=== PATIENT | female | born 1960 | race African-American/Black ===

== ENCOUNTER → 2017-01-18 | Outpatient (CLI) | payer BC ==
--- NOTE | 2017-01-18 17:09 | XR ---
Left foot HISTORY: Osteomyelitis great toe 3 views of the left foot No comparisons There is loss of bone mineralization, some suspected ostial lysis of the distal aspect of the first d igit of the left foot. No dislocation. There is associated soft tissue swelling. Plantar calcaneal sp ur is present. Degenerative changes are present at the intertarsal joints. IMPRESSION: Osteomyelitis first digit.
== END ==
LOC: RADXRMAIN 12:14
PROVIDERS: ATTEND Podiatrist Foot Surgery
DX: M86.8X7 Other osteomyelitis, ankle and foot (principal)

== ENCOUNTER → 2017-02-13 | Outpatient (CLI) | payer BC ==
--- NOTE | 2017-02-13 11:23 | US ---
LOWER EXTREMITY VENOUS INSUFFICIENCY SIDE PERFORMED: Bilateral 1) Color flow is present and patency is documented in the following vessels. No DVT or SVT is noted . ? EIV ? Common Femoral Vein ? Deep Femoral Vein ? Femoral Vein ? Popliteal Vein ? Proximal Calf Veins ? Greater Saph Vein ? Upper Small Saph Vein 2) There is venous reflux noted at the following venous levels: None No ultrasound evidence for acute DVT in either lower extremity. No suspicious venous reflux seen bila terally during real-time scanning per technologist. IMPRESSION: As above, unremarkable study.
--- NOTE | 2017-02-15 10:18 | P.ARTDOP ---
Arterial Doppler LOWER EXTREMITY ARTERIAL DOPPLER: DATE OF SERVICE: 02/13/2017 Reason for study: Left leg pain. Doppler waveforms: Multiphasic bilaterally throughout. Pulse volume recording: Normal configuration. Pressure gradients: None. Ankle-brachial indices: Greater than 1 on the left and 0.99 on the right Toe pressures: 98 on the right, 98 on the left Impression: Normal study.
== END | disposition home or self-care (01) ==
LOC: RADUSWWP 09:44
PROVIDERS: ATTEND Surgery
DX: M79.605 Pain in left leg (principal)
CPT/HCPCS: 93923; 93970

== ENCOUNTER → 2017-02-17 | Outpatient (CLI) | payer BC ==
--- NOTE | 2017-02-17 09:47 | MM ---
Reason for exam: additional evaluation requested from prior study. Last mammogram was performed 1 year and 3 months ago. History: Family history of breast cancer in 3 aunts and breast cancer in mother at age 38. Indicated problem(s): pain in both breasts. Physical Findings: Nurse did not find any significant physical abnormalities on exam. MG Diagnostic Mammo w CAD SHARON Bilateral CC, MLO, and XCCL view(s) were taken. Prior study comparison: November 20, 2015, bilateral MG 3d screening mammo w/cad. October 06, 2014, mammogram, performed at [facility]. The breast tissue is almost entirely fat. There is chronic nodularity in the right breast. No significant new findings when compared with previous films. These results were verbally communicated with the patient and result sheet given to the patient on 02/17/17. ASSESSMENT: Benign, BI-RAD 2 RECOMMENDATION: Routine screening mammogram of both breasts in 1 year. Manage patient on a clinical basis. Consider BRHCA testing secondary to family history.
== END | disposition home or self-care (01) ==
LOC: RADMAMWWP 07:47
PROVIDERS: ATTEND Family Medicine
DX: N64.4 Mastodynia (principal)

== ENCOUNTER 2021-07-31 01:35 | Inpatient (IN) | payer BC ==
[2021-07-31] MEDS ORDERED: SODIUM CHLORIDE 0.9% 500 ML 500 ML IV STA (02:09)
[2021-07-31] MEDS ORDERED: IBUPROFEN IV 800 MG in SODIUM CHLORIDE 0.9% 250 ML IV ONE (02:11)
[2021-07-31] MEDS ORDERED: DEXAMETHASONE SOD PHOSPHATE 10 MG/ML 1 ML VIAL IVP STA (02:11)
--- NOTE | 2021-07-31 02:39 | ED ---
General Adult HPI - General Chief complaint: Shortness of Breath Stated complaint: SOB, weakness Time Seen by Provider: 07/31/21 02:05 Source: patient, family Mode of arrival: ambulatory Limitations: no limitations - History of Present Illness Initial comments: 60-year-old female patient presents to the emergency department today for evaluation of increased shortness of breath. Patient states she's been sick for the last week with cough and upper respiratory symptoms. States she has had body aches and weakness. She is unsure she's had fevers throughout the week. She does have history of asthma and has been doing breathing treatments, states she had one breathing treatment earlier in the day. She denies taking any other medications. Denies any other medical problems. She denies any nausea, vomiting, diarrhea. Denies any chest pain. Denies coughing up sputum. She is not vaccinated for Covid. Patient denies any recent rash, abdominal pain, constipation, back pain, numbness, tingling, dizziness, hematuria, dysuria, urinary urgency, urinary frequency, headache, visual changes, or any other complaints. - Related Data Home Medications Medication Instructions Recorded Confirmed Lisinopril-Hctz 20-25 mg 1 tab PO HS 02/24/15 02/21/17 [Zestoretic 20-25] Acetaminophen [Tylenol] 650 mg PO Q6HR PRN 01/24/17 02/21/17 Biotin 10,000 mcg PO HS 01/31/17 02/21/17 Calcium Carbonate/Vitamin D3 1 tab PO HS 01/31/17 02/21/17 [Calcium 500-Vit D3 200 Tablet] Montelukast [Singulair] 10 mg PO HS 01/31/17 02/21/17 Multivitamin [Multiple Vitamins] 1 tab PO DAILY 01/31/17 02/21/17 Allergies Allergy/AdvReac Type Severity Reaction Status Date / Time clarithromycin [From Biaxin] AdvReac Rash/Hives Verified 07/31/21 01:52 Review of Systems ROS Statement: Those systems with pertinent positive or pertinent negative responses have been documented in the HPI. ROS Other: All systems not noted in ROS Statement are negative. Past Medical History Past Medical History: Asthma, Hypertension History of Any Multi-Drug Resistant Organisms: None Reported Past Surgical History: Orthopedic Surgery Additional Past Surgical History / Comment(s): ganglion cyst removal x2, left knee replacement, lasix eye surgery Past Anesthesia/Blood Transfusion Reactions: No Reported Reaction Past Psychological History: No Psychological Hx Reported Smoking Status: Never smoker Past Alcohol Use History: Occasional Past Drug Use History: None Reported - Past Family History Mother Family Medical History: Cancer Additional Family Medical History / Comment(s): BREAST Father Family Medical History: Cancer, Prostate Disorder Additional Family Medical History / Comment(s): LUNG PROSTATE Sister(s) Family Medical History: Cancer Additional Family Medical History / Comment(s): THYROID AND HIP CANCER General Exam Limitations: no limitations General appearance: alert, in no apparent distress ENT exam: Present: normal exam, normal oropharynx, mucous membranes moist Respiratory exam: Present: normal lung sounds bilaterally, respiratory distress, other (Tachypnea; abdominal accessory muscle use). Absent: wheezes, rales, rhonchi, stridor Cardiovascular Exam: Present: normal rhythm, tachycardia, normal heart sounds. Absent: systolic murmur, diastolic murmur, rubs, gallop, clicks GI/Abdominal exam: Present: soft, normal bowel sounds. Absent: distended, tenderness, guarding, rebound, rigid Neurological exam: Present: alert, oriented X3, CN II-XII intact Psychiatric exam: Present: normal affect, normal mood Skin exam: Present: warm, dry, intact, normal color. Absent: rash Course Vital Signs 07/31/21 07/31/21 01:48 03:44 Temperature 101.4 F H 99.9 F H Pulse Rate 101 H 84 Respiratory 20 18 Rate Blood Pressure 157/77 139/79 O2 Sat by Pulse 86 L 96 Oximetry Medical Decision Making - Medical Decision Making 60 year-old female patient sick for the last week with upper respiratory symptoms and cough, presenting for increased shortness of breath. Tested positive for COVID-19, xray showed extensive right lung pneumonia. Labs revealed elevated d-dimer 1.45. CTA chest was added and is pending. She was given Decad cooper IV, IV ibuprofen, and IV fluids. Oxygen saturation on arrival was mid 80s on room air. She is currently maintained on non-rebreather, satting at 96%. She remains short of breath and tachypneic. She will be admitted for further evaluation and treatment. Pulmonology will be consulted. We will continue steroids and add vitamins and ventolin inhaler. Case discussed with my attending Dr. Hutchins. - Lab Data Result diagrams: 07/31/21 02:29 07/31/21 02:29 Lab Results 07/31/21 07/31/21 07/31/21 Range/Units 02:29 02:29 02:29 WBC 5.7 (3.8-10.6) k/uL RBC 4.08 (3.80-5.40) m/uL Hgb 12.2 (11.4-16.0) gm/dL Hct 34.9 (34.0-46.0) % MCV 85.4 (80.0-100.0) fL MCH 29.8 (25.0-35.0) pg MCHC 34.9 (31.0-37.0) g/dL RDW 15.2 (11.5-15.5) % Plt Count 243 (150-450) k/uL MPV 8.5 Neutrophils % 76 % Lymphocytes % 16 % Monocytes % 5 % Eosinophils % 0 % Basophils % 0 % Neutrophils # 4.3 (1.3-7.7) k/uL Lymphocytes # 0.9 L (1.0-4.8) k/uL Monocytes # 0.3 (0-1.0) k/uL Eosinophils # 0.0 (0-0.7) k/uL Basophils # 0.0 (0-0.2) k/uL PT 10.1 (9.0-12.0) sec INR 0.9 (<1.2) APTT 23.9 (22.0-30.0) sec D-Dimer 1.45 H (<0.60) mg/L FEU Sodium 138 (137-145) mmol/L Potassium 3.9 (3.5-5.1) mmol/L Chloride 99 (98-107) mmol/L Carbon Dioxide 30 (22-30) mmol/L Anion Gap 9 mmol/L BUN 17 (7-17) mg/dL Creatinine 0.85 (0.52-1.04) mg/dL Est GFR (CKD-EPI)AfAm 86 (>60 ml/min/1.73 sqM) Est GFR (CKD-EPI)NonAf 75 (>60 ml/min/1.73 sqM) Glucose 133 H (74-99) mg/dL Plasma Lactic Acid Godfrey (0.7-2.0) mmol/L Calcium 8.9 (8.4-10.2) mg/dL Magnesium 2.1 (1.6-2.3) mg/dL Total Bilirubin 1.1 (0.2-1.3) mg/dL AST 96 H (14-36) U/L ALT 41 H (4-34) U/L Alkaline Phosphatase 85 (38-126) U/L Troponin I (0.000-0.034) ng/mL Total Protein 7.3 (6.3-8.2) g/dL Albumin 4.0 (3.5-5.0) g/dL Coronavirus (PCR) (Not Detectd) 07/31/21 07/31/21 07/31/21 Range/Units 02:29 02:29 02:29 WBC (3.8-10.6) k/uL RBC (3.80-5.40) m/uL Hgb (11.4-16.0) gm/dL Hct (34.0-46.0) % MCV (80.0-100.0) fL MCH (25.0-35.0) pg MCHC (31.0-37.0) g/dL RDW (11.5-15.5) % Plt Count (150-450) k/uL MPV Neutrophils % % Lymphocytes % % Monocytes % % Eosinophils % % Basophils % % Neutrophils # (1.3-7.7) k/uL Lymphocytes # (1.0-4.8) k/uL Monocytes # (0-1.0) k/uL Eosinophils # (0-0.7) k/uL Basophils # (0-0.2) k/uL PT (9.0-12.0) sec INR (<1.2) APTT (22.0-30.0) sec D-Dimer (<0.60) mg/L FEU Sodium (137-145) mmol/L Potassium (3.5-5.1) mmol/L Chloride (98-107) mmol/L Carbon Dioxide (22-30) mmol/L Anion Gap mmol/L BUN (7-17) mg/dL Creatinine (0.52-1.04) mg/dL Est GFR (CKD-EPI)AfAm (>60 ml/min/1.73 sqM) Est GFR (CKD-EPI)NonAf (>60 ml/min/1.73 sqM) Glucose (74-99) mg/dL Plasma Lactic Acid Godfrey 1.2 (0.7-2.0) mmol/L Calcium (8.4-10.2) mg/dL Magnesium (1.6-2.3) mg/dL Total Bilirubin (0.2-1.3) mg/dL AST (14-36) U/L ALT (4-34) U/L Alkaline Phosphatase (38-126) U/L Troponin I 0.012 (0.000-0.034) ng/mL Total Protein (6.3-8.2) g/dL Albumin (3.5-5.0) g/dL Coronavirus (PCR) Detected A (Not Detectd) - Radiology Data Radiology results: report reviewed, image reviewed 2 views of the chest are obtained. Report reviewed in its entirety. Impression by Dr. Dyson shows evidence for some diffuse pneumonia in the right lung with right pleural effusion. Limited exam. Abnormalities appear new compared to old exam. Disposition Clinical Impression: Acute hypoxemic respiratory failure due to COVID-19, Pneumonia due to COVID-19 virus Disposition: ADMITTED IP TO THIS [facility] Condition: Serious Referrals: Juan Gardner MD [Primary Care Provider] - 1-2 days Decision to Admit Reason: Admit from EC Decision Date: 07/31/21 Decision Time: 04:05
[2021-07-31 02:47] LABS: Basophils % (A) 0 %; Eosinophils % (A) 0 %; HCT 34.9 % (34.0-46.0); HGB 12.2 gm/dL (11.4-16.0); Lymphocytes # (A) 0.9 k/uL (1.0-4.8); Lymphocytes % (A) 16 %; MCH 29.8 pg (25.0-35.0); MCHC 34.9 g/dL (31.0-37.0); MCV 85.4 fL (80.0-100.0); Mean Platelet Volume 8.5; Monocytes # (A) 0.3 k/uL (0-1.0); Monocytes % (A) 5 %; Neutrophils # (A) 4.3 k/uL (1.3-7.7); Neutrophils % (A) 76 %; Platelet Count 243 k/uL (150-450); RBC 4.08 m/uL (3.80-5.40); RDW 15.2 % (11.5-15.5); WBC 5.7 k/uL (3.8-10.6)
[2021-07-31 02:58] LABS: Calcium 8.9 mg/dL (8.4-10.2); Magnesium 2.1 mg/dL (1.6-2.3); Potassium 3.9 mmol/L (3.5-5.1); Total Bilirubin 1.1 mg/dL (0.2-1.3); Total Protein 7.3 g/dL (6.3-8.2)
[2021-07-31 03:26] LABS: INR 0.9 (<1.2); Partial Thromboplastin Time 23.9 sec (22.0-30.0); Prothrombin Time 10.1 sec (9.0-12.0)
--- NOTE | 2021-07-31 03:30 | XR ---
EXAMINATION TYPE: XR chest 2V DATE OF EXAM: 07/31/2021 COMPARISON: 01/02/2013 HISTORY: Short of breath TECHNIQUE: 2 views FINDINGS: Exam limited by patient's size. There is some diffuse airspace infiltrate in the right lung . Left lung is relatively clear. There is probably some right pleural effusion. There appears to be f luid in the right major fissure. Bony thorax is intact. IMPRESSION: There is evidence for some diffuse pneumonia in the right lung with right pleural effusio n. Limited exam. Abnormalities appear new compared to old exam.
[2021-07-31] MEDS ORDERED: KETOROLAC 15 MG/ML 1 ML VIAL IVP PRN (04:02)
[2021-07-31] MEDS ORDERED: ONDANSETRON 4 MG/2 ML VIAL IVP PRN (04:02)
[2021-07-31] MEDS ORDERED: NALOXONE 0.4 MG/ML 1 ML VIAL IV PRN (04:02)
[2021-07-31] MEDS ORDERED: ALBUTEROL HFA INHALER INHALATION PRN (04:04)
[2021-07-31] MEDS ORDERED: ENOXAPARIN 60 MG/0.6 ML SYRINGE SQ STA (04:21)
[2021-07-31] MEDS ORDERED: HYDROmorphone 0.5 MG/0.5 ML SYRINGE IVP STA (04:29)
[2021-07-31] MEDS ORDERED: REMDESIVIR 200 MG in SODIUM CHLORIDE 0.9% 250 ML IVPB ONE (04:30)
--- NOTE | 2021-07-31 04:52 | CT ---
EXAMINATION TYPE: CT chest angio for PE DATE OF EXAM: 07/31/2021 COMPARISON: None HISTORY: SOB CT DLP: 878.3 mGycm Automated exposure control for dose reduction was used. CONTRAST: Performed with IV Contrast, patient injected with 65 mL of Isovue 370. There are 3-D post processed images. There is some patchy predominantly groundglass interstitial infiltrate in both lungs and much more on the right side compared to the left. There is some pleural thickening at the posterior lung bases. T here is some consolidation and atelectasis at the posterior lung bases. The thoracic spine is intact. There is no compression fracture. There is some degenerative spurring in the thoracic spine. Sternum is intact. There is no mediastinal adenopathy. Thoracic aorta is intact. There is no aneurysm or dissection. There is no evidence of filling defect in the pulmonary arteries. Exam limited by patient's size. The re are some right bronchial lymph nodes measuring up to 2 cm. IMPRESSION: No evidence of pulmonary embolism. Moderate bilateral pneumonia. Right bronchial adenopathy. This is consistent with pneumonia.
[2021-07-31] MEDS: ALBUTEROL HFA INHALER INHALATION SCH ×4 (08:03→19:45)
[2021-07-31] MEDS: ACETAMINOPHEN TAB 325 MG TAB PO PRN (09:09)
[2021-07-31] MEDS: CHOLECALCIFEROL 125 MCG (5000 IU) TABLET PO SCH (09:09)
[2021-07-31] MEDS: ENOXAPARIN 60 MG/0.6 ML SYRINGE SQ SCH ×2 (09:10→19:41)
[2021-07-31] MEDS: ZINC SULFATE 220 MG CAP PO SCH (09:10)
[2021-07-31] MEDS: ASCORBIC ACID 500 MG TAB PO SCH (09:10)
[2021-07-31] MEDS: DEXAMETHASONE SOD PHOSPHATE 10 MG/ML 1 ML VIAL IVP SCH (09:11)
--- NOTE | 2021-07-31 10:02 | P.CNPUL ---
History of Present Illness Consult date: 07/31/21 Requesting physician: Spencer Pierce Reason for consult: chest pain, pneumonia Chief complaint: Cough and shortness of breath History of present illness: This is a 60-year-old -[place] female, known history of asthma and hypertension, morbid obesity, BMI of 39.2, not vaccinated against COVID-19 infection, patient presented to the ER with 1 week history of cough, shortness of breath, low-grade fever, aches and pains, weakness, patient was reevaluated, and she was found to have positive COVID-19 PCR. And she was also found to have diffuse bilateral infiltrates on her chest x-ray consistent with COVID-19 pneumonia. Patient required nonrebreather mask/15 L nasal cannula, and her O2 saturation was in the low 90s. CT of the chest showed no evidence of pulmonary embolism, there was evidence of right sided adenopathy and moderate bilateral pneumonia. CBC was relatively normal except the patient was noted to be lymphopenic, she had elevated d-dimer 1.45. Normal renal profile, elevated liver enzymes with AST of 96 AST of 41 and her blood sugar is 133. Patient was admitted, and this consult was initiated. Review of Systems Constitutional: Fever, aches and pains, weakness HEENT: No loss of sensation of taste or smell. No significant nasal congestion. Pulmonary: As noted in HPI Cardiac: Negative GI: Negative Genitourinary: Negative Musculoskeletal: Negative Skin: Negative Endocrine: Negative Hematologic: Negative Psychiatric: Negative Neurologic: Past Medical History Past Medical History: Asthma, Hypertension History of Any Multi-Drug Resistant Organisms: None Reported Past Surgical History: Orthopedic Surgery Additional Past Surgical History / Comment(s): ganglion cyst removal x2, left knee replacement, lasix eye surgery Past Anesthesia/Blood Transfusion Reactions: No Reported Reaction Past Psychological History: No Psychological Hx Reported Smoking Status: Never smoker Past Alcohol Use History: Occasional Past Drug Use History: None Reported - Past Family History Mother Family Medical History: Cancer Additional Family Medical History / Comment(s): BREAST Father Family Medical History: Cancer, Prostate Disorder Additional Family Medical History / Comment(s): LUNG PROSTATE Sister(s) Family Medical History: Cancer Additional Family Medical History / Comment(s): THYROID AND HIP CANCER Medications and Allergies Home Medications Medication Instructions Recorded Confirmed Type Albuterol Inhaler [Ventolin Hfa 2 puff INHALATION RT-Q6H PRN 07/31/21 07/31/21 History Inhaler] Albuterol Nebulized [Ventolin 2.5 mg INHALATION RT-Q6H PRN 07/31/21 07/31/21 History Nebulized] Beclomethasone Dipropionate [Qvar 1 puff INHALATION RT-BID 07/31/21 07/31/21 History 80mcg Redihaler] Allergies Allergy/AdvReac Type Severity Reaction Status Date / Time clarithromycin [From Biaxin] AdvReac Rash/Hives Verified 07/31/21 07:29 Physical Exam Vitals: Vital Signs Temp Pulse Resp BP Pulse Ox 07/31/21 09:15 73 20 120/69 97 07/31/21 08:04 95 07/31/21 07:32 99.0 F 66 18 141/86 95 07/31/21 06:14 70 18 132/75 94 L 07/31/21 03:44 99.9 F H 84 18 139/79 96 07/31/21 01:48 101.4 F H 101 H 20 157/77 86 L Intake and Output 07/30/21 07/31/21 07/31/21 22:59 06:59 14:59 Other: Weight 113.398 kg Physical Exam: Revealed 60-year-old -[place] female, morbidly obese, on non-rebreather mask, in no distress. Head: Atraumatic, normocephalic. HEENT:[Neck is supple.] [No neck masses.] [No thyromegaly.] [No JVD.] Chest: [Medical chest expansion, crackles at the bases bilaterally. Cardiac Exam: Normal S1 and S2, no S3 gallop. Abdomen: [Obese, Soft, nontender, no megaly, no rebound, no guarding, normal bowel sounds.] Extremities: [No clubbing, no edema, no cyanosis.] Neurological Exam: [No focal neurologic deficit.] Alert oriented 3. Psychiatric: Normal mood, affect and normal mental status examination. Skin: No rashes. Results - Laboratory Findings CBC and BMP: 07/31/21 02:29 07/31/21 02:29 PT/INR, D-dimer PT 10.1 sec (9.0-12.0) 07/31/21 02:29 INR 0.9 (<1.2) 07/31/21 02:29 D-Dimer 1.45 mg/L FEU (<0.60) H 07/31/21 02:29 Abnormal lab findings: Abnormal Labs 07/31/21 07/31/21 07/31/21 02:29 02:29 02:29 Lymphocytes # 0.9 L D-Dimer 1.45 H Glucose 133 H AST 96 H ALT 41 H Coronavirus (PCR) 07/31/21 02:29 Lymphocytes # D-Dimer Glucose AST ALT Coronavirus (PCR) Detected A - Diagnostic Findings Chest x-ray: image reviewed CT scan - chest: image reviewed (As noted in HPI.) Assessment and Plan Assessment: Pression: Acute hypoxic respiratory failure secondary to COVID-19 pneumonia in a patient who is not vaccinated History of mild intermittent asthma Elevated d-dimer but negative CT angiogram for pulmonary embolism Benign essential hypertension. Recommendation: Will start the patient on baricitinib Continue oxygen and titrate accordingly Continue to monitor inflammatory markers. COVID-19 cocktail as ordered already. Will monitor closely, patient was made aware that she is relatively high risk for deterioration and worsening symptoms of COVID-19 pneumonia GI and DVT prophylaxis. COVID-19 cocktail. We will continue to follow Time with Patient: Greater than 30
[2021-07-31] MEDS: BARICITINIB 2 MG TABLET PO SCH (12:16)
--- NOTE | 2021-07-31 19:47 | P.HPIM ---
History of Present Illness H&P Date: 07/31/21 This is a 60-year-old pleasant lady, patient of Dr. Gardner. Patient has history of mild intermittent asthma, hypertension, and arm BMI of 39, not vaccinated against COVID-19 infection. She never had any prior history of cold infection either, however she had symptoms of myalgia, achiness,since July 20, there after she got more short-winded, with dyspnea and exertion. Patient denies any sick contact, she lives alone, and with the testing, she is surprised that she had the covid infection, in the emergency room. Emergency room, she was hypoxemic, requiring a nonrebreather mask, 15 L nasal ca nnula, she presented with O2 sats in the low 90s, x-rays shows significant diffuse bilateral infiltrates, CT of the chest, shows no evidence of pulmonary emboli, there is significant right-sided adenopathy, with bilateral pneumonia. D-dimer was elevated at 1.45, AST and ALT is slightly elevated, with blood sugar of 113, she was given 1 dose of REM does appear in the emergency room she mentioned that her symptoms were only of one week, however with further inquiry, symptoms are past that 10 day michael. Next Patient was admitted, for hypoxemic respiratory failure with consultation to Dr. Lopez, for moderate severe Covid, baricitnib 4 mg daily, Decadron 6 mg IV daily, Lovenox 60 mg every 12 hours, zinc and vitaminC currently pulse ox, 90- 97%, on 15 L mental rebreather mask, T max of 101.4 the kidney, between 20-22 Crestor 8, heart rate in the 70s Review of Systems Constitutional: Reports as per HPI, Reports chills, Reports fatigue, Reports fever, Reports night sweats, Reports poor appetite, Reports sweats Ears, nose, mouth and throat: Reports as per HPI, Denies ant. neck pain, Denies bleeding gums, Denies dental pain, Denies dysphagia, Denies epistaxis, Denies headache, Denies hoarseness, Denies mouth pain, Denies nasal congestion, Denies nasal discharge, Denies neck fullness/pressure, Denies neck lump, Denies nose pain, Denies odynophagia, Denies post-nasal drip, Denies sinus pain, Denies sinus pressure, Denies swelling in mouth, Denies swelling in throat, Denies sore throat, Denies vertigo, Denies voice changes Cardiovascular: Reports as per HPI, Reports dyspnea on exertion Respiratory: Reports as per HPI, Reports cough, Reports cough with sputum, Reports dyspnea, Denies pain on inspiration, Denies pleurisy, Denies wheezing Gastrointestinal: Reports as per HPI, Denies abdominal pain, Denies belching, Denies bloating, Denies BRBPR, Denies change in bowel habits, Denies coffee ground emesis, Denies constipation, Denies diarrhea, Denies dyspepsia, Denies early satiety, Denies excessive gas, Denies heartburn, Denies hematemesis, Denies hematochezia, Denies indigestion, Denies jaundice, Denies lactose intolerance, Denies loss of appetite, Denies melena, Denies nausea, Denies vomiting Genitourinary: Reports as per HPI Menstruation: Reports as per HPI Musculoskeletal: Reports as per HPI Integumentary: Reports as per HPI, Denies color changes, Denies foot/leg ulcers Neurological: Reports as per HPI, Denies aphasia, Denies ataxia, Denies change in mentation, Denies head injury, Denies hearing difficulties, Denies lack of coordination, Denies loss of vision, Denies syncope Psychiatric: Reports as per HPI, Reports change in appetite, Denies disorientation, Denies hypersomnia Endocrine: Reports as per HPI Hematologic/Lymphatic: Reports as per HPI, Reports easy bleeding Allergic/Immunologic: Reports as per HPI Past Medical History Past Medical History: Asthma, Hypertension History of Any Multi-Drug Resistant Organisms: None Reported Past Surgical History: Orthopedic Surgery Additional Past Surgical History / Comment(s): ganglion cyst removal x2, left knee replacement, lasix eye surgery Past Anesthesia/Blood Transfusion Reactions: No Reported Reaction Past Psychological History: No Psychological Hx Reported Smoking Status: Never smoker Past Alcohol Use History: Occasional Past Drug Use History: None Reported - Past Family History Mother Family Medical History: Cancer Additional Family Medical History / Comment(s): BREAST Father Family Medical History: Cancer, Prostate Disorder Additional Family Medical History / Comment(s): LUNG PROSTATE Sister(s) Family Medical History: Cancer Additional Family Medical History / Comment(s): THYROID AND HIP CANCER Medications and Allergies Home Medications Medication Instructions Recorded Confirmed Type Albuterol Inhaler [Ventolin Hfa 2 puff INHALATION RT-Q6H PRN 07/31/21 07/31/21 History Inhaler] Albuterol Nebulized [Ventolin 2.5 mg INHALATION RT-Q6H PRN 07/31/21 07/31/21 History Nebulized] Beclomethasone Dipropionate [Qvar 1 puff INHALATION RT-BID 07/31/21 07/31/21 History 80mcg Redihaler] Allergies Allergy/AdvReac Type Severity Reaction Status Date / Time clarithromycin [From Biaxin] AdvReac Rash/Hives Verified 07/31/21 07:29 Physical Exam Vitals: Vital Signs Temp Pulse Resp BP Pulse Ox 07/31/21 12:18 78 18 122/72 94 L 07/31/21 09:15 73 20 120/69 97 07/31/21 08:04 95 07/31/21 07:32 99.0 F 66 18 141/86 95 07/31/21 06:14 70 18 132/75 94 L 07/31/21 03:44 99.9 F H 84 18 139/79 96 07/31/21 01:48 101.4 F H 101 H 20 157/77 86 L Intake and Output 07/30/21 07/31/21 07/31/21 22:59 06:59 14:59 Other: Weight 113.398 kg - Constitutional General appearance: cooperative, morbidly obese, no acute distress - EENT Eyes: EOMI, PERRLA, dentition normal, normal appearance ENT: NA/AT, normal oropharynx - Neck Neck: normal ROM - Respiratory Respiratory: bilateral: CTA, negative: diminished, dullness, rales - Cardiovascular Rhythm: regular Abnormal Heart Sounds: no systolic murmur, no diastolic murmur, no rub, no S3 Gallop, no S4 Gallop, no click, no other - Gastrointestinal General gastrointestinal: normal bowel sounds, soft - Integumentary Integumentary: decreased turgor, normal - Neurologic Neurologic: CNII-XII intact - Musculoskeletal Musculoskeletal: gait normal, strength equal bilaterally - Psychiatric Psychiatric: A&O x's 3, appropriate affect, intact judgment & insight Results CBC & Chem 7: 07/31/21 02:29 07/31/21 02:29 Labs: Abnormal Lab Results - Last 24 Hours (Table) 11/07/31/21 07/31/21 Range/Units 02:29 02:29 02:29 Lymphocytes # 0.9 L (1.0-4.8) k/uL D-Dimer 1.45 H (<0.60) mg/L FEU Glucose 133 H (74-99) mg/dL AST 96 H (14-36) U/L ALT 41 H (4-34) U/L Coronavirus (PCR) (Not Detectd) 07/31/21 Range/Units 02:29 Lymphocytes # (1.0-4.8) k/uL D-Dimer (<0.60) mg/L FEU Glucose (74-99) mg/dL AST (14-36) U/L ALT (4-34) U/L Coronavirus (PCR) Detected A (Not Detectd) Laboratory Results WBC 5.7 k/uL (3.8-10.6) 07/31/21 02:29 RBC 4.08 m/uL (3.80-5.40) 07/31/21 02:29 Hgb 12.2 gm/dL (11.4-16.0) 07/31/21 02:29 Hct 34.9 % (34.0-46.0) 07/31/21 02:29 MCV 85.4 fL (80.0-100.0) 07/31/21 02:29 MCH 29.8 pg (25.0-35.0) 07/31/21 02:29 MCHC 34.9 g/dL (31.0-37.0) 07/31/21 02:29 RDW 15.2 % (11.5-15.5) 07/31/21 02:29 Plt Count 243 k/uL (150-450) 07/31/21 02:29 MPV 8.5 07/31/21 02:29 Neutrophils % 76 % 07/31/21 02:29 Lymphocytes % 16 % 07/31/21 02:29 Monocytes % 5 % 07/31/21 02:29 Eosinophils % 0 % 07/31/21 02:29 Basophils % 0 % 07/31/21 02:29 Neutrophils # 4.3 k/uL (1.3-7.7) 07/31/21 02:29 Lymphocytes # 0.9 k/uL (1.0-4.8) L 07/31/21 02:29 Monocytes # 0.3 k/uL (0-1.0) 07/31/21 02:29 Eosinophils # 0.0 k/uL (0-0.7) 07/31/21 02:29 Basophils # 0.0 k/uL (0-0.2) 07/31/21 02:29 PT 10.1 sec (9.0-12.0) 07/31/21 02:29 INR 0.9 (<1.2) 07/31/21 02:29 APTT 23.9 sec (22.0-30.0) 07/31/21 02:29 D-Dimer 1.45 mg/L FEU (<0.60) H 07/31/21 02:29 Sodium 138 mmol/L (137-145) 07/31/21 02:29 Potassium 3.9 mmol/L (3.5-5.1) 07/31/21 02:29 Chloride 99 mmol/L (98-107) 07/31/21 02:29 Carbon Dioxide 30 mmol/L (22-30) 07/31/21 02:29 Anion Gap 9 mmol/L 07/31/21 02:29 BUN 17 mg/dL (7-17) 07/31/21 02:29 Creatinine 0.85 mg/dL (0.52-1.04) 07/31/21 02:29 Est GFR (CKD-EPI)AfAm 86 (>60 ml/min/1.73 sqM) 07/31/21 02:29 Est GFR (CKD-EPI)NonAf 75 (>60 ml/min/1.73 sqM) 07/31/21 02:29 Glucose 133 mg/dL (74-99) H 07/31/21 02:29 Plasma Lactic Acid Godfrey 1.2 mmol/L (0.7-2.0) 07/31/21 02:29 Calcium 8.9 mg/dL (8.4-10.2) 07/31/21 02:29 Magnesium 2.1 mg/dL (1.6-2.3) 07/31/21 02:29 Total Bilirubin 1.1 mg/dL (0.2-1.3) 07/31/21 02:29 AST 96 U/L (14-36) H 07/31/21 02:29 ALT 41 U/L (4-34) H 07/31/21 02:29 Alkaline Phosphatase 85 U/L (38-126) 07/31/21 02:29 Troponin I 0.012 ng/mL (0.000-0.034) 07/31/21 02:29 Total Protein 7.3 g/dL (6.3-8.2) 07/31/21 02:29 Albumin 4.0 g/dL (3.5-5.0) 07/31/21 02:29 Coronavirus (PCR) Detected (Not Detectd) A 07/31/21 02:29 Thrombosis Risk Factor Assmnt - DVT/VTE Prophylaxis DVT/VTE Prophylaxis: Pharmacologic Prophylaxis ordered - Choose All That Apply Each Factor Represents 1 point: Obesity (BMI >25), Sepsis (< 1month) Each Risk Factor Represents 2 Points: Age 61-74 years Thrombosis Risk Factor Assessment Total Risk Factor Score: 4 Thrombosis Risk Factor Assessment Level: Moderate Risk Assessment and Plan Plan: 1. acute hypoxemic respiratory failure secondary to acute COVID infection, symptoms starting 07/20/2021, not a candidate for remdesivir, she received one- time dose of remdesivir in the emergency room on July 31 and will not be continued , has moderate to severe covid with cytokine storm, slight elevation of d-dimer, AST ALT, no LDH is obtain, patient is covered with Lovenox 70 mg subcu every 12 hours, requiring 15 L O2 via nonrebreather mask, on the non- vaccinated individual. Consult with pulmonary critical care, continue on bariticnib dexamethasone IV, and Covid vitamins. Negative PE, by our CTAP protocol 2. Diffuse bilateral pneumonia with right bronchial adenopathy, IV Zithromax 2 mild intermittent asthma on albuterol when necessary, continue on Qvar inhaler 3. BMI of 39 at high risk for deterioration DVT prophylaxis, with full dose anticoagulation Lovenox, 1 mg/kg every 12 hours GI prophylaxis, with Protonix Prognosis guarded
[2021-07-31] MEDS: AZITHROMYCIN 500 MG in SODIUM CHLORIDE 0.9% 250 ML IVPB SCH ×2 (21:46→22:14)
[2021-08-01 06:18] LABS: Glucose,Whole Blood 186 mg/dL (75-99)
[2021-08-01] MEDS: PANTOPRAZOLE 40 MG TABLET PO SCH (06:46)
[2021-08-01] MEDS: ALBUTEROL HFA INHALER INHALATION SCH ×4 (07:53→19:41)
[2021-08-01] MEDS: ASCORBIC ACID 500 MG TAB PO SCH (08:51)
[2021-08-01] MEDS: ZINC SULFATE 220 MG CAP PO SCH (08:51)
[2021-08-01] MEDS: ENOXAPARIN 60 MG/0.6 ML SYRINGE SQ SCH ×2 (08:52→21:48)
[2021-08-01] MEDS: DEXAMETHASONE SOD PHOSPHATE 10 MG/ML 1 ML VIAL IVP SCH (08:52)
[2021-08-01 10:38] LABS: Basophils % (A) 0 %; Eosinophils % (A) 0 %; HCT 37.9 % (34.0-46.0); HGB 12.3 gm/dL (11.4-16.0); Lymphocytes # (A) 0.9 k/uL (1.0-4.8); Lymphocytes % (A) 14 %; MCH 28.4 pg (25.0-35.0); MCHC 32.4 g/dL (31.0-37.0); MCV 87.9 fL (80.0-100.0); Mean Platelet Volume 8.8; Monocytes # (A) 0.3 k/uL (0-1.0); Monocytes % (A) 5 %; Neutrophils % (A) 79 %; Platelet Count 308 k/uL (150-450); RBC 4.31 m/uL (3.80-5.40); RDW 14.7 % (11.5-15.5); WBC 6.3 k/uL (3.8-10.6)
[2021-08-01 10:51] LABS: ALT 32 U/L (4-34); AST 43 U/L (14-36); African American GFR (CKD) >90 (>60 ml/min/1.73 sqM); Albumin 3.7 g/dL (3.5-5.0); Alkaline Phosphatase 86 U/L (38-126); Anion Gap 7 mmol/L; Blood Urea Nitrogen 18 mg/dL (7-17); C Reactive Protein 8.1 mg/dL (<1.0); Calcium 9.1 mg/dL (8.4-10.2); Carbon Dioxide 29 mmol/L (22-30); Chloride 102 mmol/L (98-107); Glucose 209 mg/dL (74-99); Non-African American GFR(CKD) >90 (>60 ml/min/1.73 sqM); Potassium 4.5 mmol/L (3.5-5.1); Sodium 138 mmol/L (137-145); Total Bilirubin 0.8 mg/dL (0.2-1.3)
[2021-08-01 11:46] LABS: Glucose,Whole Blood 206 mg/dL (75-99)
[2021-08-01] MEDS: BARICITINIB 2 MG TABLET PO SCH (12:41)
[2021-08-01] MEDS: CHOLECALCIFEROL 125 MCG (5000 IU) TABLET PO SCH (12:41)
[2021-08-01 13:08] LABS: Erythrocyte Sedimentation Rate 83 mm/hr (0-20)
--- NOTE | 2021-08-01 15:35 | P.PN ---
Subjective Progress Note Date: 08/01/21 H&P Date: 07/31/21 This is a 60-year-old pleasant lady, patient of Dr. Gardner. Patient has history of mild intermittent asthma, hypertension, and arm BMI of 39, not vaccinated agains t COVID-19 infection. She never had any prior history of cold infection either, however she had symptoms of myalgia, achiness,since July 20, there after she got more short-winded, with dyspnea and exertion. Patient denies any sick contact, she lives alone, and with the testing, she is surprised that she had the covid infection, in the emergency room. Emergency room, she was hypoxemic, requiring a nonrebreather mask, 15 L nasal cannula, she presented with O2 sats in the low 90s, x-rays shows significant diffuse bilateral infiltrates, CT of the chest, shows no evidence of pulmonary emboli, there is significant right-sided adenopathy, with bilateral pneumonia. D-dimer was elevated at 1.45, AST and ALT is slightly elevated, with blood sugar of 113, she was given 1 dose of REM does appear in the emergency room she mentioned that her symptoms were only of one week, however with further inquiry, symptoms are past that 10 day michael. Next Patient was admitted, for hypoxemic respiratory failure with consultation to Dr. Lopez, for moderate severe Covid, baricitnib 4 mg daily, Decadron 6 mg IV daily, Lovenox 60 mg every 12 hours, zinc and vitaminC currently pulse ox, 90- 97%, on 15 L mental rebreather mask, T max of 101.4 the kidney, between 20-22 Crestor 8, heart rate in the 70s 08/01: Patient remains on a nonrebreather mask, 15 L, pulse ox between 89-93%, 100% FiO2, no fevers, T-max 98.1, nonlabored breathing, patient is not having any conversational dyspnea, has minimal dyspnea on exertion, transaminitis is better, sed rate is still elevated 83, CRP of 8.1, glucose ranges between 186- 206, while on dexamethasone IV. Patient is reasonably doing much better, not a candidate for the REMdesivir maintained on IV dexamethasone, and baricinib Assessment and Plan Plan: 1. acute hypoxemic respiratory failure secondary to acute COVID infection, symptoms starting 07/20/2021, not a candidate for remdesivir, she received one- time dose of remdesivir in the emergency room on July 31 and will not be continued , has moderate to severe covid with cytokine storm, slight elevation of d-dimer, AST ALT, no LDH is obtain, patient is covered with Lovenox 70 mg subcu every 12 hours, requiring 15 L O2 via nonrebreather mask, on the non- vaccinated individual. Consult with pulmonary critical care, continue on bariticnib dexamethasone IV, and Covid vitamins. Negative PE, by our CTAP protocol 2. Diffuse bilateral pneumonia with right bronchial adenopathy, IV Zithromax 2 mild intermittent asthma on albuterol when necessary, continue on Qvar inhaler 3. BMI of 39 at high risk for deterioration DVT prophylaxis, with full dose anticoagulation Lovenox, 1 mg/kg every 12 hours GI prophylaxis, with Protonix Prognosis guarded Review of Systems Constitutional: Reports as per HPI, Reports chills, Reports fatigue, Reports fever, Reports night sweats, Reports poor appetite, Reports sweats Ears, nose, mouth and throat: Reports as per HPI, Denies ant. neck pain, Denies bleeding gums, Denies dental pain, Denies dysphagia, Denies epistaxis, Denies headache, Denies hoarseness, Denies mouth pain, Denies nasal congestion, Denies nasal discharge, Denies neck fullness/pressure, Denies neck lump, Denies nose pain, Denies odynophagia, Denies post-nasal drip, Denies sinus pain, Denies sinus pressure, Denies swelling in mouth, Denies swelling in throat, Denies sore throat, Denies vertigo, Denies voice changes Cardiovascular: Reports as per HPI, Reports dyspnea on exertion Respiratory: Reports as per HPI, Reports cough, Reports cough with sputum, Reports dyspnea, Denies pain on inspiration, Denies pleurisy, Denies wheezing Gastrointestinal: Reports as per HPI, Denies abdominal pain, Denies belching, Denies bloating, Denies BRBPR, Denies change in bowel habits, Denies coffee ground emesis, Denies constipation, Denies diarrhea, Denies dyspepsia, Denies e dm satiety, Denies excessive gas, Denies heartburn, Denies hematemesis, Denies hematochezia, Denies indigestion, Denies jaundice, Denies lactose intolerance, Denies loss of appetite, Denies melena, Denies nausea, Denies vomiting Genitourinary: Reports as per HPI Menstruation: Reports as per HPI Musculoskeletal: Reports as per HPI Integumentary: Reports as per HPI, Denies color changes, Denies foot/leg ulcers Neurological: Reports as per HPI, Denies aphasia, Denies ataxia, Denies change in mentation, Denies head injury, Denies hearing difficulties, Denies lack of coordination, Denies loss of vision, Denies syncope Psychiatric: Reports as per HPI, Reports change in appetite, Denies disorientation, Denies hypersomnia Endocrine: Reports as per HPI Hematologic/Lymphatic: Reports as per HPI, Reports easy bleeding Allergic/Immunologic: Reports as per HPI Vital Signs Temp 98 F 08/01/21 12:15 Pulse 83 08/01/21 12:15 Resp 20 08/01/21 12:15 BP 143/86 08/01/21 12:15 Pulse Ox 93 L 08/01/21 12:15 Intake & Output 07/31/21 08/01/21 08/01/21 18:59 06:59 18:59 Intake Total 118 500 960 Balance 118 500 960 Weight 124.103 kg Intake: IV 20 Invasive Line 3 20 Oral 118 480 960 Other: Voiding Method Toilet # Voids 1 1 1 # Bowel Movements 1 Laboratory Results WBC 6.3 k/uL (3.8-10.6) 08/01/21 08:56 RBC 4.31 m/uL (3.80-5.40) 08/01/21 08:56 Hgb 12.3 gm/dL (11.4-16.0) 08/01/21 08:56 Hct 37.9 % (34.0-46.0) 08/01/21 08:56 MCV 87.9 fL (80.0-100.0) 08/01/21 08:56 MCH 28.4 pg (25.0-35.0) 08/01/21 08:56 MCHC 32.4 g/dL (31.0-37.0) 08/01/21 08:56 RDW 14.7 % (11.5-15.5) 08/01/21 08:56 Plt Count 308 k/uL (150-450) 08/01/21 08:56 MPV 8.8 08/01/21 08:56 Neutrophils % 79 % 08/01/21 08:56 Lymphocytes % 14 % 08/01/21 08:56 Monocytes % 5 % 08/01/21 08:56 Eosinophils % 0 % 08/01/21 08:56 Basophils % 0 % 08/01/21 08:56 Neutrophils # 5.0 k/uL (1.3-7.7) 08/01/21 08:56 Lymphocytes # 0.9 k/uL (1.0-4.8) L 08/01/21 08:56 Monocytes # 0.3 k/uL (0-1.0) 08/01/21 08:56 Eosinophils # 0.0 k/uL (0-0.7) 08/01/21 08:56 Basophils # 0.0 k/uL (0-0.2) 08/01/21 08:56 ESR 83 mm/hr (0-20) H 08/01/21 08:56 PT 10.1 sec (9.0-12.0) 07/31/21 02:29 INR 0.9 (<1.2) 07/31/21 02:29 APTT 23.9 sec (22.0-30.0) 07/31/21 02:29 D-Dimer 1.45 mg/L FEU (<0.60) H 07/31/21 02:29 Sodium 138 mmol/L (137-145) 08/01/21 08:56 Potassium 4.5 mmol/L (3.5-5.1) 08/01/21 08:56 Chloride 102 mmol/L (98-107) 08/01/21 08:56 Carbon Dioxide 29 mmol/L (22-30) 08/01/21 08:56 Anion Gap 7 mmol/L 08/01/21 08:56 BUN 18 mg/dL (7-17) H 08/01/21 08:56 Creatinine 0.68 mg/dL (0.52-1.04) 08/01/21 08:56 Est GFR (CKD-EPI)AfAm >90 (>60 ml/min/1.73 sqM) 08/01/21 08:56 Est GFR (CKD-EPI)NonAf >90 (>60 ml/min/1.73 sqM) 08/01/21 08:56 Glucose 209 mg/dL (74-99) H 08/01/21 08:56 POC Glucose (mg/dL) 206 mg/dL (75-99) H 08/01/21 11:44 POC Glu Monotyper ID Eri Stewart 08/01/21 11:44 Plasma Lactic Acid Godfrey 1.2 mmol/L (0.7-2.0) 07/31/21 02:29 Calcium 9.1 mg/dL (8.4-10.2) 08/01/21 08:56 Magnesium 2.1 mg/dL (1.6-2.3) 07/31/21 02:29 Total Bilirubin 0.8 mg/dL (0.2-1.3) 08/01/21 08:56 AST 43 U/L (14-36) H 08/01/21 08:56 ALT 32 U/L (4-34) 08/01/21 08:56 Alkaline Phosphatase 86 U/L (38-126) 08/01/21 08:56 Troponin I 0.012 ng/mL (0.000-0.034) 07/31/21 02:29 C-Reactive Protein 8.1 mg/dL (<1.0) H 08/01/21 08:56 Total Protein 7.0 g/dL (6.3-8.2) 08/01/21 08:56 Albumin 3.7 g/dL (3.5-5.0) 08/01/21 08:56 Coronavirus (PCR) Detected (Not Detectd) A 07/31/21 02:29 Current Medications Acetaminophen (Acetaminophen Tab 325 Mg Tab) 650 mg PO Q6HR PRN PRN Reason: Mild Pain or Fever > 100.5 Last Admin: 07/31/21 09:09 Dose: 650 mg Documented by: Albuterol Sulfate (Albuterol Hfa Inhaler) 2 puff INHALATION RT-QID PRN PRN Reason: Shortness Of Breath Or Wheezing Albuterol Sulfate (Albuterol Hfa Inhaler) 2 puff INHALATION RT-QID [facility] Last Admin: 08/01/21 11:38 Dose: 2 puff Documented by: Ascorbic Acid (Ascorbic Acid 500 Mg Tab) 1,000 mg PO DAILY [facility] Last Admin: 08/01/21 08:51 Dose: 1,000 mg Documented by: Baricitinib (Baricitinib 2 Mg Tablet) 4 mg PO DAILY@1200 [facility] Stop: 08/13/21 12:01 Last Admin: 08/01/21 12:41 Dose: 4 mg Documented by: Cholecalciferol (Cholecalciferol 125 Mcg (5000 Iu) Tablet) 125 mcg PO DAILY [facility] Last Admin: 08/01/21 12:41 Dose: 125 mcg Documented by: Dexamethasone Sodium Phosphate (Dexamethasone Sod Phosphate 10 Mg/Ml 1 Ml Vial) 6 mg IVP DAILY [facility] Last Admin: 08/01/21 08:52 Dose: 6 mg Documented by: Enoxaparin Sodium (Enoxaparin 60 Mg/0.6 Ml Syringe) 60 mg SQ Q12HR [facility] Last Admin: 08/01/21 08:52 Dose: 60 mg Documented by: Azithromycin 500 mg/ Sodium (Chloride) 250 mls @ 250 mls/hr IVPB HS [facility] Last Admin: 07/31/21 22:14 Dose: 250 mls/hr Documented by: Insulin Aspart (Insulin Aspart (Novolog) 100 Unit/Ml Vial) 0 unit SQ ACHS [facility]; Protocol Naloxone HCl (Naloxone 0.4 Mg/Ml 1 Ml Vial) 0.2 mg IV Q2M PRN PRN Reason: Opioid Reversal Ondansetron HCl (Ondansetron 4 Mg/2 Ml Vial) 4 mg IVP Q8HR PRN PRN Reason: Nausea And Vomiting Pantoprazole Sodium (Pantoprazole 40 Mg Tablet) 40 mg PO AC-[id number] [facility] Last Admin: 08/01/21 06:46 Dose: 40 mg Documented by: Zinc Sulfate (Zinc Sulfate 220 Mg Cap) 220 mg PO DAILY [facility] Last Admin: 08/01/21 08:51 Dose: 220 mg Documented by: Objective - Vital Signs Vital signs: Vital Signs Temp 98 F 08/01/21 12:15 Pulse 83 08/01/21 12:15 Resp 20 08/01/21 12:15 BP 143/86 08/01/21 12:15 Pulse Ox 93 L 08/01/21 12:15 Intake & Output 07/31/21 08/01/21 08/01/21 18:59 06:59 18:59 Intake Total 118 500 480 Balance 118 500 480 Weight 124.103 kg Intake: IV 20 Invasive Line 3 20 Oral 118 480 480 Other: Voiding Method Toilet # Voids 1 1 - Labs CBC & Chem 7: 08/01/21 08:56 08/01/21 08:56 Labs: Abnormal Lab Results - Last 24 Hours (Table) 08/01/21 08/01/21 08/01/21 Range/Units 06:17 08:56 08:56 Lymphocytes # 0.9 L (1.0-4.8) k/uL ESR 83 H (0-20) mm/hr BUN 18 H (7-17) mg/dL Glucose 209 H (74-99) mg/dL POC Glucose (mg/dL) 186 H (75-99) mg/dL AST 43 H (14-36) U/L C-Reactive Protein 8.1 H (<1.0) mg/dL 08/01/21 Range/Units 11:44 Lymphocytes # (1.0-4.8) k/uL ESR (0-20) mm/hr BUN (7-17) mg/dL Glucose (74-99) mg/dL POC Glucose (mg/dL) 206 H (75-99) mg/dL AST (14-36) U/L C-Reactive Protein (<1.0) mg/dL
--- NOTE | 2021-08-01 16:02 | P.PN ---
Subjective Progress Note Date: 08/01/21 Principal diagnosis: Acute hypoxic and 40 failure secondary to COVID-19 pneumonia This is a 60-year-old -Micron[place] female, known history of asthma and hypertension, morbid obesity, BMI of 39.2, not vaccinated against COVID-19 infection, patient presented to the ER with 1 week history of cough, shortness of breath, low-grade fever, aches and pains, weakness, patient was reevaluated, and she was found to have positive COVID-19 PCR. And she was also found to have diffuse bilateral infiltrates on her chest x-ray consistent with COVID-19 pneumonia. Patient required nonrebreather mask/15 L nasal cannula, and her O2 saturation was in the low 90s. CT of the chest showed no evidence of pulmonary embolism, there was evidence of right sided adenopathy and moderate bilateral pneumonia. CBC was relatively normal except the patient was noted to be lymphopenic, she had elevated d-dimer 1.45. Normal renal profile, elevated liver enzymes with AST of 96 AST of 41 and her blood sugar is 133. Patient was admitted, and this consult was initiated. Patient was reevaluated today on 08/01/21, remains on a nonrebreather mask, O2 saturation 93%. However the patient tells me today that she is feeling better breathing easier, she continues to have intermittent cough, and shortness of breath upon activity. No fever no chills no hemoptysis no chest pain. CBC is relatively normal electrolytes are normal renal profile is normal Objective - Vital Signs Vital signs: Vital Signs Temp 98 F 08/01/21 12:15 Pulse 83 08/01/21 12:15 Resp 20 08/01/21 12:15 BP 143/86 08/01/21 12:15 Pulse Ox 93 L 08/01/21 12:15 Intake & Output 07/31/21 08/01/21 08/01/21 18:59 06:59 18:59 Intake Total 118 500 960 Balance 118 500 960 Weight 124.103 kg Intake: IV 20 Invasive Line 3 20 Oral 118 480 960 Other: Voiding Method Toilet # Voids 1 1 1 # Bowel Movements 1 - Exam Physical Exam: Revealed 60-year-old -Micronesian female, morbidly obese, on non-rebreather mask, in no distress. Head: Atraumatic, normocephalic. HEENT:[Neck is supple.] [No neck masses.] [No thyromegaly.] [No JVD.] Chest: [Symmetrical chest expansion, crackles at the bases bilaterally. Cardiac Exam: Normal S1 and S2, no S3 gallop. Abdomen: [Obese, Soft, nontender, no megaly, no rebound, no guarding, normal bowel sounds.] Extremities: [No clubbing, no edema, no cyanosis.] Neurological Exam: [No focal neurologic deficit.] Alert oriented 3. Psychiatric: Normal mood, affect and normal mental status examination. Skin: No rashes. - Labs CBC & Chem 7: 08/01/21 08:56 08/01/21 08:56 Labs: Abnormal Lab Results - Last 24 Hours (Table) 08/01/21 08/01/21 08/01/21 Range/Units 06:17 08:56 08:56 Lymphocytes # 0.9 L (1.0-4.8) k/uL ESR 83 H (0-20) mm/hr BUN 18 H (7-17) mg/dL Glucose 209 H (74-99) mg/dL POC Glucose (mg/dL) 186 H (75-99) mg/dL AST 43 H (14-36) U/L C-Reactive Protein 8.1 H (<1.0) mg/dL 08/01/21 Range/Units 11:44 Lymphocytes # (1.0-4.8) k/uL ESR (0-20) mm/hr BUN (7-17) mg/dL Glucose (74-99) mg/dL POC Glucose (mg/dL) 206 H (75-99) mg/dL AST (14-36) U/L C-Reactive Protein (<1.0) mg/dL Assessment and Plan Assessment: Pression: Acute hypoxic respiratory failure secondary to COVID-19 pneumonia in a patient who is not vaccinated History of mild intermittent asthma Elevated d-dimer but negative CT angiogram for pulmonary embolism Benign essential hypertension. Recommendation: Continue baricitinib patient is on 4 mg by mouth daily she is to receive 14 doses total, today was her dose #2. Continue oxygen and titrate accordingly Continue to monitor inflammatory markers. COVID-19 cocktail as ordered already. GI and DVT prophylaxis. COVID-19 cocktail. We will continue to follow Time with Patient: Less than 30
[2021-08-01 16:38] LABS: Glucose,Whole Blood 233 mg/dL (75-99)
[2021-08-01] MEDS: INSULIN ASPART (NovoLOG) 100 UNIT/ML VIAL SQ SCH ×2 (17:24→21:48)
[2021-08-01] MEDS: FLUTICASONE 110 MCG INHALER INHALATION SCH (19:41)
[2021-08-01 20:06] LABS: Glucose,Whole Blood 221 mg/dL (75-99)
[2021-08-01] MEDS: AZITHROMYCIN 500 MG in SODIUM CHLORIDE 0.9% 250 ML IVPB SCH (21:48)
[2021-08-02] MEDS: ACETAMINOPHEN TAB 325 MG TAB PO PRN (05:51)
[2021-08-02 06:08] LABS: Glucose,Whole Blood 110 mg/dL (75-99)
[2021-08-02] MEDS: PANTOPRAZOLE 40 MG TABLET PO SCH (06:23)
[2021-08-02] MEDS: INSULIN ASPART (NovoLOG) 100 UNIT/ML VIAL SQ SCH ×4 (06:23→20:34)
[2021-08-02] MEDS: ASCORBIC ACID 500 MG TAB PO SCH (08:44)
[2021-08-02] MEDS: ZINC SULFATE 220 MG CAP PO SCH (08:44)
[2021-08-02] MEDS: CHOLECALCIFEROL 125 MCG (5000 IU) TABLET PO SCH (08:44)
[2021-08-02] MEDS: DEXAMETHASONE SOD PHOSPHATE 10 MG/ML 1 ML VIAL IVP SCH (08:44)
[2021-08-02] MEDS: ENOXAPARIN 60 MG/0.6 ML SYRINGE SQ SCH ×2 (08:45→20:34)
[2021-08-02] MEDS: FLUTICASONE 110 MCG INHALER INHALATION SCH ×2 (09:08→19:48)
[2021-08-02] MEDS: ALBUTEROL HFA INHALER INHALATION SCH ×4 (09:08→19:48)
[2021-08-02 10:19] LABS: Basophils % (A) 0 %; Eosinophils % (A) 0 %; HCT 37.6 % (34.0-46.0); HGB 12.3 gm/dL (11.4-16.0); Lymphocytes # (A) 1.2 k/uL (1.0-4.8); Lymphocytes % (A) 15 %; MCH 28.9 pg (25.0-35.0); MCHC 32.6 g/dL (31.0-37.0); MCV 88.6 fL (80.0-100.0); Monocytes # (A) 0.3 k/uL (0-1.0); Monocytes % (A) 4 %; Neutrophils # (A) 6.4 k/uL (1.3-7.7); Neutrophils % (A) 80 %; Platelet Count 355 k/uL (150-450); RBC 4.25 m/uL (3.80-5.40); RDW 14.8 % (11.5-15.5)
[2021-08-02 10:38] LABS: Albumin 3.6 g/dL (3.5-5.0); Calcium 9.3 mg/dL (8.4-10.2); Potassium 4.3 mmol/L (3.5-5.1); Total Bilirubin 0.8 mg/dL (0.2-1.3); Total Protein 6.9 g/dL (6.3-8.2)
[2021-08-02 12:46] LABS: Glucose,Whole Blood 184 mg/dL (75-99)
[2021-08-02] MEDS: BENZONATATE 100 MG CAP PO SCH ×3 (12:52→20:35)
[2021-08-02] MEDS: BARICITINIB 2 MG TABLET PO SCH (12:52)
--- NOTE | 2021-08-02 13:53 | P.PN ---
Subjective Progress Note Date: 08/02/21 Principal diagnosis: Coronavirus associated pneumonia. Acute hypoxic and 40 failure secondary to COVID-19 pneumonia This is a 60-year-old -[place]ub[place] female, known history of asthma and hypertension, morbid obesity, BMI of 39.2, not vaccinated against COVID-19 infection, patient presented to the ER with 1 week history of cough, shortness of breath, low-grade fever, aches and pains, weakness, patient was reevaluated, and she was found to have positive COVID-19 PCR. And she was also found to have diffuse bilateral infiltrates on her chest x-ray consistent with COVID-19 pneumonia. Patient required nonrebreather mask/15 L nasal cannula, and her O2 saturation was in the low 90s. CT of the chest showed no evidence of pulmonary embolism, there was evidence of right sided adenopathy and moderate bilateral pneumonia. CBC was relatively normal except the patient was noted to be lymphopenic, she had elevated d-dimer 1.45. Normal renal profile, elevated liver enzymes with AST of 96 AST of 41 and her blood sugar is 133. Patient was admitted, and this consult was initiated. Patient was reevaluated today on 08/01/21, remains on a nonrebreather mask, O2 saturation 93%. However the patient tells me today that she is feeling better breathing easier, she continues to have intermittent cough, and shortness of breath upon activity. No fever no chills no hemoptysis no chest pain. CBC is relatively normal electrolytes are normal renal profile is normal Progress note dated 08/02/2021. This is a 61-year-old female, who is again seen in room 368. Currently, the patient is on 15 L high flow nasal cannula, and also a nonrebreather mass. The patient's CT angiogram was negative for pulmonary embolism. The patient is not receiving any IV fluids. She tells me that she is feeling a bit better. She has a history of asthma, hypertension, and morbid obesity. She has not been previously vaccinated against coronavirus. White count is 8, hemoglobin 12.3, hematocrit 37.6, and platelet count 355,000. Sodium, potassium, chloride, and CO2, are all normal. Anion gap is normal. BUN is 17 with a creatinine 0.83. Objective - Vital Signs Vital signs: Vital Signs Temp 98.9 F 08/02/21 12:00 Pulse 87 08/02/21 12:00 Resp 20 08/02/21 12:00 BP 157/71 08/02/21 12:00 Pulse Ox 93 L 08/02/21 12:00 Intake & Output 08/01/21 08/02/21 08/02/21 18:59 06:59 18:59 Intake Total 1078 20 120 Balance 1078 20 120 Weight 175.8 kg Intake: IV 20 Invasive Line 3 20 Oral 1078 120 Other: Voiding Method Bedside Commode # Voids 1 1 # Bowel Movements 1 1 - Exam No acute distress, oriented 3. The patient's currently on 15 L high flow nasal cannula, and also a nonrebreather mask. HEENT examination is grossly unremarkable. Neck supple. Full range of motion. No adenopathy thyromegaly or neck vein distention. Cardiovascular examination reveals regular rhythm rate. S1-S2 normal. No S3 or S4. No discernible murmur noted. Heart rate 81 bpm. Heart sounds are distant. Lungs reveal diffuse bilateral rhonchi, and basilar crackles. Breath sounds equal bilaterally. No wheezes. Abdomen soft bowel sounds are heard. No masses or tenderness. Extremities are intact. No cyanosis clubbing or edema. Skin is without rash or lesion. Neurologic examination is brief but nonfocal. - Labs CBC & Chem 7: 08/02/21 09:41 08/02/21 09:41 Labs: Abnormal Lab Results - Last 24 Hours (Table) 08/01/21 08/01/21 08/01/21 Range/Units 08:56 16:36 20:05 Glucose (74-99) mg/dL POC Glucose (mg/dL) 233 H 221 H (75-99) mg/dL Ferritin 1038.0 H (10.0-291.0) ng/mL AST (14-36) U/L 08/02/21 08/02/21 08/02/21 Range/Units 06:06 09:41 12:39 Glucose 193 H (74-99) mg/dL POC Glucose (mg/dL) 110 H 184 H (75-99) mg/dL Ferritin (10.0-291.0) ng/mL AST 37 H (14-36) U/L Assessment and Plan Assessment: Acute hypoxemic respiratory failure secondary to coronavirus associated pneumonia. History of mild intermittent asthma. No evidence of pulmonary embolism on CT angiogram. Benign essential hypertension. Obesity. Plan: Plan dated 08/02/2021. The patient continues on oxygen therapy. She is both on a 15 L high flow nasal cannula, and nonrebreather mask. CT angiogram was negative for pulmonary embolism. It did show bilateral infiltrates. The patient continues on the vitamin cocktail, as well as albuterol inhaler, Decadron, Lovenox, and Baricitinib. We will continue to follow make recommendations were appropriate. Prognosis is guarded. Time with Patient: Less than 30
--- NOTE | 2021-08-02 15:29 | P.PN ---
Subjective Progress Note Date: 08/02/21 This is a 60-year-old pleasant lady, patient of Dr. Gardner. Patient has history of mild intermittent asthma, hypertension, and arm BMI of 39, not vaccinated against COVID-19 infection. She never had any prior history of cold infection either, however she had symptoms of myalgia, achiness,since July 20, there after she got more short-winded, with dyspnea and exertion. Patient denies any sick contact, she lives alone, and with the testing, she is surprised that she had the covid infection, in the emergency room. Emergency room, she was hypoxemic, requiring a nonrebreather mask, 15 L nasal cannula, she presented with O2 sats in the low 90s, x-rays shows significant diffuse bilateral infiltrates, CT of the chest, shows no evidence of pulmonary emboli, there is significant right-sided adenopathy, with bilateral pneumonia. D-dimer was elevated at 1.45, AST and ALT is slightly elevated, with blood sugar of 113, she was given 1 dose of REM does appear in the emergency room she mentioned that her symptoms were only of one week, however with further inquiry, symptoms are past that 10 day michael. Next Patient was admitted, for hypoxemic respiratory failure with consultation to Dr. Lopez, for moderate severe Covid, baricitnib 4 mg daily, Decadron 6 mg IV daily, Lovenox 60 mg every 12 hours, zinc and vitaminC currently pulse ox, 90- 97%, on 15 L mental rebreather mask, T max of 101.4 the kidney, between 20-22 Crestor 8, heart rate in the 70s 08/01: Patient remains on a nonrebreather mask, 15 L, pulse ox between 89-93%, 100% FiO2, no fevers, T-max 98.1, nonlabored breathing, patient is not having any conversational dyspnea, has minimal dyspnea on exertion, transaminitis is better, sed rate is still elevated 83, CRP of 8.1, glucose ranges between 186- 206, while on dexamethasone IV. Patient is reasonably doing much better, not a candidate for the REMdesivir maintained on IV dexamethasone, and baricinib 08/02: Procalcitonin came back low and is azithromycin will be discontinued. Patient is complaining of cough and Tessalon Perles added. She is currently on 15 L high flow nasal cannula with pulse ox of 93%. She's been afebrile, heart rate 87, blood pressure 157/71. Repeat blood work reveals normal CBC. Electrolytes and renal function normal. Capillary blood glucose running between 110 and 184. AST 37 otherwise liver function tests are normal. Review of Systems Constitutional: Reports as per HPI, Reports chills, Reports fatigue, Reports fever, Reports night sweats, Reports poor appetite, Reports sweats Ears, nose, mouth and throat: Reports as per HPI, Denies ant. neck pain, Denies bleeding gums, Denies dental pain, Denies dysphagia, Denies epistaxis, Denies headache, Denies hoarseness, Denies mouth pain, Denies nasal congestion, Denies nasal discharge, Denies neck fullness/pressure, Denies neck lump, Denies nose pain, Denies odynophagia, Denies post-nasal drip, Denies sinus pain, Denies sinus pressure, Denies swelling in mouth, Denies swelling in throat, Denies sore throat, Denies vertigo, Denies voice changes Cardiovascular: Denies chest pain, no lower extremity edema no orthopnea, Reports dyspnea on exertion Respiratory: Reports as per HPI, Reports cough, Reports cough with sputum, Reports dyspnea, Denies pain on inspiration, Denies pleurisy, Denies wheezing Gastrointestinal: Reports as per HPI, Denies abdominal pain, Denies belching, Denies bloating, Denies BRBPR, Denies change in bowel habits, Denies coffee ground emesis, Denies constipation, Denies diarrhea, Denies dyspepsia, Denies early satiety, Denies excessive gas, Denies heartburn, Denies hematemesis, Denies hematochezia, Denies indigestion, Denies jaundice, Denies lactose intolerance, Denies loss of appetite, Denies melena, Denies nausea, Denies vomiting Genitourinary: Reports as per HPI Menstruation: Reports as per HPI Musculoskeletal: Reports as per HPI Integumentary: Reports as per HPI, Denies color changes, Denies foot/leg ulcers Neurological: Reports as per HPI, Denies aphasia, Denies ataxia, Denies change in mentation, Denies head injury, Denies hearing difficulties, Denies lack of coordination, Denies loss of vision, Denies syncope Psychiatric: Reports as per HPI, Reports change in appetite, Denies disorientation, Denies hypersomnia Endocrine: Reports as per HPI Hematologic/Lymphatic: Reports as per HPI, Reports easy bleeding Allergic/Immunologic: Reports as per HPI Assessment and Plan 1. acute hypoxemic respiratory failure secondary to acute COVID infection, symptoms starting 07/20/2021, not a candidate for remdesivir, she received one- time dose of remdesivir in the emergency room on July 31 and will not be continued , has moderate to severe covid with cytokine storm, slight elevation of d-dimer, AST ALT, no LDH is obtain, patient is covered with Lovenox 70 mg subcu every 12 hours, requiring 15 L nasal cannula, on the non-vaccinated individual. Consult with pulmonary critical care, continue on bariticnib dexamethasone IV, and Covid vitamins. Negative PE, by our CTAP protocol 2. Diffuse bilateral pneumonia with right bronchial adenopathy, IV Zithromax 2 mild intermittent asthma on albuterol when necessary, continue on Qvar inhaler 3. BMI of 39 at high risk for deterioration DVT prophylaxis, with full dose anticoagulation Lovenox, 1 mg/kg every 12 hours GI prophylaxis, with Protonix Prognosis guarded Impression and plan of care have been directed as dictated by the signing physician. Dianna Flores nurse practitioner acting as scribe for signing physician. Objective - Vital Signs Vital signs: Vital Signs Temp 99.3 F 08/02/21 08:00 Pulse 80 08/02/21 08:00 Resp 20 08/02/21 08:00 BP 161/89 08/02/21 08:00 Pulse Ox 91 L 08/02/21 08:00 Intake & Output 08/01/21 08/02/21 08/02/21 18:59 06:59 18:59 Intake Total 1078 20 120 Balance 1078 20 120 Weight 175.8 kg Intake: IV 20 Invasive Line 3 20 Oral 1078 120 Other: Voiding Method Bedside Commode # Voids 1 1 # Bowel Movements 1 1 - Labs CBC & Chem 7: 08/02/21 09:41 08/02/21 09:41 Labs: Abnormal Lab Results - Last 24 Hours (Table) 08/01/21 08/01/21 08/01/21 Range/Units 08:56 08:56 11:44 Lymphocytes # 0.9 L (1.0-4.8) k/uL ESR 83 H (0-20) mm/hr BUN 18 H (7-17) mg/dL Glucose 209 H (74-99) mg/dL POC Glucose (mg/dL) 206 H (75-99) mg/dL Ferritin 1038.0 H (10.0-291.0) ng/mL AST 43 H (14-36) U/L C-Reactive Protein 8.1 H (<1.0) mg/dL 08/01/21 08/01/21 08/02/21 Range/Units 16:36 20:05 06:06 Lymphocytes # (1.0-4.8) k/uL ESR (0-20) mm/hr BUN (7-17) mg/dL Glucose (74-99) mg/dL POC Glucose (mg/dL) 233 H 221 H 110 H (75-99) mg/dL Ferritin (10.0-291.0) ng/mL AST (14-36) U/L C-Reactive Protein (<1.0) mg/dL
[2021-08-02 17:01] LABS: Glucose,Whole Blood 257 mg/dL (75-99)
[2021-08-02 20:26] LABS: Glucose,Whole Blood 214 mg/dL (75-99)
[2021-08-03 06:02] LABS: Glucose,Whole Blood 125 mg/dL (75-99)
[2021-08-03] MEDS: INSULIN ASPART (NovoLOG) 100 UNIT/ML VIAL SQ SCH ×4 (06:12→21:31)
[2021-08-03] MEDS: PANTOPRAZOLE 40 MG TABLET PO SCH (06:13)
[2021-08-03 07:52] LABS: Basophils % (A) 0 %; Eosinophils % (A) 0 %; HCT 39.4 % (34.0-46.0); Lymphocytes # (A) 1.2 k/uL (1.0-4.8); Lymphocytes % (A) 14 %; MCH 29.1 pg (25.0-35.0); MCV 88.1 fL (80.0-100.0); Monocytes # (A) 0.4 k/uL (0-1.0); Monocytes % (A) 5 %; Neutrophils # (A) 6.6 k/uL (1.3-7.7); Neutrophils % (A) 79 %; Platelet Count 417 k/uL (150-450); RBC 4.48 m/uL (3.80-5.40); RDW 14.7 % (11.5-15.5); WBC 8.4 k/uL (3.8-10.6)
[2021-08-03 08:04] LABS: ALT 31 U/L (4-34); AST 39 U/L (14-36); African American GFR (CKD) >90 (>60 ml/min/1.73 sqM); Albumin 4.1 g/dL (3.5-5.0); Alkaline Phosphatase 102 U/L (38-126); Anion Gap 8 mmol/L; Blood Urea Nitrogen 17 mg/dL (7-17); Calcium 9.7 mg/dL (8.4-10.2); Carbon Dioxide 32 mmol/L (22-30); Chloride 99 mmol/L (98-107); Glucose 116 mg/dL (74-99); Non-African American GFR(CKD) 88 (>60 ml/min/1.73 sqM); Potassium 4.5 mmol/L (3.5-5.1); Sodium 139 mmol/L (137-145); Total Protein 7.6 g/dL (6.3-8.2)
[2021-08-03] MEDS: ALBUTEROL HFA INHALER INHALATION SCH ×4 (08:12→20:21)
[2021-08-03] MEDS: FLUTICASONE 110 MCG INHALER INHALATION SCH ×2 (08:12→20:21)
[2021-08-03] MEDS: ZINC SULFATE 220 MG CAP PO SCH (08:56)
[2021-08-03] MEDS: CHOLECALCIFEROL 125 MCG (5000 IU) TABLET PO SCH (08:56)
[2021-08-03] MEDS: DEXAMETHASONE SOD PHOSPHATE 10 MG/ML 1 ML VIAL IVP SCH (08:56)
[2021-08-03] MEDS: BENZONATATE 100 MG CAP PO SCH ×3 (08:56→21:32)
[2021-08-03] MEDS: BARICITINIB 2 MG TABLET PO SCH (08:56)
[2021-08-03] MEDS: ASCORBIC ACID 500 MG TAB PO SCH (08:56)
[2021-08-03] MEDS: ENOXAPARIN 60 MG/0.6 ML SYRINGE SQ SCH ×2 (08:56→21:44)
[2021-08-03 12:16] LABS: Glucose,Whole Blood 159 mg/dL (75-99)
--- NOTE | 2021-08-03 13:54 | P.PN ---
Subjective Progress Note Date: 08/03/21 This is a 60-year-old pleasant lady, patient of Dr. Gardner. Patient has history of mild intermittent asthma, hypertension, and arm BMI of 39, not vaccinated against COVID-19 infection. She never had any prior history of cold infection either, however she had symptoms of myalgia, achiness,since July 20, there after she got more short-winded, with dyspnea and exertion. Patient denies any sick contact, she lives alone, and with the testing, she is surprised that she had the covid infection, in the emergency room. Emergency room, she was hypoxemic, requiring a nonrebreather mask, 15 L nasal cannula, she presented with O2 sats in the low 90s, x-rays shows significant diffuse bilateral infiltrates, CT of the chest, shows no evidence of pulmonary emboli, there is significant right-sided adenopathy, with bilateral pneumonia. D-dimer was elevated at 1.45, AST and ALT is slightly elevated, with blood sugar of 113, she was given 1 dose of REM does appear in the emergency room she mentioned that her symptoms were only of one week, however with further inquiry, symptoms are past that 10 day michael. Next Patient was admitted, for hypoxemic respiratory failure with consultation to Dr. Lopez, for moderate severe Covid, baricitnib 4 mg daily, Decadron 6 mg IV daily, Lovenox 60 mg every 12 hours, zinc and vitaminC currently pulse ox, 90- 97%, on 15 L mental rebreather mask, T max of 101.4 the kidney, between 20-22 Crestor 8, heart rate in the 70s 08/01: Patient remains on a nonrebreather mask, 15 L, pulse ox between 89-93%, 100% FiO2, no fevers, T-max 98.1, nonlabored breathing, patient is not having any conversational dyspnea, has minimal dyspnea on exertion, transaminitis is better, sed rate is still elevated 83, CRP of 8.1, glucose ranges between 186- 206, while on dexamethasone IV. Patient is reasonably doing much better, not a candidate for the REMdesivir maintained on IV dexamethasone, and baricinib 08/02: Procalcitonin came back low and is azithromycin will be discontinued. Patient is complaining of cough and Tessalon Perles added. She is currently on 15 L high flow nasal cannula with pulse ox of 93%. She's been afebrile, heart rate 87, blood pressure 157/71. Repeat blood work reveals normal CBC. Electrolytes and renal function normal. Capillary blood glucose running between 110 and 184. AST 37 otherwise liver function tests are normal. 08/03: Patient is seen today on the cardiac stepdown unit. She has been afebrile, heart rate 79, blood pressure 1 4479, pulse ox 93% on high Flonase cannula at 15 L. Repeat blood work reveals CBC is normal. Creatinine 0.74. Blood sugars are running between 159 and 214. AST 39. She is followed by pulmonary medicine. She is encouraged to sit in chair and prone intermittently while in bed. Patient is continued on Baricitinib 4 mg daily for 14 doses, Tessalon Perles 200 mg 3 times daily scheduled, dexamethasone 6 mg IV push daily, Lovenox 60 mg subcu every 12 hours, vitamin supplements. Review of Systems Constitutional: Reports chills, Reports fatigue, Reports fever, Reports night sweats, Reports poor appetite, Reports sweats Ears, nose, mouth and throat: Reports as per HPI, Denies ant. neck pain, Denies bleeding gums, Denies dental pain, Denies dysphagia, Denies epistaxis, Denies headache, Denies hoarseness, Denies mouth pain, Denies nasal congestion, Denies nasal discharge, Denies nose pain, Denies odynophagia, Denies post-nasal drip, Denies sinus pain, Denies sinus pressure, Denies swelling in mouth, Denies swelling in throat, Denies sore throat, Denies vertigo, Denies voice changes Cardiovascular: Denies chest pain, no lower extremity edema no orthopnea, Reports dyspnea on exertion Respiratory: Reports as per HPI, Reports cough, Reports cough with sputum, Reports dyspnea, Denies pain on inspiration, Denies pleurisy, Denies wheezing Gastrointestinal: Reports as per HPI, Denies abdominal pain, Denies belching, Denies bloating, Denies BRBPR, Denies change in bowel habits, Denies coffee ground emesis, Denies constipation, Denies diarrhea, Denies dyspepsia, Denies early satiety, Denies excessive gas, Denies heartburn, Denies hematemesis, Bradly es hematochezia, Denies indigestion, Denies jaundice, Denies lactose intolerance, Denies loss of appetite, Denies melena, Denies nausea, Denies vomiting Genitourinary: Reports as per HPI no dysuria, no frequency, no hematuria Musculoskeletal: Reports as per HPI Integumentary: Reports as per HPI, Denies color changes, Denies foot/leg ulcers Neurological: Reports as per HPI, Denies aphasia, Denies ataxia, Denies change in mentation, Denies head injury, Denies hearing difficulties, Denies lack of c oordination, Denies loss of vision, Denies syncope Psychiatric: Reports as per HPI, Reports change in appetite, Denies disorientation, Denies hypersomnia Endocrine: Reports as per HPI Hematologic/Lymphatic: Reports as per HPI, Reports easy bleeding Allergic/Immunologic: Reports as per HPI Physical Examination Gen: This is a morbidly obese 61-year-old black female. She is resting in bed and appears to be in no acute distress at rest, only on high flow nasal cannula at 15 L. HEENT: Head is atraumatic, normocephalic. Pupils equal, round. Sclerae is anicteric. NECK: Supple. No JVD. No lymphadenopathy. No thyromegaly. LUNGS: Bilateral rhonchi. No intercostal retractions. HEART: Regular rate and rhythm. No murmur. ABDOMEN: Soft. Bowel sounds are present. No masses. No tenderness. EXTREMITIES: No pedal edema. No calf tenderness. NEUROLOGICAL: Patient is awake, alert and oriented x3. Cranial nerves 2 through 12 are grossly intact. Assessment and Plan 1. acute hypoxemic respiratory failure secondary to acute COVID infection, symp toms starting 07/20/2021, not a candidate for remdesivir, she received one-time dose of remdesivir in the emergency room on July 31. Patient is continued on Baricitinib 4 mg daily for 14 doses, Tessalon Perles 200 mg 3 times daily scheduled, dexamethasone 6 mg IV push daily, Lovenox 60 mg subcu every 12 hours, vitamin supplements. Pulmonary consult appreciated. 2. Diffuse bilateral pneumonia with right bronchial adenopathy, secondary to Covid 19. Continue as above. 2 mild intermittent asthma on albuterol when necessary, continue on Qvar inhaler 3. BMI of 58 at high risk for deterioration DVT prophylaxis, with full dose anticoagulation Lovenox, 1 mg/kg every 12 hours GI prophylaxis, with Protonix Prognosis guarded Impression and plan of care have been directed as dictated by the signing physician. Dianna Flores nurse practitioner acting as scribe for signing physician. Objective - Vital Signs Vital signs: Vital Signs Temp 98.0 F 08/03/21 08:37 Pulse 79 08/03/21 08:37 Resp 20 08/03/21 08:37 BP 144/79 08/03/21 08:37 Pulse Ox 93 L 08/03/21 08:37 Intake & Output 08/02/21 08/03/21 08/03/21 18:59 06:59 18:59 Intake Total 520 360 240 Balance 520 360 240 Weight 170 kg Intake: Oral 520 360 240 Other: Voiding Method Bedside Commode Bedside Commode # Voids 4 2 - Labs CBC & Chem 7: 08/03/21 06:32 08/03/21 06:32 Labs: Abnormal Lab Results - Last 24 Hours (Table) 08/02/21 08/02/21 08/02/21 Range/Units 09:41 09:41 12:39 Carbon Dioxide (22-30) mmol/L Glucose 193 H (74-99) mg/dL POC Glucose (mg/dL) 184 H (75-99) mg/dL Hemoglobin A1c 6.7 H (4.0-6.0) % AST 37 H (14-36) U/L 08/02/21 08/02/21 08/03/21 Range/Units 16:59 20:25 06:01 Carbon Dioxide (22-30) mmol/L Glucose (74-99) mg/dL POC Glucose (mg/dL) 257 H 214 H 125 H (75-99) mg/dL Hemoglobin A1c (4.0-6.0) % AST (14-36) U/L 08/03/21 Range/Units 06:32 Carbon Dioxide 32 H (22-30) mmol/L Glucose 116 H (74-99) mg/dL POC Glucose (mg/dL) (75-99) mg/dL Hemoglobin A1c (4.0-6.0) % AST 39 H (14-36) U/L
--- NOTE | 2021-08-03 14:51 | P.PN ---
Subjective Progress Note Date: 08/03/21 Principal diagnosis: Coronavirus associated pneumonia. Acute hypoxic and 40 failure secondary to COVID-19 pneumonia This is a 60-year-old -[place] female, known history of asthma and hypertension, morbid obesity, BMI of 39.2, not vaccinated against COVID-19 infection, patient presented to the ER with 1 week history of cough, shortness of breath, low-grade fever, aches and pains, weakness, patient was reevaluated, and she was found to have positive COVID-19 PCR. And she was also found to have diffuse bilateral infiltrates on her chest x-ray consistent with COVID-19 pneumonia. Patient required nonrebreather mask/15 L nasal cannula, and her O2 saturation was in the low 90s. CT of the chest showed no evidence of pulmonary embolism, there was evidence of right sided adenopathy and moderate bilateral pneumonia. CBC was relatively normal except the patient was noted to be lymphopenic, she had elevated d-dimer 1.45. Normal renal profile, elevated liver enzymes with AST of 96 AST of 41 and her blood sugar is 133. Patient was admitted, and this consult was initiated. Patient was reevaluated today on 08/01/21, remains on a nonrebreather mask, O2 saturation 93%. However the patient tells me today that she is feeling better breathing easier, she continues to have intermittent cough, and shortness of breath upon activity. No fever no chills no hemoptysis no chest pain. CBC is relatively normal electrolytes are normal renal profile is normal Progress note dated 08/02/2021. This is a 61-year-old female, who is again seen in room 368. Currently, the patient is on 15 L high flow nasal cannula, and also a nonrebreather mass. The patient's CT angiogram was negative for pulmonary embolism. The patient is not receiving any IV fluids. She tells me that she is feeling a bit better. She has a history of asthma, hypertension, and morbid obesity. She has not been previously vaccinated against coronavirus. White count is 8, hemoglobin 12.3, hematocrit 37.6, and platelet count 355,000. Sodium, potassium, chloride, and CO2, are all normal. Anion gap is normal. BUN is 17 with a creatinine 0.83. Progress note dated 08/03/2021. 61-year-old female, again seen in room 368. Currently, the patient is on 15 L high flow nasal O2. She's not receiving any IV fluids. She sitting in the chair next to the bed. She feels like she is a bit better today than she was yesterday. CT angiogram was negative for pulmonary embolism. White count 8.4, hemoglobin 13, hematocrit 39.4, platelet count 417,000. Sodium potassium chloride normal. CO2 32, anion gap 8, BUN 17, and creatinine 0.74. Objective - Vital Signs Vital signs: Vital Signs Temp 97.6 F 08/03/21 12:32 Pulse 94 08/03/21 12:32 Resp 18 08/03/21 14:32 BP 170/80 08/03/21 12:32 Pulse Ox 91 L 08/03/21 12:32 Intake & Output 08/02/21 08/03/21 08/03/21 18:59 06:59 18:59 Intake Total 520 360 420 Balance 520 360 420 Weight 170 kg Intake: Oral 520 360 420 Other: Voiding Method Bedside Commode Bedside Commode # Voids 4 2 1 - Exam No acute distress, oriented 3. The patient's currently on 15 L high flow nasal cannula, and also a nonrebreather mask. Saturations are 91%. HEENT examination is grossly unremarkable. Neck supple. Full range of motion. No adenopathy thyromegaly or neck vein distention. Cardiovascular examination reveals regular rhythm rate. S1-S2 normal. No S3 or S4. No discernible murmur noted. Heart rate 94 bpm. Heart sounds are distant. Lungs reveal diffuse bilateral rhonchi, and basilar crackles. Breath sounds equal bilaterally. No wheezes. Abdomen soft bowel sounds are heard. No masses or tenderness. Extremities are intact. No cyanosis clubbing or edema. Skin is without rash or lesion. Neurologic examination is brief but nonfocal. - Labs CBC & Chem 7: 08/03/21 06:32 08/03/21 06:32 Labs: Abnormal Lab Results - Last 24 Hours (Table) 08/02/21 08/02/21 08/02/21 Range/Units 09:41 16:59 20:25 Carbon Dioxide (22-30) mmol/L Glucose (74-99) mg/dL POC Glucose (mg/dL) 257 H 214 H (75-99) mg/dL Hemoglobin A1c 6.7 H (4.0-6.0) % AST (14-36) U/L 08/03/21 08/03/21 08/03/21 Range/Units 06:01 06:32 12:15 Carbon Dioxide 32 H (22-30) mmol/L Glucose 116 H (74-99) mg/dL POC Glucose (mg/dL) 125 H 159 H (75-99) mg/dL Hemoglobin A1c (4.0-6.0) % AST 39 H (14-36) U/L Assessment and Plan Assessment: Acute hypoxemic respiratory failure secondary to coronavirus associated pneumonia. History of mild intermittent asthma. No evidence of pulmonary embolism on CT angiogram. Benign essential hypertension. Obesity. Plan: Plan dated 08/02/2021. The patient continues on oxygen therapy. She is both on a 15 L high flow nasal cannula, and nonrebreather mask. CT angiogram was negative for pulmonary emboli sm. It did show bilateral infiltrates. The patient continues on the vitamin cocktail, as well as albuterol inhaler, Decadron, Lovenox, and Baricitinib. We will continue to follow make recommendations were appropriate. Prognosis is guarded. Plan dated 08/03/2021. The patient continues on 15 L high flow nasal O2. The patient is not using the nonrebreather mass. She feels like her breathing is a bit better. CT angiogram was negative for pulmonary embolism. The patient continues on vitamin C, vitamin D3, and zinc. The patient also continues on the albuterol inhaler, Decadron, Lovenox, and CRISTAL. Prognosis is certainly guarded. We will continue to follow this patient, and make recommendations where appropriate. Time with Patient: Less than 30
[2021-08-03 16:42] LABS: Glucose,Whole Blood 162 mg/dL (75-99)
[2021-08-03 21:31] LABS: Glucose,Whole Blood 154 mg/dL (75-99)
[2021-08-04 05:42] LABS: Glucose,Whole Blood 145 mg/dL (75-99)
[2021-08-04] MEDS: INSULIN ASPART (NovoLOG) 100 UNIT/ML VIAL SQ SCH ×4 (06:59→20:00)
[2021-08-04] MEDS: PANTOPRAZOLE 40 MG TABLET PO SCH (07:00)
[2021-08-04] MEDS: BENZONATATE 100 MG CAP PO SCH ×3 (08:55→20:00)
[2021-08-04] MEDS: ASCORBIC ACID 500 MG TAB PO SCH (08:55)
[2021-08-04] MEDS: ZINC SULFATE 220 MG CAP PO SCH (08:55)
[2021-08-04] MEDS: ALBUTEROL HFA INHALER INHALATION SCH ×4 (08:56→20:01)
[2021-08-04] MEDS: FLUTICASONE 110 MCG INHALER INHALATION SCH ×2 (08:56→20:02)
[2021-08-04] MEDS: DEXAMETHASONE SOD PHOSPHATE 10 MG/ML 1 ML VIAL IVP SCH (08:58)
[2021-08-04] MEDS: CHOLECALCIFEROL 125 MCG (5000 IU) TABLET PO SCH (08:58)
[2021-08-04] MEDS: ENOXAPARIN 60 MG/0.6 ML SYRINGE SQ SCH ×2 (08:59→20:00)
[2021-08-04] MEDS: BARICITINIB 2 MG TABLET PO SCH (09:00)
[2021-08-04 11:56] LABS: Glucose,Whole Blood 185 mg/dL (75-99)
--- NOTE | 2021-08-04 15:19 | P.PN ---
Subjective Progress Note Date: 08/04/21 This is a 60-year-old pleasant lady, patient of Dr. Gardner. Patient has history of mild intermittent asthma, hypertension, and arm BMI of 39, not vaccinated against COVID-19 infection. She never had any prior history of cold infection either, however she had symptoms of myalgia, achiness,since July 20, there after she got more short-winded, with dyspnea and exertion. Patient denies any sick contact, she lives alone, and with the testing, she is surprised that she had the covid infection, in the emergency room. Emergency room, she was hypoxemic, requiring a nonrebreather mask, 15 L nasal cannula, she presented with O2 sats in the low 90s, x-rays shows significant diffuse bilateral infiltrates, CT of the chest, shows no evidence of pulmonary emboli, there is significant right-sided adenopathy, with bilateral pneumonia. D-dimer was elevated at 1.45, AST and ALT is slightly elevated, with blood sugar of 113, she was given 1 dose of REM does appear in the emergency room she mentioned that her symptoms were only of one week, however with further inquiry, symptoms are past that 10 day michael. Next Patient was admitted, for hypoxemic respiratory failure with consultation to Dr. Lopez, for moderate severe Covid, baricitnib 4 mg daily, Decadron 6 mg IV daily, Lovenox 60 mg every 12 hours, zinc and vitaminC currently pulse ox, 90- 97%, on 15 L mental rebreather mask, T max of 101.4 the kidney, between 20-22 Crestor 8, heart rate in the 70s 08/01: Patient remains on a nonrebreather mask, 15 L, pulse ox between 89-93%, 100% FiO2, no fevers, T-max 98.1, nonlabored breathing, patient is not having any conversational dyspnea, has minimal dyspnea on exertion, transaminitis is better, sed rate is still elevated 83, CRP of 8.1, glucose ranges between 186- 206, while on dexamethasone IV. Patient is reasonably doing much better, not a candidate for the REMdesivir maintained on IV dexamethasone, and baricinib 08/02: Procalcitonin came back low and is azithromycin will be discontinued. Patient is complaining of cough and Tessalon Perles added. She is currently on 15 L high flow nasal cannula with pulse ox of 93%. She's been afebrile, heart rate 87, blood pressure 157/71. Repeat blood work reveals normal CBC. Electrolytes and renal function normal. Capillary blood glucose running between 110 and 184. AST 37 otherwise liver function tests are normal. 08/03: Patient is seen today on the cardiac stepdown unit. She has been afebrile, heart rate 79, blood pressure 1 4479, pulse ox 93% on high Flonase cannula at 15 L. Repeat blood work reveals CBC is normal. Creatinine 0.74. Blood sugars are running between 159 and 214. AST 39. She is followed by pulmonary medicine. She is encouraged to sit in chair and prone intermittently while in bed. Patient is continued on Baricitinib 4 mg daily for 14 doses, Tessalon Perles 200 mg 3 times daily scheduled, dexamethasone 6 mg IV push daily, Lovenox 60 mg subcu every 12 hours, vitamin supplements. Patient was seen today on the cardiac stepdown unit, wearing a non rebreather mask. Patient appears comfortable at current oxygen need. She is afebrile pulse rate 78 blood pressure 137/90 with oxygen saturation 100% on 15 L high flow. We'll continue to down titrate titrate the oxygenation need we will continue patient on Baricitinib day 3. Labs obtained ferritin 821 LDH 1231. Ferritin pending showing improvement. Liver enzymes improved. We'll get liver labs tomorrow. Her calcitonin is normal. Continue albuterol as needed Decadron and Lovenox. Continue supplements for COVID pneumonia Review of Systems Constitutional: Reports chills, denies fatigue, Reports fever, Reports night sweats, Reports poor appetite, Reports sweats Ears, nose, mouth and throat: Reports as per HPI, Denies ant. neck pain, Denies bleeding gums, Denies dental pain, Denies dysphagia, Denies epistaxis, Denies headache, Denies hoarseness, Denies mouth pain, Denies nasal congestion, Denies nasal discharge, Denies nose pain, Denies odynophagia, Denies post-nasal drip, Denies sinus pain, Denies sinus pressure, Denies swelling in mouth, Denies swelling in throat, Denies sore throat, Denies vertigo, Denies voice changes Cardiovascular: Denies chest pain, no lower extremity edema no orthopnea, Reports dyspnea on exertion Respiratory: Reports as per HPI, denies cough, denies cough with phlegm, Reports dyspnea, Denies pain on inspiration, Denies pleurisy, Denies wheezing Gastrointestinal: Reports as per HPI, Denies abdominal pain, Denies belching, Denies bloating, Denies BRBPR, Denies change in bowel habits, Denies coffee ground emesis, Denies constipation, Denies diarrhea, Denies dyspepsia, Denies early satiety, Denies excessive gas, Denies heartburn, Denies hematemesis, Denies hematochezia, Denies indigestion, Denies jaundice, Denies lactose intolerance, Denies loss of appetite, Denies melena, Denies nausea, Denies vomiting Genitourinary: Reports as per HPI no dysuria, no frequency, no hematuria Musculoskeletal: Reports as per HPI Integumentary: Reports as per HPI, Denies color changes, Denies foot/leg ulcers Neurological: Reports as per HPI, Denies aphasia, Denies ataxia, Denies change in mentation, Denies head injury, Denies hearing difficulties, Denies lack of coordination, Denies loss of vision, Denies syncope Psychiatric: Reports as per HPI, Reports change in appetite, Denies disorientation, Denies hypersomnia Endocrine: Reports as per HPI Hematologic/Lymphatic: Reports as per HPI, Reports easy bleeding Allergic/Immunologic: Reports as per HPI Physical Examination Gen: This is a morbidly obese 61-year-old black female. She is resting in bed and appears to be in no acute distress at rest, only on high flow nasal cannula at 15 L. HEENT: Head is atraumatic, normocephalic. Pupils equal, round. Sclerae is anicteric. NECK: Supple. No JVD. No lymphadenopathy. No thyromegaly. LUNGS: Bilateral rhonchi. No intercostal retractions. HEART: Regular rate and rhythm. No murmur. ABDOMEN: Soft. Bowel sounds are present. No masses. No tenderness. EXTREMITIES: No pedal edema. No calf tenderness. NEUROLOGICAL: Patient is awake, alert and oriented x3. Cranial nerves 2 through 12 are grossly intact. Assessment and Plan 1. acute hypoxemic respiratory failure secondary to acute COVID infection, symptoms starting 07/20/2021, not a candidate for remdesivir, she received one- time dose of remdesivir in the emergency room on July 31. Patient is continued on Baricitinib 4 mg daily for 14 doses, Day 3 Tessalon Perles 200 mg 3 times daily scheduled, dexamethasone 6 mg IV push daily, Lovenox 60 mg subcu every 12 hours, vitamin supplements. Pulmonary consult appreciated. 2. Diffuse bilateral pneumonia with right bronchial adenopathy, secondary to Covid 19. Continue as above. 2 mild intermittent asthma on albuterol when necessary, continue on Qvar inhaler 3. BMI of 58 at high risk for deterioration DVT prophylaxis, with full dose anticoagulation Lovenox, 1 mg/kg every 12 hours GI prophylaxis, with Protonix Prognosis guarded Objective - Vital Signs Vital signs: Vital Signs Temp 96.4 F L 08/04/21 08:00 Pulse 80 08/04/21 11:13 Resp 20 08/04/21 11:13 BP 137/90 08/04/21 11:13 Pulse Ox 92 L 08/04/21 11:14 Intake & Output 08/03/21 08/04/21 08/04/21 18:59 06:59 18:59 Intake Total 420 360 Output Total 300 Balance 420 -300 360 Weight 176.4 kg Intake: Oral 420 360 Output: Urine 300 Other: Voiding Method Bedside Commode Bedside Commode # Voids 1 # Bowel Movements 1 - Labs CBC & Chem 7: 08/03/21 06:32 08/03/21 06:32 Labs: Abnormal Lab Results - Last 24 Hours (Table) 08/03/21 08/03/21 08/04/21 Range/Units 16:40 21:28 05:09 D-Dimer (<0.60) mg/L FEU POC Glucose (mg/dL) 162 H 154 H 145 H (75-99) mg/dL Ferritin (10.0-291.0) ng/mL Lactate Dehydrogenase (313-618) U/L 08/04/21 08/04/21 08/04/21 Range/Units 07:31 07:31 11:54 D-Dimer 1.71 H (<0.60) mg/L FEU POC Glucose (mg/dL) 185 H (75-99) mg/dL Ferritin 821.0 H (10.0-291.0) ng/mL Lactate Dehydrogenase 1231 H (313-618) U/L
--- NOTE | 2021-08-04 16:30 | P.PN ---
Subjective Progress Note Date: 08/04/21 Principal diagnosis: Coronavirus associated pneumonia. Acute hypoxic and 40 failure secondary to COVID-19 pneumonia This is a 60-year-old -Irish female, known history of asthma and hypertension, morbid obesity, BMI of 39.2, not vaccinated against COVID-19 infection, patient presented to the ER with 1 week history of cough, shortness of breath, low-grade fever, aches and pains, weakness, patient was reevaluated, and she was found to have positive COVID-19 PCR. And she was also found to have diffuse bilateral infiltrates on her chest x-ray consistent with COVID-19 pneumonia. Patient required nonrebreather mask/15 L nasal cannula, and her O2 saturation was in the low 90s. CT of the chest showed no evidence of pulmonary embolism, there was evidence of right sided adenopathy and moderate bilateral pneumonia. CBC was relatively normal except the patient was noted to be lymphopenic, she had elevated d-dimer 1.45. Normal renal profile, elevated liver enzymes with AST of 96 AST of 41 and her blood sugar is 133. Patient was admitted, and this consult was initiated. Patient was reevaluated today on 08/01/21, remains on a nonrebreather mask, O2 saturation 93%. However the patient tells me today that she is feeling better breathing easier, she continues to have intermittent cough, and shortness of breath upon activity. No fever no chills no hemoptysis no chest pain. CBC is relatively normal electrolytes are normal renal profile is normal Progress note dated 08/02/2021. This is a 61-year-old female, who is again seen in room 368. Currently, the patient is on 15 L high flow nasal cannula, and also a nonrebreather mass. The patient's CT angiogram was negative for pulmonary embolism. The patient is not receiving any IV fluids. She tells me that she is feeling a bit better. She has a history of asthma, hypertension, and morbid obesity. She has not been previously vaccinated against coronavirus. White count is 8, hemoglobin 12.3, hematocrit 37.6, and platelet count 355,000. Sodium, potassium, chloride, and CO2, are all normal. Anion gap is normal. BUN is 17 with a creatinine 0.83. Progress note dated 08/03/2021. 61-year-old female, again seen in room 368. Currently, the patient is on 15 L high flow nasal O2. She's not receiving any IV fluids. She sitting in the chair next to the bed. She feels like she is a bit better today than she was yesterday. CT angiogram was negative for pulmonary embolism. White count 8.4, hemoglobin 13, hematocrit 39.4, platelet count 417,000. Sodium potassium chloride normal. CO2 32, anion gap 8, BUN 17, and creatinine 0.74. Progress note dated 08/04/2021. 61-year-old female patient, seen again in room 368. The patient's currently on 15 L high flow nasal O2. She's not receiving any IV fluids. She sitting upright in her chair next to the bed. The patient does feel a bit better today than she did yesterday. She seems to have a pretty good attitude. CT angiogram was performed and was negative for PE. Laboratory data today includes a d-dimer 1.71, ferritin level [id number], and an LDH of 1231. Blood glucose was 185. The patient has not had a chest x-ray for some time, and one was ordered for tomorrow. Objective - Vital Signs Vital signs: Vital Signs Temp 96.4 F L 08/04/21 08:00 Pulse 78 08/04/21 15:12 Resp 20 08/04/21 11:13 BP 110/60 08/04/21 15:12 Pulse Ox 97 08/04/21 15:12 Intake & Output 08/03/21 08/04/21 08/04/21 18:59 06:59 18:59 Intake Total 420 360 Output Total 300 Balance 420 -300 360 Weight 176.4 kg Intake: Oral 420 360 Output: Urine 300 Other: Voiding Method Bedside Commode Bedside Commode # Voids 1 # Bowel Movements 1 - Exam No acute distress, oriented 3. The patient's currently on 15 L high flow nasal cannula. Saturations are 97%. HEENT examination is grossly unremarkable. Neck supple. Full range of motion. No adenopathy thyromegaly or neck vein distention. Cardiovascular examination reveals regular rhythm rate. S1-S2 normal. No S3 or S4. No discernible murmur noted. Heart rate 78 bpm. Heart sounds are distant. Lungs reveal diffuse bilateral rhonchi, and basilar crackles. Breath sounds equal bilaterally. No wheezes. Abdomen soft bowel sounds are heard. No masses or tenderness. Extremities are intact. No cyanosis clubbing or edema. Skin is without rash or lesion. Neurologic examination is brief but nonfocal. - Labs CBC & Chem 7: 08/03/21 06:32 08/03/21 06:32 Labs: Abnormal Lab Results - Last 24 Hours (Table) 08/03/21 08/03/21 08/04/21 Range/Units 16:40 21:28 05:09 D-Dimer (<0.60) mg/L FEU POC Glucose (mg/dL) 162 H 154 H 145 H (75-99) mg/dL Ferritin (10.0-291.0) ng/mL Lactate Dehydrogenase (313-618) U/L 08/04/21 08/04/21 08/04/21 Range/Units 07:31 07:31 11:54 D-Dimer 1.71 H (<0.60) mg/L FEU POC Glucose (mg/dL) 185 H (75-99) mg/dL Ferritin 821.0 H (10.0-291.0) ng/mL Lactate Dehydrogenase 1231 H (313-618) U/L Assessment and Plan Assessment: Acute hypoxemic respiratory failure secondary to coronavirus associated pneumonia. History of mild intermittent asthma. No evidence of pulmonary embolism on CT angiogram. Benign essential hypertension. Obesity. Plan: Plan dated 08/02/2021. The patient continues on oxygen therapy. She is both on a 15 L high flow nasal cannula, and nonrebreather mask. CT angiogram was negative for pulmonary embolism. It did show bilateral infiltrates. The patient continues on the vitamin cocktail, as well as albuterol inhaler, Decadron, Lovenox, and Baricitinib. We will continue to follow make recommendations were appropriate. Prognosis is guarded. Plan dated 08/03/2021. The patient continues on 15 L high flow nasal O2. The patient is not using the nonrebreather mass. She feels like her breathing is a bit better. CT angiogram was negative for pulmonary embolism. The patient continues on vitamin C, vitamin D3, and zinc. The patient also continues on the albuterol inhaler, Decadron, Lovenox, and CRISTAL. Prognosis is certainly guarded. We will continue to follow this patient, and make recommendations where appropriate. Plan dated 08/04/2021. Clinically, the patient appears to be doing better. The patient's on 15 L high flow nasal cannula only. Her saturations are in the mid 90s. She sitting upright in a chair next to the bed. CT angiogram was negative for pulmonary embolism. She remains on vitamin C, vitamin D3, and zinc. In addition, the patient's an albuterol inhaler, Decadron, Lovenox, and CRISTAL. The patient is also on a corticosteroid inhaler. We will continue to follow make recommendations where appropriate. Time with Patient: Less than 30
[2021-08-04 16:40] LABS: Glucose,Whole Blood 253 mg/dL (75-99)
[2021-08-04 19:49] LABS: Glucose,Whole Blood 292 mg/dL (75-99)
[2021-08-05 06:18] LABS: Glucose,Whole Blood 201 mg/dL (75-99)
[2021-08-05] MEDS: INSULIN ASPART (NovoLOG) 100 UNIT/ML VIAL SQ SCH ×4 (06:22→21:11)
[2021-08-05] MEDS: PANTOPRAZOLE 40 MG TABLET PO SCH (06:22)
[2021-08-05] MEDS: ENOXAPARIN 60 MG/0.6 ML SYRINGE SQ SCH ×2 (08:26→21:11)
[2021-08-05] MEDS: CHOLECALCIFEROL 125 MCG (5000 IU) TABLET PO SCH (08:26)
[2021-08-05] MEDS: BENZONATATE 100 MG CAP PO SCH ×3 (08:26→21:11)
[2021-08-05] MEDS: BARICITINIB 2 MG TABLET PO SCH (08:26)
[2021-08-05] MEDS: DEXAMETHASONE SOD PHOSPHATE 10 MG/ML 1 ML VIAL IVP SCH (08:27)
[2021-08-05] MEDS: ASCORBIC ACID 500 MG TAB PO SCH (08:27)
[2021-08-05] MEDS: ZINC SULFATE 220 MG CAP PO SCH (08:27)
--- NOTE | 2021-08-05 08:44 | XR ---
EXAMINATION TYPE: XR chest 1V portable DATE OF EXAM: 08/05/2021 CLINICAL HISTORY: Difficulty breathing , cough, and covid pneumonia progress study. TECHNIQUE: Single AP portable upright view of the chest is obtained. COMPARISON: Chest x-ray and CTA chest from 5 days earlier FINDINGS: Bilateral multifocal and confluent opacities redemonstrated. Cardiac silhouette size is st able and upper limits of normal. Underlying scoliotic curvature with multilevel spurring in the spine redemonstrated. IMPRESSION: Bilateral multifocal and confluent opacities consistent with covid-19 infection redemonst rated. Finding slightly improved bilaterally from 5 days earlier.
[2021-08-05] MEDS: ALBUTEROL HFA INHALER INHALATION SCH ×4 (10:01→21:59)
[2021-08-05] MEDS: FLUTICASONE 110 MCG INHALER INHALATION SCH ×2 (10:01→21:59)
[2021-08-05 11:53] LABS: Glucose,Whole Blood 198 mg/dL (75-99)
--- NOTE | 2021-08-05 15:04 | P.PN ---
Subjective Progress Note Date: 08/05/21 Principal diagnosis: Coronavirus associated pneumonia. Acute hypoxic and 40 failure secondary to COVID-19 pneumonia This is a 60-year-old -[place] female, known history of asthma and hypertension, morbid obesity, BMI of 39.2, not vaccinated against COVID-19 infection, patient presented to the ER with 1 week history of cough, shortness of breath, low-grade fever, aches and pains, weakness, patient was reevaluated, and she was found to have positive COVID-19 PCR. And she was also found to have diffuse bilateral infiltrates on her chest x-ray consistent with COVID-19 pneumonia. Patient required nonrebreather mask/15 L nasal cannula, and her O2 saturation was in the low 90s. CT of the chest showed no evidence of pulmonary embolism, there was evidence of right sided adenopathy and moderate bilateral pneumonia. CBC was relatively normal except the patient was noted to be lymphopenic, she had elevated d-dimer 1.45. Normal renal profile, elevated liver enzymes with AST of 96 AST of 41 and her blood sugar is 133. Patient was admitted, and this consult was initiated. Patient was reevaluated today on 08/01/21, remains on a nonrebreather mask, O2 saturation 93%. However the patient tells me today that she is feeling better breathing easier, she continues to have intermittent cough, and shortness of breath upon activity. No fever no chills no hemoptysis no chest pain. CBC is relatively normal electrolytes are normal renal profile is normal Progress note dated 08/02/2021. This is a 61-year-old female, who is again seen in room 368. Currently, the patient is on 15 L high flow nasal cannula, and also a nonrebreather mass. The patient's CT angiogram was negative for pulmonary embolism. The patient is not receiving any IV fluids. She tells me that she is feeling a bit better. She has a history of asthma, hypertension, and morbid obesity. She has not been previously vaccinated against coronavirus. White count is 8, hemoglobin 12.3, hematocrit 37.6, and platelet count 355,000. Sodium, potassium, chloride, and CO2, are all normal. Anion gap is normal. BUN is 17 with a creatinine 0.83. Progress note dated 08/03/2021. 61-year-old female, again seen in room 368. Currently, the patient is on 15 L high flow nasal O2. She's not receiving any IV fluids. She sitting in the chair next to the bed. She feels like she is a bit better today than she was yesterday. CT angiogram was negative for pulmonary embolism. White count 8.4, hemoglobin 13, hematocrit 39.4, platelet count 417,000. Sodium potassium chloride normal. CO2 32, anion gap 8, BUN 17, and creatinine 0.74. Progress note dated 08/04/2021. 61-year-old female patient, seen again in room 368. The patient's currently on 15 L high flow nasal O2. She's not receiving any IV fluids. She sitting upright in her chair next to the bed. The patient does feel a bit better today than she did yesterday. She seems to have a pretty good attitude. CT angiogram was performed and was negative for PE. Laboratory data today includes a d-dimer 1.71, ferritin level DCCCXXI, and an LDH of 1231. Blood glucose was 185. The patient has not had a chest x-ray for some time, and one was ordered for tomorrow. Progress note dated 08/05/2022. 61-year-old female, who is again seen in room 368. The patient is sitting in chair next to the bed. She is on 13 L high flow nasal cannula, but her saturations are 98%, the respiratory therapist turn down her oxygen to 10 L high flow nasal cannula. The patient is not receiving any IV fluids. She's feeling much better. She's been very positive throughout this hospitalization. She denies any fever or chills. She denies any chest pain or chest discomfort. Clinically, she feels improved. No new labs to report. Chest x-ray shows diffuse bilateral opacities, and is somewhat improved compared to a chest x-ray done 5 days earlier. Objective - Vital Signs Vital signs: Vital Signs Temp 96.6 F L 08/05/21 08:00 Pulse 89 08/05/21 12:00 Resp 18 08/05/21 12:00 BP 138/78 08/05/21 12:00 Pulse Ox 94 L 08/05/21 12:00 Intake & Output 08/04/21 08/05/21 08/05/21 18:59 06:59 18:59 Intake Total 600 237 480 Balance 600 237 480 Intake: Oral 600 237 480 Other: Voiding Method Bedside Commode # Voids 2 1 # Bowel Movements 1 - Exam No acute distress, oriented 3. The patient's currently on 13 L high flow nasal cannula. Saturations are 98%. HEENT examination is grossly unremarkable. Neck supple. Full range of motion. No adenopathy thyromegaly or neck vein distention. Cardiovascular examination reveals regular rhythm rate. S1-S2 normal. No S3 or S4. No discernible murmur noted. Heart rate 89 bpm. Heart sounds are distant. Lungs reveal diffuse bilateral rhonchi, and basilar crackles. Breath sounds equal bilaterally. No wheezes. Breath sounds are somewhat improved. Abdomen soft bowel sounds are heard. No masses or tenderness. Extremities are intact. No cyanosis clubbing or edema. Skin is without rash or lesion. Neurologic examination is brief but nonfocal. - Labs CBC & Chem 7: 08/03/21 06:32 08/03/21 06:32 Labs: Abnormal Lab Results - Last 24 Hours (Table) 08/04/21 08/04/21 08/04/21 Range/Units 07:31 16:35 19:48 POC Glucose (mg/dL) 253 H 292 H (75-99) mg/dL Ferritin 821.0 H (10.0-291.0) ng/mL 08/05/21 08/05/21 Range/Units 06:17 11:41 POC Glucose (mg/dL) 201 H 198 H (75-99) mg/dL Ferritin (10.0-291.0) ng/mL Assessment and Plan Assessment: Acute hypoxemic respiratory failure secondary to coronavirus associated pneumonia. History of mild intermittent asthma. No evidence of pulmonary embolism on CT angiogram. Benign essential hypertension. Obesity. Plan: Plan dated 08/02/2021. The patient continues on oxygen therapy. She is both on a 15 L high flow nasal cannula, and nonrebreather mask. CT angiogram was negative for pulmonary embolism. It did show bilateral infiltrates. The patient continues on the vitamin cocktail, as well as albuterol inhaler, Decadron, Lovenox, and Baricitinib. We will continue to follow make recommendations were appropriate. Prognosis is guarded. Plan dated 08/03/2021. The patient continues on 15 L high flow nasal O2. The patient is not using the nonrebreather mass. She feels like her breathing is a bit better. CT angiogram was negative for pulmonary embolism. The patient continues on vitamin C, vitamin D3, and zinc. The patient also continues on the albuterol inhaler, Decadron, Lovenox, and CRISTAL. Prognosis is certainly guarded. We will continue to follow this patient, and make recommendations where appropriate. Plan dated 08/04/2021. Clinically, the patient appears to be doing better. The patient's on 15 L high flow nasal cannula only. Her saturations are in the mid 90s. She sitting upright in a chair next to the bed. CT angiogram was negative for pulmonary embolism. She remains on vitamin C, vitamin D3, and zinc. In addition, the patient's an albuterol inhaler, Decadron, Lovenox, and CRISTAL. The patient is also on a corticosteroid inhaler. We will continue to follow make recommendations where appropriate. Plan dated 08/05/2021. The patient's O2 was 15 L yesterday, and today is 13 L, and the respiratory therapist was able to titrate her down to 10 L high flow. The patient is not getting any IV fluids. Clinically, she feels much improved. She continues on albuterol inhaler, Decadron, Lovenox, vitamins. She also continues on CRISTAL. We will continue to follow her, and make recommendations where appropriate. Prognosis is guarded though. Time with Patient: Less than 30
[2021-08-05 16:37] LABS: Glucose,Whole Blood 279 mg/dL (75-99)
[2021-08-05 20:31] LABS: Glucose,Whole Blood 237 mg/dL (75-99)
--- NOTE | 2021-08-05 20:33 | P.PN ---
Subjective Progress Note Date: 08/05/21 This is a 60-year-old pleasant lady, patient of Dr. Gardner. Patient has history of mild intermittent asthma, hypertension, and arm BMI of 39, not vaccinated against COVID-19 infection. She never had any prior history of cold infection either, however she had symptoms of myalgia, achiness,since July 20, there after she got more short-winded, with dyspnea and exertion. Patient denies any sick contact, she lives alone, and with the testing, she is surprised that she had the covid infection, in the emergency room. Emergency room, she was hypoxemic, requiring a nonrebreather mask, 15 L nasal cannula, she presented with O2 sats in the low 90s, x-rays shows significant diffuse bilateral infiltrates, CT of the chest, shows no evidence of pulmonary emboli, there is significant right-sided adenopathy, with bilateral pneumonia. D-dimer was elevated at 1.45, AST and ALT is slightly elevated, with blood sugar of 113, she was given 1 dose of REM does appear in the emergency room she mentioned that her symptoms were only of one week, however with further inquiry, symptoms are past that 10 day michael. Next Patient was admitted, for hypoxemic respiratory failure with consultation to Dr. Lopez, for moderate severe Covid, baricitnib 4 mg daily, Decadron 6 mg IV daily, Lovenox 60 mg every 12 hours, zinc and vitaminC currently pulse ox, 90- 97%, on 15 L mental rebreather mask, T max of 101.4 the kidney, between 20-22 Crestor 8, heart rate in the 70s 08/01: Patient remains on a nonrebreather mask, 15 L, pulse ox between 89-93%, 100% FiO2, no fevers, T-max 98.1, nonlabored breathing, patient is not having any conversational dyspnea, has minimal dyspnea on exertion, transaminitis is better, sed rate is still elevated 83, CRP of 8.1, glucose ranges between 186- 206, while on dexamethasone IV. Patient is reasonably doing much better, not a candidate for the REMdesivir maintained on IV dexamethasone, and baricinib 08/02: Procalcitonin came back low and is azithromycin will be discontinued. Patient is complaining of cough and Tessalon Perles added. She is currently on 15 L high flow nasal cannula with pulse ox of 93%. She's been afebrile, heart rate 87, blood pressure 157/71. Repeat blood work reveals normal CBC. Electrolytes and renal function normal. Capillary blood glucose running between 110 and 184. AST 37 otherwise liver function tests are normal. 08/03: Patient is seen today on the cardiac stepdown unit. She has been afebrile, heart rate 79, blood pressure 1 4479, pulse ox 93% on high Flonase cannula at 15 L. Repeat blood work reveals CBC is normal. Creatinine 0.74. Blood sugars are running between 159 and 214. AST 39. She is followed by pulmonary medicine. She is encouraged to sit in chair and prone intermittently while in bed. Patient is continued on Baricitinib 4 mg daily for 14 doses, Tessalon Perles 200 mg 3 times daily scheduled, dexamethasone 6 mg IV push daily, Lovenox 60 mg subcu every 12 hours, vitamin supplements. Patient was seen today on the cardiac stepdown unit, wearing a non rebreather mask. Patient appears comfortable at current oxygen need. She is afebrile pulse rate 78 blood pressure 137/90 with oxygen saturation 100% on 15 L high flow. We'll continue to down titrate titrate the oxygenation need we will continue patient on Baricitinib day 3. Labs obtained ferritin 821 LDH 1231. Ferritin pending showing improvement. Liver enzymes improved. We'll get liver labs tomorrow. Her calcitonin is normal. Continue albuterol as needed Decadron and Lovenox. Continue supplements for COVID pneumonia patient examined at [facility]. patient is sitting comfortably in bed and is less SOB. blood glucose continues to remain elevated on steroid. Inflammatory markers continues to down trend. Patient to continue on baricitinin , dexa, vitamin supplement and therpaaeutic dose of lovemox. CXr reviewed, b/l inf ilterates has improved. Patient oxygen dropped down to 10 L with oxygen saturation maintaining at 90 %. Patient encouraged to change position every 2 hour anf use incentive spirometry 10 times every hour Review of Systems Constitutional: Reports chills, denies fatigue, Reports fever, Reports night sweats, Reports poor appetite, Reports sweats Ears, nose, mouth and throat: Reports as per HPI, Denies ant. neck pain, Denies bleeding gums, Denies dental pain, Denies dysphagia, Denies epistaxis, Denies headache, Denies hoarseness, Denies mouth pain, Denies nasal congestion, Denies nasal discharge, Denies nose pain, Denies odynophagia, Denies post-nasal drip, Denies sinus pain, Denies sinus pressure, Denies swelling in mouth, Denies swelling in throat, Denies sore throat, Denies vertigo, Denies voice changes Cardiovascular: Denies chest pain, no lower extremity edema no orthopnea, Reports dyspnea on exertion Respiratory: Reports as per HPI, denies cough, denies cough with phlegm, Reports dyspnea, Denies pain on inspiration, Denies pleurisy, Denies wheezing Gastrointestinal: Reports as per HPI, Denies abdominal pain, Denies belching, Denies bloating, Denies BRBPR, Denies change in bowel habits, Denies coffee ground emesis, Denies constipation, Denies diarrhea, Denies dyspepsia, Denies early satiety, Denies excessive gas, Denies heartburn, Denies hematemesis, Denies hematochezia, Denies indigestion, Denies jaundice, Denies lactose intolerance, Denies loss of appetite, Denies melena, Denies nausea, Denies vomiting Genitourinary: Reports as per HPI no dysuria, no frequency, no hematuria Musculoskeletal: Reports as per HPI Integumentary: Reports as per HPI, Denies color changes, Denies foot/leg ulcers Neurological: Reports as per HPI, Denies aphasia, Denies ataxia, Denies change in mentation, Denies head injury, Denies hearing difficulties, Denies lack of coordination, Denies loss of vision, Denies syncope Psychiatric: Reports as per HPI, Reports change in appetite, Denies disorientation, Denies hypersomnia Endocrine: Reports as per HPI Hematologic/Lymphatic: Reports as per HPI, Reports easy bleeding Allergic/Immunologic: Reports as per HPI Physical Examination Gen: This is a morbidly obese 61-year-old black female. She is resting in bed and appears to be in no acute distress at rest, only on high flow nasal cannula at 15 L. HEENT: Head is atraumatic, normocephalic. Pupils equal, round. Sclerae is anicteric. NECK: Supple. No JVD. No lymphadenopathy. No thyromegaly. LUNGS: Bilateral rhonchi. No intercostal retractions. HEART: Regular rate and rhythm. No murmur. ABDOMEN: Soft. Bowel sounds are present. No masses. No tenderness. EXTREMITIES: No pedal edema. No calf tenderness. NEUROLOGICAL: Patient is awake, alert and oriented x3. Cranial nerves 2 through 12 are grossly intact. Assessment and Plan acute hypoxemic respiratory failure secondary to acute COVID infection, symptoms starting 07/20/2021, not a candidate for remdesivir, she received one-time dose of remdesivir in the emergency room on July 31. Patient is continued on Baricitinib 4 mg daily for 14 doses, Day 4 Tessalon Perles 200 mg 3 times daily scheduled, dexamethasone 6 mg IV push daily, Lovenox 60 mg subcu every 12 hours, vitamin supplements. Pulmonary consult appreciated. Diffuse bilateral pneumonia with right bronchial adenopathy, secondary to Covid 19. Continue as above. Tyoe 2 DM , hba1c 6.8. labtus initiated at 5 units at bedtime, insulin sliding scale ordered Mild intermittent asthma on albuterol when necessary, continue on Qvar inhaler BMI of 58 at high risk for deterioration DVT prophylaxis, with full dose anticoagulation Lovenox, 1 mg/kg every 12 hours GI prophylaxis, with Protonix Prognosis guarded Objective - Vital Signs Vital signs: Vital Signs Temp 97.1 F L 08/05/21 03:43 Pulse 94 08/05/21 03:43 Resp 20 08/05/21 03:43 BP 158/79 08/05/21 03:43 Pulse Ox 94 L 08/05/21 03:43 Intake & Output 08/04/21 08/04/21 08/05/21 06:59 18:59 06:59 Intake Total 600 237 Output Total 300 Balance -300 600 237 Weight 176.4 kg Intake: Oral 600 237 Output: Urine 300 Other: Voiding Method Bedside Commode Bedside Commode # Voids 2 1 # Bowel Movements 1 1 - Labs CBC & Chem 7: 08/03/21 06:32 08/03/21 06:32 Labs: Abnormal Lab Results - Last 24 Hours (Table) 08/04/21 08/04/21 08/04/21 Range/Units 07:31 07:31 11:54 D-Dimer 1.71 H (<0.60) mg/L FEU POC Glucose (mg/dL) 185 H (75-99) mg/dL Ferritin 821.0 H (10.0-291.0) ng/mL Lactate Dehydrogenase 1231 H (313-618) U/L 08/04/21 08/04/21 08/05/21 Range/Units 16:35 19:48 06:17 D-Dimer (<0.60) mg/L FEU POC Glucose (mg/dL) 253 H 292 H 201 H (75-99) mg/dL Ferritin (10.0-291.0) ng/mL Lactate Dehydrogenase (313-618) U/L
[2021-08-05] MEDS: INSULIN DETEMIR (LEVEMIR) 100 UNIT/ML SYR SQ SCH (21:11)
[2021-08-06 00:48] LABS: Albumin 4.4 g/dL (3.5-5.0); Calcium 11.6 mg/dL (8.4-10.2); Total Bilirubin 0.9 mg/dL (0.2-1.3); Total Protein 8.3 g/dL (6.3-8.2)
[2021-08-06 06:57] LABS: Glucose,Whole Blood 165 mg/dL (75-99)
[2021-08-06] MEDS: INSULIN ASPART (NovoLOG) 100 UNIT/ML VIAL SQ SCH ×4 (07:00→21:09)
[2021-08-06] MEDS: PANTOPRAZOLE 40 MG TABLET PO SCH (07:00)
[2021-08-06 07:28] LABS: Basophils % (A) 0 %; Eosinophils % (A) 0 %; HCT 39.5 % (34.0-46.0); HGB 12.9 gm/dL (11.4-16.0); Lymphocytes # (A) 1.2 k/uL (1.0-4.8); Lymphocytes % (A) 14 %; MCH 28.8 pg (25.0-35.0); MCHC 32.6 g/dL (31.0-37.0); MCV 88.4 fL (80.0-100.0); Mean Platelet Volume 8.1; Monocytes # (A) 0.4 k/uL (0-1.0); Monocytes % (A) 4 %; Neutrophils # (A) 6.9 k/uL (1.3-7.7); Neutrophils % (A) 79 %; Platelet Count 498 k/uL (150-450); RBC 4.47 m/uL (3.80-5.40); RDW 14.6 % (11.5-15.5); WBC 8.7 k/uL (3.8-10.6)
[2021-08-06] MEDS: ALBUTEROL HFA INHALER INHALATION SCH ×4 (07:42→22:00)
[2021-08-06] MEDS: FLUTICASONE 110 MCG INHALER INHALATION SCH ×2 (07:42→22:00)
[2021-08-06 07:52] LABS: Potassium 4.8 mmol/L (3.5-5.1)
[2021-08-06 07:55] LABS: Calcium 10.9 mg/dL (8.4-10.2); Total Bilirubin 0.7 mg/dL (0.2-1.3); Total Protein 7.7 g/dL (6.3-8.2)
[2021-08-06] MEDS: ENOXAPARIN 60 MG/0.6 ML SYRINGE SQ SCH (08:27)
[2021-08-06] MEDS: ZINC SULFATE 220 MG CAP PO SCH (08:28)
[2021-08-06] MEDS: CHOLECALCIFEROL 125 MCG (5000 IU) TABLET PO SCH (08:28)
[2021-08-06] MEDS: BENZONATATE 100 MG CAP PO SCH ×3 (08:28→21:08)
[2021-08-06] MEDS: INSULIN DETEMIR (LEVEMIR) 100 UNIT/ML SYR SQ SCH ×2 (08:28→21:09)
[2021-08-06] MEDS: BARICITINIB 2 MG TABLET PO SCH (08:28)
[2021-08-06] MEDS: ASCORBIC ACID 500 MG TAB PO SCH (08:28)
[2021-08-06] MEDS: DEXAMETHASONE SOD PHOSPHATE 10 MG/ML 1 ML VIAL IVP SCH (08:29)
[2021-08-06 08:44] VITALS: BMI 60.7
[2021-08-06 11:43] LABS: Glucose,Whole Blood 173 mg/dL (75-99)
[2021-08-06 16:41] LABS: Glucose,Whole Blood 229 mg/dL (75-99)
--- NOTE | 2021-08-06 17:13 | P.PN ---
Subjective Progress Note Date: 08/06/21 This is a 60-year-old pleasant lady, patient of Dr. Gardner. Patient has history of mild intermittent asthma, hypertension, and arm BMI of 39, not vaccinated against COVID-19 infection. She never had any prior history of cold infection either, however she had symptoms of myalgia, achiness,since July 20, there after she got more short-winded, with dyspnea and exertion. Patient denies any sick contact, she lives alone, and with the testing, she is surprised that she had the covid infection, in the emergency room. Emergency room, she was hypoxemic, requiring a nonrebreather mask, 15 L nasal cannula, she presented with O2 sats in the low 90s, x-rays shows significant diffuse bilateral infiltrates, CT of the chest, shows no evidence of pulmonary emboli, there is significant right-sided adenopathy, with bilateral pneumonia. D-dimer was elevated at 1.45, AST and ALT is slightly elevated, with blood sugar of 113, she was given 1 dose of REM does appear in the emergency room she mentioned that her symptoms were only of one week, however with further inquiry, symptoms are past that 10 day michael. Next Patient was admitted, for hypoxemic respiratory failure with consultation to Dr. Lopez, for moderate severe Covid, baricitnib 4 mg daily, Decadron 6 mg IV daily, Lovenox 60 mg every 12 hours, zinc and vitaminC currently pulse ox, 90- 97%, on 15 L mental rebreather mask, T max of 101.4 the kidney, between 20-22 Crestor 8, heart rate in the 70s 08/01: Patient remains on a nonrebreather mask, 15 L, pulse ox between 89-93%, 100% FiO2, no fevers, T-max 98.1, nonlabored breathing, patient is not having any conversational dyspnea, has minimal dyspnea on exertion, transaminitis is better, sed rate is still elevated 83, CRP of 8.1, glucose ranges between 186- 206, while on dexamethasone IV. Patient is reasonably doing much better, not a candidate for the REMdesivir maintained on IV dexamethasone, and baricinib 08/02: Procalcitonin came back low and is azithromycin will be discontinued. Patient is complaining of cough and Tessalon Perles added. She is currently on 15 L high flow nasal cannula with pulse ox of 93%. She's been afebrile, heart rate 87, blood pressure 157/71. Repeat blood work reveals normal CBC. Electrolytes and renal function normal. Capillary blood glucose running between 110 and 184. AST 37 otherwise liver function tests are normal. 08/03: Patient is seen today on the cardiac stepdown unit. She has been afebrile, heart rate 79, blood pressure 1 4479, pulse ox 93% on high Flonase cannula at 15 L. Repeat blood work reveals CBC is normal. Creatinine 0.74. Blood sugars are running between 159 and 214. AST 39. She is followed by pulmonary medicine. She is encouraged to sit in chair and prone intermittently while in bed. Patient is continued on Baricitinib 4 mg daily for 14 doses, Tessalon Perles 200 mg 3 times daily scheduled, dexamethasone 6 mg IV push daily, Lovenox 60 mg subcu every 12 hours, vitamin supplements. Patient was seen today on the cardiac stepdown unit, wearing a non rebreather mask. Patient appears comfortable at current oxygen need. She is afebrile pulse rate 78 blood pressure 137/90 with oxygen saturation 100% on 15 L high flow. We'll continue to down titrate titrate the oxygenation need we will continue patient on Baricitinib day 3. Labs obtained ferritin 821 LDH 1231. Ferritin pending showing improvement. Liver enzymes improved. We'll get liver labs tomorrow. Her calcitonin is normal. Continue albuterol as needed Decadron and Lovenox. Continue supplements for COVID pneumonia patient examined at [facility]. patient is sitting comfortably in bed and is less SOB. blood glucose continues to remain elevated on steroid. Inflammatory markers continues to down trend. Patient to continue on baricitinin , dexa, vitamin supplement and therpaaeutic dose of lovemox. CXr reviewed, b/l inf ilterates has improved. Patient oxygen dropped down to 10 L with oxygen saturation maintaining at 90 %. Patient encouraged to change position every 2 hour anf use incentive spirometry 10 times every hour 08/06 Patient is doing relatively well she is examined bedside is comfortable denies any shortness of breath, cough or abdominal pain, dizziness. Patient is ambulating in her room without any major discomfort. Patient is currently on 98% on 5 L of oxygen.Continue every 2 hours change in position and incentive spirometry 10 times an hour. Continue Lovenox, dexamethasone vitamin supplemen tation. Patient is on day 5 of baricitinib Review of Systems Constitutional: Reports chills, denies fatigue, Reports fever, Reports night sweats, Reports poor appetite, Reports sweats Ears, nose, mouth and throat: Reports as per HPI, Denies ant. neck pain, Denies bleeding gums, Denies dental pain, Denies dysphagia, Denies epistaxis, Denies headache, Denies hoarseness, Denies mouth pain, Denies nasal congestion, Denies nasal discharge, Denies nose pain, Denies odynophagia, Denies post-nasal drip, Denies sinus pain, Denies sinus pressure, Denies swelling in mouth, Denies swelling in throat, Denies sore throat, Denies vertigo, Denies voice changes Cardiovascular: Denies chest pain, no lower extremity edema no orthopnea, Reports dyspnea on exertion Respiratory: Reports as per HPI, denies cough, denies cough with phlegm, Reports dyspnea, Denies pain on inspiration, Denies pleurisy, Denies wheezing Gastrointestinal: Reports as per HPI, Denies abdominal pain, Denies belching, Denies bloating, Denies BRBPR, Denies change in bowel habits, Denies coffee ground emesis, Denies constipation, Denies diarrhea, Denies dyspepsia, Denies early satiety, Denies excessive gas, Denies heartburn, Denies hematemesis, Denies hematochezia, Denies indigestion, Denies jaundice, Denies lactose intolerance, Denies loss of appetite, Denies melena, Denies nausea, Denies vomiting Genitourinary: Reports as per HPI no dysuria, no frequency, no hematuria Musculoskeletal: Reports as per HPI Integumentary: Reports as per HPI, Denies color changes, Denies foot/leg ulcers Neurological: Reports as per HPI, Denies aphasia, Denies ataxia, Denies change in mentation, Denies head injury, Denies hearing difficulties, Denies lack of coordination, Denies loss of vision, Denies syncope Psychiatric: Reports as per HPI, Reports change in appetite, Denies disorientation, Denies hypersomnia Endocrine: Reports as per HPI Hematologic/Lymphatic: Reports as per HPI, Reports easy bleeding Allergic/Immunologic: Reports as per HPI Physical Examination Gen: This is a morbidly obese 61-year-old black female. She is resting in bed and appears to be in no acute distress at rest, only on high flow nasal cannula at 15 L. HEENT: Head is atraumatic, normocephalic. Pupils equal, round. Sclerae is anicteric. NECK: Supple. No JVD. No lymphadenopathy. No thyromegaly. LUNGS: Bilateral rhonchi. No intercostal retractions. HEART: Regular rate and rhythm. No murmur. ABDOMEN: Soft. Bowel sounds are present. No masses. No tenderness. EXTREMITIES: No pedal edema. No calf tenderness. NEUROLOGICAL: Patient is awake, alert and oriented x3. Cranial nerves 2 through 12 are grossly intact. Assessment and Plan acute hypoxemic respiratory failure secondary to acute COVID infection, symptoms starting 07/20/2021, not a candidate for remdesivir, she received one- time dose of remdesivir in the emergency room on July 31. Patient is continued on Baricitinib 4 mg daily for 14 doses, Day 5 Tessalon Perles 200 mg 3 times daily scheduled, dexamethasone 6 mg IV push daily, Lovenox 60 mg subcu every 12 hours, vitamin supplements. Pulmonary consult appreciated. Diffuse bilateral pneumonia with right bronchial adenopathy, secondary to Covid 19. Continue as above. Tyoe 2 DM , hba1c 6.8. labtus 5 units at bedtime, insulin sliding scale ordered Mild intermittent asthma on albuterol when necessary, continue on Qvar inhaler BMI of 58 at high risk for deterioration DVT prophylaxis, with full dose anticoagulation Lovenox, 1 mg/kg every 12 hours GI prophylaxis, with Protonix Prognosis guarded Objective - Vital Signs Vital signs: Vital Signs Temp 98.1 F 08/06/21 04:00 Pulse 89 08/06/21 08:30 Resp 16 08/06/21 08:30 BP 122/71 08/06/21 08:30 Pulse Ox 94 L 08/06/21 08:30 Intake & Output 08/05/21 08/06/21 08/06/21 18:59 06:59 18:59 Intake Total 780 1200 240 Output Total 600 Balance 780 600 240 Weight 176.1 kg 176.1 kg Intake: Oral 780 1200 240 Output: Urine 600 Other: Voiding Method Bedside Commode # Voids 2 4 1 # Bowel Movements 1 1 - Labs CBC & Chem 7: 08/06/21 07:16 08/06/21 07:16 Labs: Abnormal Lab Results - Last 24 Hours (Table) 08/05/21 08/05/21 08/05/21 Range/Units 11:41 16:34 20:10 Plt Count (150-450) k/uL BUN (7-17) mg/dL Glucose (74-99) mg/dL POC Glucose (mg/dL) 198 H 279 H 237 H (75-99) mg/dL Calcium (8.4-10.2) mg/dL AST (14-36) U/L ALT (4-34) U/L Total Protein (6.3-8.2) g/dL 08/05/21 08/06/21 08/06/21 Range/Units 23:59 06:54 07:16 Plt Count (150-450) k/uL BUN 26 H 23 H (7-17) mg/dL Glucose 141 H 154 H (74-99) mg/dL POC Glucose (mg/dL) 165 H (75-99) mg/dL Calcium 11.6 H 10.9 H (8.4-10.2) mg/dL AST 46 H (14-36) U/L ALT 35 H (4-34) U/L Total Protein 8.3 H (6.3-8.2) g/dL 08/06/21 Range/Units 07:16 Plt Count 498 H (150-450) k/uL BUN (7-17) mg/dL Glucose (74-99) mg/dL POC Glucose (mg/dL) (75-99) mg/dL Calcium (8.4-10.2) mg/dL AST (14-36) U/L ALT (4-34) U/L Total Protein (6.3-8.2) g/dL
--- NOTE | 2021-08-06 18:41 | P.PN ---
Subjective Progress Note Date: 08/06/21 Principal diagnosis: Coronavirus associated pneumonia. Acute hypoxic and 40 failure secondary to COVID-19 pneumonia This is a 60-year-old -Citizen Of [place] female, known history of asthma and hypertension, morbid obesity, BMI of 39.2, not vaccinated against COVID-19 infection, patient presented to the ER with 1 week history of cough, shortness of breath, low-grade fever, aches and pains, weakness, patient was reevaluated, and she was found to have positive COVID-19 PCR. And she was also found to have diffuse bilateral infiltrates on her chest x-ray consistent with COVID-19 pneumonia. Patient required nonrebreather mask/15 L nasal cannula, and her O2 saturation was in the low 90s. CT of the chest showed no evidence of pulmonary embolism, there was evidence of right sided adenopathy and moderate bilateral pneumonia. CBC was relatively normal except the patient was noted to be lymphopenic, she had elevated d-dimer 1.45. Normal renal profile, elevated liver enzymes with AST of 96 AST of 41 and her blood sugar is 133. Patient was admitted, and this consult was initiated. Patient was reevaluated today on 08/01/21, remains on a nonrebreather mask, O2 saturation 93%. However the patient tells me today that she is feeling better breathing easier, she continues to have intermittent cough, and shortness of breath upon activity. No fever no chills no hemoptysis no chest pain. CBC is relatively normal electrolytes are normal renal profile is normal Progress note dated 08/02/2021. This is a 61-year-old female, who is again seen in room 368. Currently, the patient is on 15 L high flow nasal cannula, and also a nonrebreather mass. The patient's CT angiogram was negative for pulmonary embolism. The patient is not receiving any IV fluids. She tells me that she is feeling a bit better. She has a history of asthma, hypertension, and morbid obesity. She has not been previously vaccinated against coronavirus. White count is 8, hemoglobin 12.3, hematocrit 37.6, and platelet count 355,000. Sodium, potassium, chloride, and CO2, are all normal. Anion gap is normal. BUN is 17 with a creatinine 0.83. Progress note dated 08/03/2021. 61-year-old female, again seen in room 368. Currently, the patient is on 15 L high flow nasal O2. She's not receiving any IV fluids. She sitting in the chair next to the bed. She feels like she is a bit better today than she was yesterday. CT angiogram was negative for pulmonary embolism. White count 8.4, hemoglobin 13, hematocrit 39.4, platelet count 417,000. Sodium potassium chloride normal. CO2 32, anion gap 8, BUN 17, and creatinine 0.74. Progress note dated 08/04/2021. 61-year-old female patient, seen again in room 368. The patient's currently on 15 L high flow nasal O2. She's not receiving any IV fluids. She sitting upright in her chair next to the bed. The patient does feel a bit better today than she did yesterday. She seems to have a pretty good attitude. CT angiogram was performed and was negative for PE. Laboratory data today includes a d-dimer 1.71, ferritin level [id number], and an LDH of 1231. Blood glucose was 185. The patient has not had a chest x-ray for some time, and one was ordered for tomorrow. Progress note dated 08/05/2022. 61-year-old female, who is again seen in room 368. The patient is sitting in chair next to the bed. She is on 13 L high flow nasal cannula, but her saturations are 98%, the respiratory therapist turn down her oxygen to 10 L high flow nasal cannula. The patient is not receiving any IV fluids. She's feeling much better. She's been very positive throughout this hospitalization. She denies any fever or chills. She denies any chest pain or chest discomfort. Clinically, she feels improved. No new labs to report. Chest x-ray shows diffuse bilateral opacities, and is somewhat improved compared to a chest x-ray done 5 days earlier. Progress note dated 08/06/2021. 61-year-old female again seen in room 368. The patient is currently on 3 L nasal cannula. She is doing much better. She is hoping to be discharged soon. The patient states that even when she walks, she does not get short of breath. She sitting the chair next to the bed. She is a very positive attitude. She continues on appropriate medications including vitamin C, vitamin D3, and zinc. In addition, she is on Lovenox, and Decadron. She is also on CRISTAL. White count is 8.7, he will been 12.9, hematocrit 39.5, and platelet count is 498,000. So dium potassium chloride CO2 are all normal. Anion gap 9. BUN 23, and creatinine 0.89. Calcium is 10.9. Chest x-ray dated August 05 was reviewed. Objective - Vital Signs Vital signs: Vital Signs Temp 98.1 F 08/06/21 04:00 Pulse 82 08/06/21 15:37 Resp 18 08/06/21 11:52 BP 128/63 08/06/21 15:37 Pulse Ox 96 08/06/21 16:00 Intake & Output 08/05/21 08/06/21 08/06/21 18:59 06:59 18:59 Intake Total 780 1200 600 Output Total 600 700 Balance 780 600 -100 Weight 176.1 kg 176.1 kg Intake: Oral 780 1200 600 Output: Urine 600 700 Other: Voiding Method Bedside Commode # Voids 2 4 1 # Bowel Movements 1 1 1 - Exam No acute distress, oriented 3. The patient's currently on 3 L high flow nasal cannula. Saturations are 96%. HEENT examination is grossly unremarkable. Neck supple. Full range of motion. No adenopathy thyromegaly or neck vein distention. Cardiovascular examination reveals regular rhythm rate. S1-S2 normal. No S3 or S4. No discernible murmur noted. Heart rate 82 bpm. Heart sounds are distant. Lungs reveal diffuse bilateral rhonchi, and basilar crackles. Breath sounds eq ual bilaterally. No wheezes. Breath sounds are somewhat improved. Abdomen soft bowel sounds are heard. No masses or tenderness. Extremities are intact. No cyanosis clubbing or edema. Skin is without rash or lesion. Neurologic examination is brief but nonfocal. - Labs CBC & Chem 7: 08/06/21 07:16 08/06/21 07:16 Labs: Abnormal Lab Results - Last 24 Hours (Table) 08/05/21 08/05/21 08/06/21 Range/Units 20:10 23:59 06:54 Plt Count (150-450) k/uL BUN 26 H (7-17) mg/dL Glucose 141 H (74-99) mg/dL POC Glucose (mg/dL) 237 H 165 H (75-99) mg/dL Calcium 11.6 H (8.4-10.2) mg/dL AST 46 H (14-36) U/L ALT 35 H (4-34) U/L Total Protein 8.3 H (6.3-8.2) g/dL 08/06/21 08/06/21 08/06/21 Range/Units 07:16 07:16 11:39 Plt Count 498 H (150-450) k/uL BUN 23 H (7-17) mg/dL Glucose 154 H (74-99) mg/dL POC Glucose (mg/dL) 173 H (75-99) mg/dL Calcium 10.9 H (8.4-10.2) mg/dL AST (14-36) U/L ALT (4-34) U/L Total Protein (6.3-8.2) g/dL 08/06/21 Range/Units 16:39 Plt Count (150-450) k/uL BUN (7-17) mg/dL Glucose (74-99) mg/dL POC Glucose (mg/dL) 229 H (75-99) mg/dL Calcium (8.4-10.2) mg/dL AST (14-36) U/L ALT (4-34) U/L Total Protein (6.3-8.2) g/dL Assessment and Plan Assessment: Acute hypoxemic respiratory failure secondary to coronavirus associated pneumonia. History of mild intermittent asthma. No evidence of pulmonary embolism on CT angiogram. Benign essential hypertension. Obesity. Plan: Plan dated 08/02/2021. The patient continues on oxygen therapy. She is both on a 15 L high flow nasal cannula, and nonrebreather mask. CT angiogram was negative for pulmonary embolism. It did show bilateral infiltrates. The patient continues on the vitamin cocktail, as well as albuterol inhaler, Decadron, Lovenox, and Baricitinib. We will continue to follow make recommendations were appropriate. Prognosis is guarded. Plan dated 08/03/2021. The patient continues on 15 L high flow nasal O2. The patient is not using the nonrebreather mass. She feels like her breathing is a bit better. CT angiogram was negative for pulmonary embolism. The patient continues on vitamin C, vitamin D3, and zinc. The patient also continues on the albuterol inhaler, Decadron, Lovenox, and CRISTAL. Prognosis is certainly guarded. We will continue to follow this patient, and make recommendations where appropriate. Plan dated 08/04/2021. Clinically, the patient appears to be doing better. The patient's on 15 L high flow nasal cannula only. Her saturations are in the mid 90s. She sitting upright in a chair next to the bed. CT angiogram was negative for pulmonary embolism. She remains on vitamin C, vitamin D3, and zinc. In addition, the patient's an albuterol inhaler, Decadron, Lovenox, and CRISTAL. The patient is also on a corticosteroid inhaler. We will continue to follow make recommendations where appropriate. Plan dated 08/05/2021. The patient's O2 was 15 L yesterday, and today is 13 L, and the respiratory therapist was able to titrate her down to 10 L high flow. The patient is not getting any IV fluids. Clinically, she feels much improved. She continues on albuterol inhaler, Decadron, Lovenox, vitamins. She also continues on CRISTAL. We will continue to follow her, and make recommendations where appropriate. Pro gnosis is guarded though. Plan dated 08/06/2021. Currently, the patient has been titrated down to 3 L nasal cannula. The patient was on 10 L yesterday. She remains on Decadron, Lovenox, and vitamins. She is also getting the monoclonal antibody against interleukin-6. She feels much improved. CT angiogram was negative for pulmonary embolism. We will continue to follow. Possible discharge in the next 24-48 hours. The Lovenox dose was decreased to 40 mg subcu daily. Time with Patient: Less than 30
[2021-08-06 20:41] LABS: Glucose,Whole Blood 246 mg/dL (75-99)
[2021-08-06] MEDS: ACETAMINOPHEN TAB 325 MG TAB PO PRN (21:08)
[2021-08-07 06:30] LABS: Glucose,Whole Blood 113 mg/dL (75-99)
[2021-08-07] MEDS: INSULIN ASPART (NovoLOG) 100 UNIT/ML VIAL SQ SCH ×4 (06:38→21:22)
[2021-08-07] MEDS: PANTOPRAZOLE 40 MG TABLET PO SCH (06:45)
[2021-08-07] MEDS: ALBUTEROL HFA INHALER INHALATION SCH ×4 (08:44→19:42)
[2021-08-07] MEDS: FLUTICASONE 110 MCG INHALER INHALATION SCH ×2 (08:45→19:42)
[2021-08-07 09:38] LABS: Basophils % (A) 0 %; Eosinophils # (A) 0.1 k/uL (0-0.7); Eosinophils % (A) 1 %; HCT 38.5 % (34.0-46.0); HGB 12.9 gm/dL (11.4-16.0); Lymphocytes # (A) 1.5 k/uL (1.0-4.8); Lymphocytes % (A) 17 %; MCHC 33.6 g/dL (31.0-37.0); MCV 86.5 fL (80.0-100.0); Mean Platelet Volume 7.8; Monocytes # (A) 0.5 k/uL (0-1.0); Monocytes % (A) 5 %; Neutrophils # (A) 6.6 k/uL (1.3-7.7); Neutrophils % (A) 75 %; Platelet Count 476 k/uL (150-450); RBC 4.45 m/uL (3.80-5.40); RDW 14.6 % (11.5-15.5); WBC 8.8 k/uL (3.8-10.6)
[2021-08-07 09:44] LABS: Albumin 4.3 g/dL (3.5-5.0); Calcium 10.6 mg/dL (8.4-10.2); Potassium 4.9 mmol/L (3.5-5.1); Total Bilirubin 0.7 mg/dL (0.2-1.3); Total Protein 7.9 g/dL (6.3-8.2)
[2021-08-07] MEDS: ENOXAPARIN 40 MG/0.4 ML SYRINGE SQ SCH (10:19)
[2021-08-07] MEDS: INSULIN DETEMIR (LEVEMIR) 100 UNIT/ML SYR SQ SCH ×2 (10:19→21:23)
[2021-08-07] MEDS: ASCORBIC ACID 500 MG TAB PO SCH (10:19)
[2021-08-07] MEDS: BENZONATATE 100 MG CAP PO SCH ×3 (10:19→21:23)
[2021-08-07] MEDS: ZINC SULFATE 220 MG CAP PO SCH (10:19)
[2021-08-07] MEDS: CHOLECALCIFEROL 125 MCG (5000 IU) TABLET PO SCH ×2 (10:20→12:41)
[2021-08-07] MEDS: DEXAMETHASONE SOD PHOSPHATE 10 MG/ML 1 ML VIAL IVP SCH (10:20)
[2021-08-07 11:44] LABS: Glucose,Whole Blood 236 mg/dL (75-99)
--- NOTE | 2021-08-07 12:24 | P.PN ---
Subjective Progress Note Date: 08/07/21 This is a 60-year-old pleasant lady, patient of Dr. Gardner. Patient has history of mild intermittent asthma, hypertension, and arm BMI of 39, not vaccinated against COVID-19 infection. She never had any prior history of cold infection either, however she had symptoms of myalgia, achiness,since July 20, there after she got more short-winded, with dyspnea and exertion. Patient denies any sick contact, she lives alone, and with the testing, she is surprised that she had the covid infection, in the emergency room. Emergency room, she was hypoxemic, requiring a nonrebreather mask, 15 L nasal cannula, she presented with O2 sats in the low 90s, x-rays shows significant diffuse bilateral infiltrates, CT of the chest, shows no evidence of pulmonary emboli, there is significant right-sided adenopathy, with bilateral pneumonia. D-dimer was elevated at 1.45, AST and ALT is slightly elevated, with blood sugar of 113, she was given 1 dose of REM does appear in the emergency room she mentioned that her symptoms were only of one week, however with further inquiry, symptoms are past that 10 day michael. Next Patient was admitted, for hypoxemic respiratory failure with consultation to Dr. Lopez, for moderate severe Covid, baricitnib 4 mg daily, Decadron 6 mg IV daily, Lovenox 60 mg every 12 hours, zinc and vitaminC currently pulse ox, 90- 97%, on 15 L mental rebreather mask, T max of 101.4 the kidney, between 20-22 Crestor 8, heart rate in the 70s 08/01: Patient remains on a nonrebreather mask, 15 L, pulse ox between 89-93%, 100% FiO2, no fevers, T-max 98.1, nonlabored breathing, patient is not having any conversational dyspnea, has minimal dyspnea on exertion, transaminitis is better, sed rate is still elevated 83, CRP of 8.1, glucose ranges between 186- 206, while on dexamethasone IV. Patient is reasonably doing much better, not a candidate for the REMdesivir maintained on IV dexamethasone, and baricinib 08/02: Procalcitonin came back low and is azithromycin will be discontinued. Patient is complaining of cough and Tessalon Perles added. She is currently on 15 L high flow nasal cannula with pulse ox of 93%. She's been afebrile, heart rate 87, blood pressure 157/71. Repeat blood work reveals normal CBC. Electrolytes and renal function normal. Capillary blood glucose running between 110 and 184. AST 37 otherwise liver function tests are normal. 08/03: Patient is seen today on the cardiac stepdown unit. She has been afebrile, heart rate 79, blood pressure 1 4479, pulse ox 93% on high Flonase cannula at 15 L. Repeat blood work reveals CBC is normal. Creatinine 0.74. Blood sugars are running between 159 and 214. AST 39. She is followed by pulmonary medicine. She is encouraged to sit in chair and prone intermittently while in bed. Patient is continued on Baricitinib 4 mg daily for 14 doses, Tessalon Perles 200 mg 3 times daily scheduled, dexamethasone 6 mg IV push daily, Lovenox 60 mg subcu every 12 hours, vitamin supplements. Patient was seen today on the cardiac stepdown unit, wearing a non rebreather mask. Patient appears comfortable at current oxygen need. She is afebrile pulse rate 78 blood pressure 137/90 with oxygen saturation 100% on 15 L high flow. We'll continue to down titrate titrate the oxygenation need we will continue patient on Baricitinib day 3. Labs obtained ferritin 821 LDH 1231. Ferritin pending showing improvement. Liver enzymes improved. We'll get liver labs tomorrow. Her calcitonin is normal. Continue albuterol as needed Decadron and Lovenox. Continue supplements for COVID pneumonia patient examined at [facility]. patient is sitting comfortably in bed and is less SOB. blood glucose continues to remain elevated on steroid. Inflammatory markers continues to down trend. Patient to continue on baricitinin , dexa, vitamin supplement and therpaaeutic dose of lovemox. CXr reviewed, b/l inf ilterates has improved. Patient oxygen dropped down to 10 L with oxygen saturation maintaining at 90 %. Patient encouraged to change position every 2 hour anf use incentive spirometry 10 times every hour 08/06 Patient is doing relatively well she is examined bedside is comfortable denies any shortness of breath, cough or abdominal pain, dizziness. Patient is ambulating in her room without any major discomfort. Patient is currently on 98% on 5 L of oxygen.Continue every 2 hours change in position and incentive spirometry 10 times an hour. Continue Lovenox, dexamethasone vitamin supplemen tation. Patient is on day 5 of baricitinib 08/07 patient is doing relatively well. She is currently on 2 L of oxygen. She denies any shortness of breath or chest pain. Patient blood sugar continues to remain elevated. Lantus is adjusted to 15 units twice a day. Patient's A1c was 6.7. Continue insulin sliding scale. Patient's calcium is also appears to be evaluated. INS calcium, PTH and vitamin D ordered to evaluate the cause. Continue with dexamethasone, vitamin supplement and Lovenox. Patient is on day 6 of Baricitinib Review of Systems Constitutional: Reports chills, denies fatigue, Reports fever, Reports night sweats, Reports poor appetite, Reports sweats Ears, nose, mouth and throat: Reports as per HPI, Denies ant. neck pain, Denies bleeding gums, Denies dental pain, Denies dysphagia, Denies epistaxis, Denies headache, Denies hoarseness, Denies mouth pain, Denies nasal congestion, Denies nasal discharge, Denies nose pain, Denies odynophagia, Denies post-nasal drip, Denies sinus pain, Denies sinus pressure, Denies swelling in mouth, Denies swelling in throat, Denies sore throat, Denies vertigo, Denies voice changes Cardiovascular: Denies chest pain, no lower extremity edema no orthopnea, Reports dyspnea on exertion Respiratory: Reports as per HPI, denies cough, denies cough with phlegm, Reports dyspnea, Denies pain on inspiration, Denies pleurisy, Denies wheezing Gastrointestinal: Reports as per HPI, Denies abdominal pain, Denies belching, Denies bloating, Denies BRBPR, Denies change in bowel habits, Denies coffee gr ound emesis, Denies constipation, Denies diarrhea, Denies dyspepsia, Denies early satiety, Denies excessive gas, Denies heartburn, Denies hematemesis, Denies hematochezia, Denies indigestion, Denies jaundice, Denies lactose intolerance, Denies loss of appetite, Denies melena, Denies nausea, Denies v omiting Genitourinary: Reports as per HPI no dysuria, no frequency, no hematuria Musculoskeletal: Reports as per HPI Integumentary: Reports as per HPI, Denies color changes, Denies foot/leg ulcers Neurological: Reports as per HPI, Denies aphasia, Denies ataxia, Denies change in mentation, Denies head injury, Denies hearing difficulties, Denies lack of coordination, Denies loss of vision, Denies syncope Psychiatric: Reports as per HPI, Reports change in appetite, Denies d isorientation, Denies hypersomnia Endocrine: Reports as per HPI Hematologic/Lymphatic: Reports as per HPI, Reports easy bleeding Allergic/Immunologic: Reports as per HPI Physical Examination Gen: This is a morbidly obese 61-year-old black female. She is resting in bed and appears to be in no acute distress at rest, only on high flow nasal cannula at 15 L. HEENT: Head is atraumatic, normocephalic. Pupils equal, round. Sclerae is anicteric. NECK: Supple. No JVD. No lymphadenopathy. No thyromegaly. LUNGS: Bilateral rhonchi. No intercostal retractions. HEART: Regular rate and rhythm. No murmur. ABDOMEN: Soft. Bowel sounds are present. No masses. No tenderness. EXTREMITIES: No pedal edema. No calf tenderness. NEUROLOGICAL: Patient is awake, alert and oriented x3. Cranial nerves 2 through 12 are grossly intact. Assessment and Plan Hypercalcemia - Unclear cause - vitamin D, ionized calcium, PTH ordered Uncontrolled Tyoe 2 DM , hba1c 6.8 Increase Lantus to 15 units twice a day continue glucose checks before meals at bedtime insulin sliding scale ordered acute hypoxemic respiratory failure secondary to acute COVID infection, symptoms starting 07/20/2021, not a candidate for remdesivir, she received one-time dose of remdesivir in the emergency room on July 31. Patient is continued on Baricitinib 4 mg daily for 14 doses, Day 6 Tessalon Perles 200 mg 3 times daily scheduled, dexamethasone 6 mg IV push daily, Lovenox 60 mg subcu every 12 hours, vitamin supplements. Pulmonary consult appreciated. Diffuse bilateral pneumonia with right bronchial adenopathy, secondary to Covid 19. Continue as above. Mild intermittent asthma on albuterol when necessary, continue on Qvar inhaler BMI of 58 at high risk for deterioration DVT prophylaxis, with full dose anticoagulation Lovenox, 1 mg/kg every 12 hours GI prophylaxis, with Protonix Prognosis guarded Objective - Vital Signs Vital signs: Vital Signs Temp 98.3 F 08/07/21 04:00 Pulse 79 08/07/21 04:00 Resp 17 08/07/21 04:00 BP 132/60 08/07/21 04:00 Pulse Ox 98 08/07/21 04:00 Intake & Output 08/06/21 08/07/21 08/07/21 18:59 06:59 18:59 Intake Total 600 1400 240 Output Total 700 602 Balance -100 798 240 Weight 176.1 kg 176 kg Intake: Oral 600 1400 240 Output: Urine 700 600 Stool 2 Other: Voiding Method Bedside Commode # Voids 1 850 # Bowel Movements 1 - Labs CBC & Chem 7: 08/07/21 08:45 08/07/21 08:45 Labs: Abnormal Lab Results - Last 24 Hours (Table) 08/06/21 08/06/21 08/06/21 Range/Units 11:39 16:39 20:25 POC Glucose (mg/dL) 173 H 229 H 246 H (75-99) mg/dL 08/07/21 Range/Units 06:27 POC Glucose (mg/dL) 113 H (75-99) mg/dL
[2021-08-07] MEDS: BARICITINIB 2 MG TABLET PO SCH (12:40)
[2021-08-07 13:35] LABS: Ionized Calcium 5.3 mg/dL (4.5-5.3)
[2021-08-07 13:54] LABS: C Reactive Protein 1.6 mg/dL (<1.0)
--- NOTE | 2021-08-07 16:10 | P.PN ---
Subjective Progress Note Date: 08/07/21 Principal diagnosis: Coronavirus associated pneumonia. Acute hypoxic and 40 failure secondary to COVID-19 pneumonia This is a 60-year-old -[place] female, known history of asthma and hypertension, morbid obesity, BMI of 39.2, not vaccinated against COVID-19 infection, patient presented to the ER with 1 week history of cough, shortness of breath, low-grade fever, aches and pains, weakness, patient was reevaluated, and she was found to have positive COVID-19 PCR. And she was also found to have diffuse bilateral infiltrates on her chest x-ray consistent with COVID-19 pneumonia. Patient required nonrebreather mask/15 L nasal cannula, and her O2 saturation was in the low 90s. CT of the chest showed no evidence of pulmonary embolism, there was evidence of right sided adenopathy and moderate bilateral pneumonia. CBC was relatively normal except the patient was noted to be lymphopenic, she had elevated d-dimer 1.45. Normal renal profile, elevated liver enzymes with AST of 96 AST of 41 and her blood sugar is 133. Patient was admitted, and this consult was initiated. Patient was reevaluated today on 08/01/21, remains on a nonrebreather mask, O2 saturation 93%. However the patient tells me today that she is feeling better breathing easier, she continues to have intermittent cough, and shortness of breath upon activity. No fever no chills no hemoptysis no chest pain. CBC is relatively normal electrolytes are normal renal profile is normal Progress note dated 08/02/2021. This is a 61-year-old female, who is again seen in room 368. Currently, the patient is on 15 L high flow nasal cannula, and also a nonrebreather mass. The patient's CT angiogram was negative for pulmonary embolism. The patient is not receiving any IV fluids. She tells me that she is feeling a bit better. She has a history of asthma, hypertension, and morbid obesity. She has not been previously vaccinated against coronavirus. White count is 8, hemoglobin 12.3, hematocrit 37.6, and platelet count 355,000. Sodium, potassium, chloride, and CO2, are all normal. Anion gap is normal. BUN is 17 with a creatinine 0.83. Progress note dated 08/03/2021. 61-year-old female, again seen in room 368. Currently, the patient is on 15 L high flow nasal O2. She's not receiving any IV fluids. She sitting in the chair next to the bed. She feels like she is a bit better today than she was yesterday. CT angiogram was negative for pulmonary embolism. White count 8.4, hemoglobin 13, hematocrit 39.4, platelet count 417,000. Sodium potassium chloride normal. CO2 32, anion gap 8, BUN 17, and creatinine 0.74. Progress note dated 08/04/2021. 61-year-old female patient, seen again in room 368. The patient's currently on 15 L high flow nasal O2. She's not receiving any IV fluids. She sitting upright in her chair next to the bed. The patient does feel a bit better today than she did yesterday. She seems to have a pretty good attitude. CT angiogram was performed and was negative for PE. Laboratory data today includes a d-dimer 1.71, ferritin level [id number], and an LDH of 1231. Blood glucose was 185. The patient has not had a chest x-ray for some time, and one was ordered for tomorrow. Progress note dated 08/05/2022. 61-year-old female, who is again seen in room 368. The patient is sitting in chair next to the bed. She is on 13 L high flow nasal cannula, but her saturations are 98%, the respiratory therapist turn down her oxygen to 10 L high flow nasal cannula. The patient is not receiving any IV fluids. She's feeling much better. She's been very positive throughout this hospitalization. She denies any fever or chills. She denies any chest pain or chest discomfort. Clinically, she feels improved. No new labs to report. Chest x-ray shows diffuse bilateral opacities, and is somewhat improved compared to a chest x-ray done 5 days earlier. Progress note dated 08/06/2021. 61-year-old female again seen in room 368. The patient is currently on 3 L nasal cannula. She is doing much better. She is hoping to be discharged soon. The patient states that even when she walks, she does not get short of breath. She sitting the chair next to the bed. She is a very positive attitude. She continues on appropriate medications including vitamin C, vitamin D3, and zinc. In addition, she is on Lovenox, and Decadron. She is also on CRISTAL. White count is 8.7, he will been 12.9, hematocrit 39.5, and platelet count is 498,000. So dium potassium chloride CO2 are all normal. Anion gap 9. BUN 23, and creatinine 0.89. Calcium is 10.9. Chest x-ray dated August 05 was reviewed. Progress note dated 08/07/2021. 61-year-old black female, again seen in room 368. She's been dialed down to 2 L nasal cannula. She's hoping to be discharged in the next day or 2. She's feeling much better. She still does get short of breath when she exerts herself. White count 8.8, hemoglobin 12.9, hematocrit 38.5, and platelet count 476,000. Sodium 135, potassium 4.9, chlorides 98, CO2 24, anion gap 13, BUN 26, creatinine 0.83. Calcium is 10.6. LDH is 859. C-reactive protein is 1.6. Objective - Vital Signs Vital signs: Vital Signs Temp 98 F 08/07/21 12:43 Pulse 78 08/07/21 16:00 Resp 18 08/07/21 16:00 BP 106/61 08/07/21 16:00 Pulse Ox 96 08/07/21 16:00 Intake & Output 08/06/21 08/07/21 08/07/21 18:59 06:59 18:59 Intake Total 600 1400 1200 Output Total 700 602 750 Balance -100 798 450 Weight 176.1 kg 176 kg Intake: Oral 600 1400 1200 Output: Urine 700 600 750 Stool 2 Other: Voiding Method Bedside Commode Bedside Commode # Voids 1 850 2 # Bowel Movements 1 - Exam No acute distress, oriented 3. The patient is currently on 2 L nasal cannula. Saturations are 96%. HEENT examination is grossly unremarkable. Neck supple. Full range of motion. No adenopathy thyromegaly or neck vein distention. Cardiovascular examination reveals regular rhythm rate. S1-S2 normal. No S3 or S4. No discernible murmur noted. Heart rate 78 bpm. Heart sounds are distant. Lungs reveal diffuse bilateral rhonchi, and basilar crackles. Breath sounds equal bilaterally. No wheezes. Breath sounds are somewhat improved. Abdomen soft bowel sounds are heard. No masses or tenderness. Extremities are intact. No cyanosis clubbing or edema. Skin is without rash or lesion. Neurologic examination is brief but nonfocal. - Labs CBC & Chem 7: 08/07/21 08:45 08/07/21 08:45 Labs: Abnormal Lab Results - Last 24 Hours (Table) 08/06/21 08/06/21 08/07/21 Range/Units 16:39 20:25 06:27 Plt Count (150-450) k/uL Sodium (137-145) mmol/L BUN (7-17) mg/dL Glucose (74-99) mg/dL POC Glucose (mg/dL) 229 H 246 H 113 H (75-99) mg/dL Calcium (8.4-10.2) mg/dL AST (14-36) U/L ALT (4-34) U/L Lactate Dehydrogenase (313-618) U/L C-Reactive Protein (<1.0) mg/dL 08/07/21 08/07/21 08/07/21 Range/Units 08:45 08:45 11:42 Plt Count 476 H (150-450) k/uL Sodium 135 L (137-145) mmol/L BUN 26 H (7-17) mg/dL Glucose 179 H (74-99) mg/dL POC Glucose (mg/dL) 236 H (75-99) mg/dL Calcium 10.6 H (8.4-10.2) mg/dL AST 37 H (14-36) U/L ALT 36 H (4-34) U/L Lactate Dehydrogenase (313-618) U/L C-Reactive Protein (<1.0) mg/dL 08/07/21 Range/Units 12:59 Plt Count (150-450) k/uL Sodium (137-145) mmol/L BUN (7-17) mg/dL Glucose (74-99) mg/dL POC Glucose (mg/dL) (75-99) mg/dL Calcium (8.4-10.2) mg/dL AST (14-36) U/L ALT (4-34) U/L Lactate Dehydrogenase 859 H (313-618) U/L C-Reactive Protein 1.6 H (<1.0) mg/dL Assessment and Plan Assessment: Acute hypoxemic respiratory failure secondary to coronavirus associated pneumonia. History of mild intermittent asthma. No evidence of pulmonary embolism on CT angiogram. Benign essential hypertension. Obesity. Plan: Plan dated 08/02/2021. The patient continues on oxygen therapy. She is both on a 15 L high flow nasal cannula, and nonrebreather mask. CT angiogram was negative for pulmonary embolism. It did show bilateral infiltrates. The patient continues on the vitamin cocktail, as well as albuterol inhaler, Decadron, Lovenox, and Baricitinib. We will continue to follow make recommendations were appropriate. Prognosis is guarded. Plan dated 08/03/2021. The patient continues on 15 L high flow nasal O2. The patient is not using the nonrebreather mass. She feels like her breathing is a bit better. CT angiogram was negative for pulmonary embolism. The patient continues on vitamin C, vitamin D3, and zinc. The patient also continues on the albuterol inhaler, Decadron, Lovenox, and CRISTAL. Prognosis is certainly guarded. We will continue to follow this patient, and make recommendations where appropriate. Plan dated 08/04/2021. Clinically, the patient appears to be doing better. The patient's on 15 L high flow nasal cannula only. Her saturations are in the mid 90s. She sitting uprig ht in a chair next to the bed. CT angiogram was negative for pulmonary embolism. She remains on vitamin C, vitamin D3, and zinc. In addition, the patient's an albuterol inhaler, Decadron, Lovenox, and CRISTAL. The patient is also on a corticosteroid inhaler. We will continue to follow make recomm endations where appropriate. Plan dated 08/05/2021. The patient's O2 was 15 L yesterday, and today is 13 L, and the respiratory therapist was able to titrate her down to 10 L high flow. The patient is not getting any IV fluids. Clinically, she feels much improved. She continues on albuterol inhaler, Decadron, Lovenox, vitamins. She also continues on CRISTAL. We will continue to follow her, and make recommendations where appropriate. Prognosis is guarded though. Plan dated 08/06/2021. Currently, the patient has been titrated down to 3 L nasal cannula. The patient was on 10 L yesterday. She remains on Decadron, Lovenox, and vitamins. She is also getting the monoclonal antibody against interleukin-6. She feels much improved. CT angiogram was negative for pulmonary embolism. We will continue to follow. Possible discharge in the next 24-48 hours. The Lovenox dose was decreased to 40 mg subcu daily. Plan dated 08/07/2021. Currently, the patient is doing well. She is down to 2 L nasal cannula. She's also on Decadron, Lovenox, and vitamins. She is also getting CRISTAL. We will continue to follow make recommendations where appropriate. Possible discharge in the next 24-48 hours. Her Lovenox dose was decreased to 40 mg, just once a day. Prognosis is guarded. Time with Patient: Less than 30
[2021-08-07 17:15] LABS: Glucose,Whole Blood 331 mg/dL (75-99)
[2021-08-07] MEDS: ACETAMINOPHEN TAB 325 MG TAB PO PRN ×2 (17:41→23:37)
[2021-08-07] MEDS ORDERED: INSULIN DETEMIR (LEVEMIR) 100 UNIT/ML SYR SQ SCH (21:00)
[2021-08-07 21:15] LABS: Glucose,Whole Blood 252 mg/dL (75-99)
[2021-08-08 05:51] LABS: Glucose,Whole Blood 175 mg/dL (75-99)
[2021-08-08] MEDS: PANTOPRAZOLE 40 MG TABLET PO SCH (06:56)
[2021-08-08] MEDS: INSULIN ASPART (NovoLOG) 100 UNIT/ML VIAL SQ SCH ×4 (06:56→20:58)
[2021-08-08 08:43] LABS: Basophils % (A) 0 %; Eosinophils % (A) 0 %; HGB 14.3 gm/dL (11.4-16.0); Lymphocytes # (A) 1.1 k/uL (1.0-4.8); Lymphocytes % (A) 12 %; MCH 29.8 pg (25.0-35.0); MCHC 33.4 g/dL (31.0-37.0); MCV 89.3 fL (80.0-100.0); Mean Platelet Volume 8.6; Monocytes # (A) 0.4 k/uL (0-1.0); Monocytes % (A) 5 %; Neutrophils # (A) 7.3 k/uL (1.3-7.7); Neutrophils % (A) 81 %; Platelet Count 323 k/uL (150-450); RBC 4.81 m/uL (3.80-5.40); RDW 14.9 % (11.5-15.5); WBC 9.1 k/uL (3.8-10.6)
[2021-08-08 08:48] LABS: Albumin 4.3 g/dL (3.5-5.0); Calcium 10.5 mg/dL (8.4-10.2); Total Protein 8.1 g/dL (6.3-8.2)
[2021-08-08 09:00] LABS: Potassium 5.3 mmol/L (3.5-5.1)
[2021-08-08] MEDS: ALBUTEROL HFA INHALER INHALATION SCH ×4 (09:11→19:13)
[2021-08-08] MEDS: FLUTICASONE 110 MCG INHALER INHALATION SCH ×2 (09:11→19:15)
[2021-08-08] MEDS: ENOXAPARIN 40 MG/0.4 ML SYRINGE SQ SCH (10:16)
[2021-08-08] MEDS: INSULIN DETEMIR (LEVEMIR) 100 UNIT/ML SYR SQ SCH ×2 (10:16→20:58)
[2021-08-08] MEDS: BENZONATATE 100 MG CAP PO SCH ×3 (10:16→20:58)
[2021-08-08] MEDS: ASCORBIC ACID 500 MG TAB PO SCH (10:16)
[2021-08-08] MEDS: ZINC SULFATE 220 MG CAP PO SCH (10:17)
[2021-08-08] MEDS: BARICITINIB 2 MG TABLET PO SCH (10:17)
[2021-08-08] MEDS: DEXAMETHASONE SOD PHOSPHATE 10 MG/ML 1 ML VIAL IVP SCH (10:17)
[2021-08-08] MEDS: CHOLECALCIFEROL 125 MCG (5000 IU) TABLET PO SCH (10:17)
[2021-08-08 11:42] LABS: Glucose,Whole Blood 157 mg/dL (75-99)
--- NOTE | 2021-08-08 14:17 | P.PN ---
Subjective Progress Note Date: 08/08/21 This is a 60-year-old pleasant lady, patient of Dr. Gardner. Patient has history of mild intermittent asthma, hypertension, and arm BMI of 39, not vaccinated against COVID-19 infection. She never had any prior history of cold infection either, however she had symptoms of myalgia, achiness,since July 20, there after she got more short-winded, with dyspnea and exertion. Patient denies any sick contact, she lives alone, and with the testing, she is surprised that she had the covid infection, in the emergency room. Emergency room, she was hypoxemic, requiring a nonrebreather mask, 15 L nasal cannula, she presented with O2 sats in the low 90s, x-rays shows significant diffuse bilateral infiltrates, CT of the chest, shows no evidence of pulmonary emboli, there is significant right-sided adenopathy, with bilateral pneumonia. D-dimer was elevated at 1.45, AST and ALT is slightly elevated, with blood sugar of 113, she was given 1 dose of REM does appear in the emergency room she mentioned that her symptoms were only of one week, however with further inquiry, symptoms are past that 10 day michael. Next Patient was admitted, for hypoxemic respiratory failure with consultation to Dr. Lopez, for moderate severe Covid, baricitnib 4 mg daily, Decadron 6 mg IV daily, Lovenox 60 mg every 12 hours, zinc and vitaminC currently pulse ox, 90- 97%, on 15 L mental rebreather mask, T max of 101.4 the kidney, between 20-22 Crestor 8, heart rate in the 70s 08/01: Patient remains on a nonrebreather mask, 15 L, pulse ox between 89-93%, 100% FiO2, no fevers, T-max 98.1, nonlabored breathing, patient is not having any conversational dyspnea, has minimal dyspnea on exertion, transaminitis is better, sed rate is still elevated 83, CRP of 8.1, glucose ranges between 186- 206, while on dexamethasone IV. Patient is reasonably doing much better, not a candidate for the REMdesivir maintained on IV dexamethasone, and baricinib 08/02: Procalcitonin came back low and is azithromycin will be discontinued. Patient is complaining of cough and Tessalon Perles added. She is currently on 15 L high flow nasal cannula with pulse ox of 93%. She's been afebrile, heart rate 87, blood pressure 157/71. Repeat blood work reveals normal CBC. Electrolytes and renal function normal. Capillary blood glucose running between 110 and 184. AST 37 otherwise liver function tests are normal. 08/03: Patient is seen today on the cardiac stepdown unit. She has been afebrile, heart rate 79, blood pressure 1 4479, pulse ox 93% on high Flonase cannula at 15 L. Repeat blood work reveals CBC is normal. Creatinine 0.74. Blood sugars are running between 159 and 214. AST 39. She is followed by pulmonary medicine. She is encouraged to sit in chair and prone intermittently while in bed. Patient is continued on Baricitinib 4 mg daily for 14 doses, Tessalon Perles 200 mg 3 times daily scheduled, dexamethasone 6 mg IV push daily, Lovenox 60 mg subcu every 12 hours, vitamin supplements. Patient was seen today on the cardiac stepdown unit, wearing a non rebreather mask. Patient appears comfortable at current oxygen need. She is afebrile pulse rate 78 blood pressure 137/90 with oxygen saturation 100% on 15 L high flow. We'll continue to down titrate titrate the oxygenation need we will continue patient on Baricitinib day 3. Labs obtained ferritin 821 LDH 1231. Ferritin pending showing improvement. Liver enzymes improved. We'll get liver labs tomorrow. Her calcitonin is normal. Continue albuterol as needed Decadron and Lovenox. Continue supplements for COVID pneumonia patient examined at [facility]. patient is sitting comfortably in bed and is less SOB. blood glucose continues to remain elevated on steroid. Inflammatory markers continues to down trend. Patient to continue on baricitinin , dexa, vitamin supplement and therpaaeutic dose of lovemox. CXr reviewed, b/l inf ilterates has improved. Patient oxygen dropped down to 10 L with oxygen saturation maintaining at 90 %. Patient encouraged to change position every 2 hour anf use incentive spirometry 10 times every hour 08/06 Patient is doing relatively well she is examined bedside is comfortable denies any shortness of breath, cough or abdominal pain, dizziness. Patient is ambulating in her room without any major discomfort. Patient is currently on 98% on 5 L of oxygen.Continue every 2 hours change in position and incentive spirometry 10 times an hour. Continue Lovenox, dexamethasone vitamin supplemen tation. Patient is on day 5 of baricitinib 08/07 patient is doing relatively well. She is currently on 2 L of oxygen. She denies any shortness of breath or chest pain. Patient blood sugar continues to remain elevated. Lantus is adjusted to 15 units twice a day. Patient's A1c was 6.7. Continue insulin sliding scale. Patient's calcium is also appears to be evaluated. INS calcium, PTH and vitamin D ordered to evaluate the cause. Continue with dexamethasone, vitamin supplement and Lovenox. Patient is on day 6 of Baricitinib 08/08 patient doing relatively well currently on room air. Patient is walking in her room with minimal shortness of breath on exertion. She denies any cough, dizziness does have some crampy involving bilateral lower extremities. Vitals are stable patient is afebrile pulse 87 respiratory rate 17 and blood pressure 118/57. Labs reviewed sodium 134, potassium 5.3, BUN 25, cr 0.84, calcium 10.5 vitamin D is 27. Repeat CMP tomorrow patient to be encouraged to increase oral intake of fluids. PTH and ionized calcium pending. Patient would benefit from Eliquis for 1 month as outpatient before discharge. The walking pulse ox ordered to be evaluated before discharge her oxygen need likely discharge tomorrow Review of Systems Constitutional: Reports chills, denies fatigue, Reports fever, Reports night sweats, Reports poor appetite, Reports sweats Ears, nose, mouth and throat: Reports as per HPI, Denies ant. neck pain, Denies bleeding gums, Denies dental pain, Denies dysphagia, Denies epistaxis, Denies headache, Denies hoarseness, Denies mouth pain, Denies nasal congestion, Denies nasal discharge, Denies nose pain, Denies odynophagia, Denies post-nasal drip, Denies sinus pain, Denies sinus pressure, Denies swelling in mouth, Denies swelling in throat, Denies sore throat, Denies vertigo, Denies voice changes Cardiovascular: Denies chest pain, no lower extremity edema no orthopnea, Reports dyspnea on exertion Respiratory: Reports as per HPI, denies cough, denies cough with phlegm, Reports dyspnea, Denies pain on inspiration, Denies pleurisy, Denies wheezing Gastrointestinal: Reports as per HPI, Denies abdominal pain, Denies belching, Denies bloating, Denies BRBPR, Denies change in bowel habits, Denies coffee ground emesis, Denies constipation, Denies diarrhea, Denies dyspepsia, Denies early satiety, Denies excessive gas, Denies heartburn, Denies hematemesis, Denies hematochezia, Denies indigestion, Denies jaundice, Denies lactose intolerance, Denies loss of appetite, Denies melena, Denies nausea, Denies vomiting Genitourinary: Reports as per HPI no dysuria, no frequency, no hematuria Musculoskeletal: Reports as per HPI Integumentary: Reports as per HPI, Denies color changes, Denies foot/leg ulcers Neurological: Reports as per HPI, Denies aphasia, Denies ataxia, Denies change in mentation, Denies head injury, Denies hearing difficulties, Denies lack of coordination, Denies loss of vision, Denies syncope Psychiatric: Reports as per HPI, Reports change in appetite, Denies disorientation, Denies hypersomnia Endocrine: Reports as per HPI Hematologic/Lymphatic: Reports as per HPI, Reports easy bleeding Allergic/Immunologic: Reports as per HPI Physical Examination Gen: This is a morbidly obese 61-year-old black female. She is resting in bed and appears to be in no acute distress at rest, only on high flow nasal cannula at 15 L. HEENT: Head is atraumatic, normocephalic. Pupils equal, round. Sclerae is anicteric. NECK: Supple. No JVD. No lymphadenopathy. No thyromegaly. LUNGS: Bilateral rhonchi. No intercostal retractions. HEART: Regular rate and rhythm. No murmur. ABDOMEN: Soft. Bowel sounds are present. No masses. No tenderness. EXTREMITIES: No pedal edema. No calf tenderness. NEUROLOGICAL: Patient is awake, alert and oriented x3. Cranial nerves 2 through 12 are grossly intact. Assessment and Plan Hypercalcemia - Unclear cause - vitamin D, ionized calcium, PTH ordered - Vitamin D low - Recommend 50,000 every week for 12 weeks - Minus calcium and PTH is pending Uncontrolled Tyoe 2 DM , hba1c 6.8 Increase Lantus to 15 units twice a day continue glucose checks before meals at bedtime insulin sliding scale ordered - Would benefit from metformin at a low dose on discharge acute hypoxemic respiratory failure secondary to acute COVID infection, symptoms starting 07/20/2021, not a candidate for remdesivir, she received one-time dose of remdesivir in the emergency room on July 31. Patient is continued on Baricitinib 4 mg daily for 14 doses, Day 7 Tessalon Perles 200 mg 3 times daily scheduled, dexamethasone 6 mg IV push daily, Lovenox 60 mg subcu every 12 hours, vitamin supplements. Pulmonary consult appreciated. - Lovenox can be switched to Eliquis on discharge likely tomorrow Diffuse bilateral pneumonia with right bronchial adenopathy, secondary to Covid 19. Continue as above. Mild intermittent asthma on albuterol when necessary, continue on Qvar inhaler BMI of 58 at high risk for deterioration DVT prophylaxis, with full dose anticoagulation Lovenox, 1 mg/kg every 12 hours GI prophylaxis, with Protonix Disposition discharge tomorrow after oxygen need and Eliquis coverage Prognosis guarded Objective - Vital Signs Vital signs: Vital Signs Temp 98.0 F 08/08/21 04:00 Pulse 84 08/08/21 04:00 Resp 17 08/08/21 04:00 BP 130/72 08/08/21 04:00 Pulse Ox 95 08/08/21 04:00 Intake & Output 08/07/21 08/08/21 08/08/21 18:59 06:59 18:59 Intake Total 1440 540 118 Output Total 750 Balance 690 540 118 Intake: Oral 1440 540 118 Output: Urine 750 Other: Voiding Method Bedside Commode Bedside Commode # Voids 2 2 - Labs CBC & Chem 7: 08/08/21 07:51 08/08/21 07:51 Labs: Abnormal Lab Results - Last 24 Hours (Table) 08/07/21 08/07/21 08/07/21 Range/Units 11:42 12:59 17:13 Sodium (137-145) mmol/L Potassium (3.5-5.1) mmol/L Carbon Dioxide (22-30) mmol/L BUN (7-17) mg/dL Glucose (74-99) mg/dL POC Glucose (mg/dL) 236 H 331 H (75-99) mg/dL Calcium (8.4-10.2) mg/dL Ferritin 932.0 H (10.0-291.0) ng/mL AST (14-36) U/L ALT (4-34) U/L Lactate Dehydrogenase 859 H (313-618) U/L C-Reactive Protein 1.6 H (<1.0) mg/dL Vitamin D 25-Hydroxy 27.0 L (30.0-100.0) ng/mL 08/07/21 08/08/21 08/08/21 Range/Units 21:12 05:50 07:51 Sodium 134 L (137-145) mmol/L Potassium 5.3 H (3.5-5.1) mmol/L Carbon Dioxide 19 L (22-30) mmol/L BUN 25 H (7-17) mg/dL Glucose 134 H (74-99) mg/dL POC Glucose (mg/dL) 252 H 175 H (75-99) mg/dL Calcium 10.5 H (8.4-10.2) mg/dL Ferritin (10.0-291.0) ng/mL AST 39 H (14-36) U/L ALT 39 H (4-34) U/L Lactate Dehydrogenase (313-618) U/L C-Reactive Protein (<1.0) mg/dL Vitamin D 25-Hydroxy (30.0-100.0) ng/mL
[2021-08-08 16:55] LABS: Glucose,Whole Blood 259 mg/dL (75-99)
--- NOTE | 2021-08-08 17:00 | P.PN ---
Subjective Progress Note Date: 08/08/21 Principal diagnosis: Coronavirus associated pneumonia. Acute hypoxic and 40 failure secondary to COVID-19 pneumonia This is a 60-year-old -[place] female, known history of asthma and hypertension, morbid obesity, BMI of 39.2, not vaccinated against COVID-19 infection, patient presented to the ER with 1 week history of cough, shortness of breath, low-grade fever, aches and pains, weakness, patient was reevaluated, and she was found to have positive COVID-19 PCR. And she was also found to have diffuse bilateral infiltrates on her chest x-ray consistent with COVID-19 pneumonia. Patient required nonrebreather mask/15 L nasal cannula, and her O2 saturation was in the low 90s. CT of the chest showed no evidence of pulmonary embolism, there was evidence of right sided adenopathy and moderate bilateral pneumonia. CBC was relatively normal except the patient was noted to be lymphopenic, she had elevated d-dimer 1.45. Normal renal profile, elevated liver enzymes with AST of 96 AST of 41 and her blood sugar is 133. Patient was admitted, and this consult was initiated. Patient was reevaluated today on 08/01/21, remains on a nonrebreather mask, O2 saturation 93%. However the patient tells me today that she is feeling better breathing easier, she continues to have intermittent cough, and shortness of breath upon activity. No fever no chills no hemoptysis no chest pain. CBC is relatively normal electrolytes are normal renal profile is normal Progress note dated 08/02/2021. This is a 61-year-old female, who is again seen in room 368. Currently, the patient is on 15 L high flow nasal cannula, and also a nonrebreather mass. The patient's CT angiogram was negative for pulmonary embolism. The patient is not receiving any IV fluids. She tells me that she is feeling a bit better. She has a history of asthma, hypertension, and morbid obesity. She has not been previously vaccinated against coronavirus. White count is 8, hemoglobin 12.3, hematocrit 37.6, and platelet count 355,000. Sodium, potassium, chloride, and CO2, are all normal. Anion gap is normal. BUN is 17 with a creatinine 0.83. Progress note dated 08/03/2021. 61-year-old female, again seen in room 368. Currently, the patient is on 15 L high flow nasal O2. She's not receiving any IV fluids. She sitting in the chair next to the bed. She feels like she is a bit better today than she was yesterday. CT angiogram was negative for pulmonary embolism. White count 8.4, hemoglobin 13, hematocrit 39.4, platelet count 417,000. Sodium potassium chloride normal. CO2 32, anion gap 8, BUN 17, and creatinine 0.74. Progress note dated 08/04/2021. 61-year-old female patient, seen again in room 368. The patient's currently on 15 L high flow nasal O2. She's not receiving any IV fluids. She sitting upright in her chair next to the bed. The patient does feel a bit better today than she did yesterday. She seems to have a pretty good attitude. CT angiogram was performed and was negative for PE. Laboratory data today includes a d-dimer 1.71, ferritin level [id number], and an LDH of 1231. Blood glucose was 185. The patient has not had a chest x-ray for some time, and one was ordered for tomorrow. Progress note dated 08/05/2022. 61-year-old female, who is again seen in room 368. The patient is sitting in chair next to the bed. She is on 13 L high flow nasal cannula, but her saturations are 98%, the respiratory therapist turn down her oxygen to 10 L high flow nasal cannula. The patient is not receiving any IV fluids. She's feeling much better. She's been very positive throughout this hospitalization. She denies any fever or chills. She denies any chest pain or chest discomfort. Clinically, she feels improved. No new labs to report. Chest x-ray shows diffuse bilateral opacities, and is somewhat improved compared to a chest x-ray done 5 days earlier. Progress note dated 08/06/2021. 61-year-old female again seen in room 368. The patient is currently on 3 L nasal cannula. She is doing much better. She is hoping to be discharged soon. The patient states that even when she walks, she does not get short of breath. She sitting the chair next to the bed. She is a very positive attitude. She continues on appropriate medications including vitamin C, vitamin D3, and zinc. In addition, she is on Lovenox, and Decadron. She is also on CRISTAL. White count is 8.7, he will been 12.9, hematocrit 39.5, and platelet count is 498,000. So dium potassium chloride CO2 are all normal. Anion gap 9. BUN 23, and creatinine 0.89. Calcium is 10.9. Chest x-ray dated August 05 was reviewed. Progress note dated 08/07/2021. 61-year-old black female, again seen in room 368. She's been dialed down to 2 L nasal cannula. She's hoping to be discharged in the next day or 2. She's feeling much better. She still does get short of breath when she exerts herself. White count 8.8, hemoglobin 12.9, hematocrit 38.5, and platelet count 476,000. Sodium 135, potassium 4.9, chlorides 98, CO2 24, anion gap 13, BUN 26, creatinine 0.83. Calcium is 10.6. LDH is 859. C-reactive protein is 1.6. Progress note dated 08/08/2021. Very pleasant 61-year-old black female, again seen in room 368. Currently, she has been weaned off of oxygen therapy. She's hoping to be discharged tomorrow. She's feeling much improved. She does still have shortness of breath on exertion. Today's laboratory data included a white count 9.1, hemoglobin 14.3, hematocrit 43.0, and a platelet count of 323,000. Sodium was 134, potassium 5.3, chlorides 100, CO2 19, anion gap 15, BUN 25, and creatinine 0.84. Calcium is 10.5. Objective - Vital Signs Vital signs: Vital Signs Temp 98.2 F 08/08/21 13:17 Pulse 87 08/08/21 13:17 Resp 17 08/08/21 13:17 BP 118/57 08/08/21 13:17 Pulse Ox 92 L 08/08/21 13:17 Intake & Output 08/07/21 08/08/21 08/08/21 18:59 06:59 18:59 Intake Total 1440 540 838 Output Total 750 400 Balance 690 540 438 Weight 159.8 kg Intake: Oral 1440 540 838 Output: Urine 750 400 Other: Voiding Method Bedside Commode Bedside Commode Bedside Commode # Voids 2 2 2 - Exam No acute distress, oriented 3. The patient is currently on room air with saturations between 92-96%. HEENT examination is grossly unremarkable. Neck supple. Full range of motion. No adenopathy thyromegaly or neck vein distention. Cardiovascular examination reveals regular rhythm rate. S1-S2 normal. No S3 or S4. No discernible murmur noted. Heart rate 87 bpm. Heart sounds are distant. Lungs reveal diffuse bilateral rhonchi, and basilar crackles. Breath sounds equal bilaterally. No wheezes. Breath sounds are somewhat improved. Abdomen soft bowel sounds are heard. No masses or tenderness. Extremities are intact. No cyanosis clubbing or edema. Skin is without rash or lesion. Neurologic examination is brief but nonfocal. - Labs CBC & Chem 7: 08/08/21 07:51 08/08/21 07:51 Labs: Abnormal Lab Results - Last 24 Hours (Table) 08/07/21 08/07/21 08/07/21 Range/Units 12:59 17:13 21:12 Sodium (137-145) mmol/L Potassium (3.5-5.1) mmol/L Carbon Dioxide (22-30) mmol/L BUN (7-17) mg/dL Glucose (74-99) mg/dL POC Glucose (mg/dL) 331 H 252 H (75-99) mg/dL Calcium (8.4-10.2) mg/dL Ferritin 932.0 H (10.0-291.0) ng/mL AST (14-36) U/L ALT (4-34) U/L Vitamin D 25-Hydroxy 27.0 L (30.0-100.0) ng/mL 08/08/21 08/08/21 08/08/21 Range/Units 05:50 07:51 11:40 Sodium 134 L (137-145) mmol/L Potassium 5.3 H (3.5-5.1) mmol/L Carbon Dioxide 19 L (22-30) mmol/L BUN 25 H (7-17) mg/dL Glucose 134 H (74-99) mg/dL POC Glucose (mg/dL) 175 H 157 H (75-99) mg/dL Calcium 10.5 H (8.4-10.2) mg/dL Ferritin (10.0-291.0) ng/mL AST 39 H (14-36) U/L ALT 39 H (4-34) U/L Vitamin D 25-Hydroxy (30.0-100.0) ng/mL 08/08/21 Range/Units 16:50 Sodium (137-145) mmol/L Potassium (3.5-5.1) mmol/L Carbon Dioxide (22-30) mmol/L BUN (7-17) mg/dL Glucose (74-99) mg/dL POC Glucose (mg/dL) 259 H (75-99) mg/dL Calcium (8.4-10.2) mg/dL Ferritin (10.0-291.0) ng/mL AST (14-36) U/L ALT (4-34) U/L Vitamin D 25-Hydroxy (30.0-100.0) ng/mL Assessment and Plan Assessment: Acute hypoxemic respiratory failure secondary to coronavirus associated pneumonia. History of mild intermittent asthma. No evidence of pulmonary embolism on CT angiogram. Benign essential hypertension. Obesity. Plan: Plan dated 08/02/2021. The patient continues on oxygen therapy. She is both on a 15 L high flow nasal cannula, and nonrebreather mask. CT angiogram was negative for pulmonary embolism. It did show bilateral infiltrates. The patient continues on the vitamin cocktail, as well as albuterol inhaler, Decadron, Lovenox, and Baricitinib. We will continue to follow make recommendations were appropriate. Prognosis is guarded. Plan dated 08/03/2021. The patient continues on 15 L high flow nasal O2. The patient is not using the nonrebreather mass. She feels like her breathing is a bit better. CT angiogram was negative for pulmonary embolism. The patient continues on vitamin C, vi tamin D3, and zinc. The patient also continues on the albuterol inhaler, Decadron, Lovenox, and CRISTAL. Prognosis is certainly guarded. We will continue to follow this patient, and make recommendations where appropriate. Plan dated 08/04/2021. Clinically, the patient appears to be doing better. The patient's on 15 L high flow nasal cannula only. Her saturations are in the mid 90s. She sitting upright in a chair next to the bed. CT angiogram was negative for pulmonary embolism. She remains on vitamin C, vitamin D3, and zinc. In addition, the patient's an albuterol inhaler, Decadron, Lovenox, and CRISTAL. The patient is also on a corticosteroid inhaler. We will continue to follow make recommendations where appropriate. Plan dated 08/05/2021. The patient's O2 was 15 L yesterday, and today is 13 L, and the respiratory therapist was able to titrate her down to 10 L high flow. The patient is not getting any IV fluids. Clinically, she feels much improved. She continues on albuterol inhaler, Decadron, Lovenox, vitamins. She also continues on CRISTAL. We will continue to follow her, and make recommendations where appropriate. Prognosis is guarded though. Plan dated 08/06/2021. Currently, the patient has been titrated down to 3 L nasal cannula. The patient was on 10 L yesterday. She remains on Decadron, Lovenox, and vitamins. She is also getting the monoclonal antibody against interleukin-6. She feels much improved. CT angiogram was negative for pulmonary embolism. We will continue to follow. Possible discharge in the next 24-48 hours. The Lovenox dose was decreased to 40 mg subcu daily. Plan dated 08/07/2021. Currently, the patient is doing well. She is down to 2 L nasal cannula. She's also on Decadron, Lovenox, and vitamins. She is also getting CRISTAL. We will continue to follow make recommendations where appropriate. Possible discharge in the next 24-48 hours. Her Lovenox dose was decreased to 40 mg, just once a day. Prognosis is guarded. Plan dated 08/08/2021. Currently, the patient is doing much better. She has been weaned down to room air. Her saturations are running between 92% up to 96%. She remains on Decadron, Lovenox, and vitamins. She is also still getting CRISTAL. We will continue to follow and make recommendations where appropriate. Hopefully, she'll be discharged soon. Prognosis is thought to be generally good. Time with Patient: Less than 30
[2021-08-08 20:15] LABS: Glucose,Whole Blood 255 mg/dL (75-99)
[2021-08-08] MEDS: ACETAMINOPHEN TAB 325 MG TAB PO PRN (20:58)
[2021-08-09 06:05] LABS: Glucose,Whole Blood 205 mg/dL (75-99)
[2021-08-09] MEDS: INSULIN ASPART (NovoLOG) 100 UNIT/ML VIAL SQ SCH ×2 (06:10→12:02)
[2021-08-09] MEDS: PANTOPRAZOLE 40 MG TABLET PO SCH (06:10)
[2021-08-09 07:57] LABS: Basophils % (A) 0 %; Eosinophils % (A) 0 %; HCT 39.6 % (34.0-46.0); HGB 13.4 gm/dL (11.4-16.0); Lymphocytes % (A) 11 %; MCH 29.4 pg (25.0-35.0); MCHC 33.9 g/dL (31.0-37.0); MCV 86.7 fL (80.0-100.0); Monocytes # (A) 0.4 k/uL (0-1.0); Monocytes % (A) 5 %; Neutrophils # (A) 7.5 k/uL (1.3-7.7); Neutrophils % (A) 83 %; Platelet Count 436 k/uL (150-450); RBC 4.57 m/uL (3.80-5.40)
[2021-08-09 08:01] LABS: Albumin 4.1 g/dL (3.5-5.0); Calcium 10.4 mg/dL (8.4-10.2); Total Bilirubin 0.7 mg/dL (0.2-1.3); Total Protein 7.6 g/dL (6.3-8.2)
[2021-08-09 08:04] LABS: Potassium 4.8 mmol/L (3.5-5.1)
[2021-08-09] MEDS: INSULIN DETEMIR (LEVEMIR) 100 UNIT/ML SYR SQ SCH (08:59)
[2021-08-09] MEDS: ASCORBIC ACID 500 MG TAB PO SCH (08:59)
[2021-08-09] MEDS: DEXAMETHASONE SOD PHOSPHATE 10 MG/ML 1 ML VIAL IVP SCH (08:59)
[2021-08-09] MEDS: ENOXAPARIN 40 MG/0.4 ML SYRINGE SQ SCH (08:59)
[2021-08-09] MEDS: BENZONATATE 100 MG CAP PO SCH (08:59)
[2021-08-09] MEDS: ZINC SULFATE 220 MG CAP PO SCH (08:59)
[2021-08-09] MEDS: CHOLECALCIFEROL 125 MCG (5000 IU) TABLET PO SCH (08:59)
[2021-08-09] MEDS: ACETAMINOPHEN TAB 325 MG TAB PO PRN (09:12)
[2021-08-09 09:31] VITALS: RESP 19
[2021-08-09] MEDS: ALBUTEROL HFA INHALER INHALATION SCH ×2 (10:03→12:54)
[2021-08-09] MEDS: FLUTICASONE 110 MCG INHALER INHALATION SCH (10:04)
--- NOTE | 2021-08-09 11:10 | P.PN ---
Subjective Progress Note Date: 08/09/21 60-year-old -[place] male patient, morbidly obese with a BMI of 55, also known to have hypertension and asthma, not vaccinated for COVID-19, presents with an infection with mobility related pneumonia. Patient was quite hypoxic and he was requiring high flow oxygen at 15 L in addition to a nonrebreather facemask. CT angiogram that was done at time of admission showed no evidence of any pulmonary embolism. The patient was treated with a combination of Decadron and Baricitinib per protocol. He is doing well. Her oxygenation is improved. Currently is on room air oxygen. Blood work has been essentially stable. No new complaints otherwise for now. He is also on Lovenox for DVT prophylaxis. He is taken Levemir insulin for blood sugar control at 15 units a day plus sliding scale coverage. On today's evaluation, there has been further improvement in the patient's oxygenation as mentioned and currently, the patient is on room air oxygen. Repeat chest x-ray that was done today showed stable lower lobe pulmonary infiltrates more so on the left the labs are essentially within normal limits. Sodium level is at 134 and LDH level is down to 859 and a CRP level is down to 1.6. Objective - Vital Signs Vital signs: Vital Signs Temp 97.4 F L 08/09/21 08:00 Pulse 83 08/09/21 08:00 Resp 19 08/09/21 08:00 BP 129/59 08/09/21 08:00 Pulse Ox 94 L 08/09/21 10:04 Intake & Output 08/08/21 08/09/21 08/09/21 18:59 06:59 18:59 Intake Total 838 860 600 Output Total 400 1000 300 Balance 438 -140 300 Weight 159.8 kg 159.7 kg Intake: Oral 838 860 600 Output: Urine 400 1000 300 Other: Voiding Method Bedside Commode Bedside Commode # Voids 2 1 # Bowel Movements 1 1 - Exam No acute distress, oriented 3. The patient is currently on room air with saturations between 92-96%. HEENT examination is grossly unremarkable. Neck supple. Full range of motion. No adenopathy thyromegaly or neck vein distention. Cardiovascular examination reveals regular rhythm rate. S1-S2 normal. No S3 or S4. No discernible murmur noted. Heart rate 87 bpm. Heart sounds are distant. Lungs reveal diffuse bilateral rhonchi, and basilar crackles. Breath sounds equal bilaterally. No wheezes. Breath sounds are somewhat improved. Abdomen soft bowel sounds are heard. No masses or tenderness. Extremities are intact. No cyanosis clubbing or edema. Skin is without rash or lesion. Neurologic examination is brief but nonfocal. - Labs CBC & Chem 7: 08/09/21 06:35 08/09/21 06:35 Labs: Abnormal Lab Results - Last 24 Hours (Table) 08/08/21 08/08/21 08/08/21 Range/Units 11:40 16:50 20:13 Sodium (137-145) mmol/L BUN (7-17) mg/dL Glucose (74-99) mg/dL POC Glucose (mg/dL) 157 H 259 H 255 H (75-99) mg/dL Calcium (8.4-10.2) mg/dL 08/09/21 08/09/21 Range/Units 05:58 06:35 Sodium 134 L (137-145) mmol/L BUN 28 H (7-17) mg/dL Glucose 173 H (74-99) mg/dL POC Glucose (mg/dL) 205 H (75-99) mg/dL Calcium 10.4 H (8.4-10.2) mg/dL Assessment and Plan Plan: 1 Acute hypoxemic respiratory failure secondary to coronavirus associated pneumonia. The patient is morbidly obese. The patient is improving in his oxygenation general is improved with treatment of Decadron and Baricitinib. He is also on Lovenox for DVT prophylaxis. 2 History of mild intermittent asthma. 3 No evidence of pulmonary embolism on CT angiogram. 4 Benign essential hypertension. 5 Obesity. She is good for this lady. I don't Plan: Currently, the patient is doing much better. She has been weaned down to room air. Her saturations are running between 92% up to 96%. She remains on Decadron, Lovenox, and vitamins. She is also still getting CRISTAL. This may be discontinued and the patient may also be considered for discharge unit today or within next 24 hours pH is no ga llop pH is on room air oxygen. No difficulties with breathing. Labs are all within normal limits. She is still on Decadron 6 mg IV on a daily basis and she is also on Levemir insulin 15 units twice a day plus a sliding scale coverage. Hopefully, she'll be discharged soon. Prognosis is thought to be generally good.
--- NOTE | 2021-08-09 11:18 | P.DS ---
Providers Date of admission: 07/31/21 04:02 Expected date of discharge: 08/09/21 Attending physician: Spencer Pierce Consults: 07/31/21 04:03 Consult Physician Routine Consulting Provider: Gayle Hyatt Consult Reason/Comments: Hypoxic respiratory failure; COVID pneumonia Do you want consulting provider notified?: Yes Primary care physician: Juan Gardner [facility] Course: This is a 60-year-old pleasant lady, patient of Dr. Gardner. Patient has history of mild intermittent asthma, hypertension, and arm BMI of 39, not vaccinated against COVID-19 infection. She never had any prior history of cold infection either, however she had symptoms of myalgia, achiness,since July 20, there after she got more short-winded, with dyspnea and exertion. Patient denies any sick contact, she lives alone, and with the testing, she is surprised that she had the covid infection, in the emergency room. Emergency room, she was hypoxemic, requiring a nonrebreather mask, 15 L nasal cannula, she presented with O2 sats in the low 90s, x-rays shows significant diffuse bilateral infiltrates, CT of the chest, shows no evidence of pulmonary emboli, there is significant right-sided adenopathy, with bilateral pneumonia. D-dimer was elevated at 1.45, AST and ALT is slightly elevated, with blood sugar of 113, she was given 1 dose of REM does appear in the emergency room she mentioned that her symptoms were only of one week, however with further inquiry, symptoms are past that 10 day michael. Next Patient was admitted, for hypoxemic respiratory failure with consultation to Dr. Lopez, for moderate severe Covid, baricitnib 4 mg daily, Decadron 6 mg IV daily, Lovenox 60 mg every 12 hours, zinc and vitaminC currently pulse ox, 90- 97%, on 15 L mental rebreather mask, T max of 101.4 the kidney, between 20-22 Crestor 8, heart rate in the 70s 08/01: Patient remains on a nonrebreather mask, 15 L, pulse ox between 89-93%, 100% FiO2, no fevers, T-max 98.1, nonlabored breathing, patient is not having any conversational dyspnea, has minimal dyspnea on exertion, transaminitis is better, sed rate is still elevated 83, CRP of 8.1, glucose ranges between 186- 206, while on dexamethasone IV. Patient is reasonably doing much better, not a candidate for the REMdesivir maintained on IV dexamethasone, and baricinib 08/02: Procalcitonin came back low and is azithromycin will be discontinued. Patient is complaining of cough and Tessalon Perles added. She is currently on 15 L high flow nasal cannula with pulse ox of 93%. She's been afebrile, heart rate 87, blood pressure 157/71. Repeat blood work reveals normal CBC. Electrolytes and renal function normal. Capillary blood glucose running between 110 and 184. AST 37 otherwise liver function tests are normal. 08/03: Patient is seen today on the cardiac stepdown unit. She has been afebrile, heart rate 79, blood pressure 1 4479, pulse ox 93% on high Flonase cannula at 15 L. Repeat blood work reveals CBC is normal. Creatinine 0.74. Blood sugars are running between 159 and 214. AST 39. She is followed by pulmonary medicine. She is encouraged to sit in chair and prone intermittently while in bed. Patient is continued on Baricitinib 4 mg daily for 14 doses, Tessalon Perles 200 mg 3 times daily scheduled, dexamethasone 6 mg IV push daily, Lovenox 60 mg subcu every 12 hours, vitamin supplements. Patient was seen today on the cardiac stepdown unit, wearing a non rebreather mask. Patient appears comfortable at current oxygen need. She is afebrile pulse rate 78 blood pressure 137/90 with oxygen saturation 100% on 15 L high flow. We'll continue to down titrate titrate the oxygenation need we will continue patient on Baricitinib day 3. Labs obtained ferritin 821 LDH 1231. Ferritin pending showing improvement. Liver enzymes improved. We'll get liver labs tomorrow. Her calcitonin is normal. Continue albuterol as needed Decadron and Lovenox. Continue supplements for COVID pneumonia patient examined at [facility]. patient is sitting comfortably in bed and is less SOB. blood glucose continues to remain elevated on steroid. Inflammatory markers continues to down trend. Patient to continue on baricitinin , dexa, vitamin supplement and therpaaeutic dose of lovemox. CXr reviewed, b/l infilterates has improved. Patient oxygen dropped down to 10 L with oxygen saturation maintaining at 90 %. Patient encouraged to change position every 2 hour anf use incentive spirometry 10 times every hour 08/06 Patient is doing relatively well she is examined bedside is comfortable denies any shortness of breath, cough or abdominal pain, dizziness. Patient is ambulating in her room without any major discomfort. Patient is currently on 98% on 5 L of oxygen.Continue every 2 hours change in position and incentive spirometry 10 times an hour. Continue Lovenox, dexamethasone vitamin supplementation. Patient is on day 5 of baricitinib 08/07 patient is doing relatively well. She is currently on 2 L of oxygen. She denies any shortness of breath or chest pain. Patient blood sugar continues to remain elevated. Lantus is adjusted to 15 units twice a day. Patient's A1c was 6.7. Continue insulin sliding scale. Patient's calcium is also appears to be evaluated. INS calcium, PTH and vitamin D ordered to evaluate the cause. Continue with dexamethasone, vitamin supplement and Lovenox. Patient is on day 6 of Baricitinib 08/08 patient doing relatively well currently on room air. Patient is walking in her room with minimal shortness of breath on exertion. She denies any cough, dizziness does have some crampy involving bilateral lower extremities. Vitals are stable patient is afebrile pulse 87 respiratory rate 17 and blood pressure 118/57. Labs reviewed sodium 134, potassium 5.3, BUN 25, cr 0.84, calcium 10.5 vitamin D is 27. Repeat CMP tomorrow patient to be encouraged to increase oral intake of fluids. PTH and ionized calcium pending. Patient would benefit from Eliquis for 1 month as outpatient before discharge. The walking pulse ox ordered to be evaluated before discharge her oxygen need likely discharge tomorrow 08/09: Patient is seen in follow-up today. Pulmonary medicine has ruled out pulmonary embolism and no need for anticoagulation. Home oxygen therapy will be arranged by behavioral health case manager. Repeat CBC is unremarkable. Creatinine 0.86. Blood sugars are running between 157 and 259. Liver function tests normal. Calcium 10.4. Patient has been seen by pulmonary medicine and cleared for discharge. Patient will be discharged home in stable condition. DISCHARGE DIAGNOSES Acute hypoxic respiratory failure secondary to acute Covid infection Hypercalcemia Diabetes mellitus type 2, uncontrolled with hyperglycemia Mild intermittent asthma Diffuse bilateral pneumonia with right bronchial adenopathy, secondary to Covid 19. Chronic hypoxic respiratory failure requiring home oxygen therapy BMI of 58 Hypertension Pulmonary embolism has been ruled out by pulmonary medicine. No need for anticoagulation. DISCHARGE PLAN Home Impression and plan of care have been directed as dictated by the signing physician. iDanna Flores nurse practitioner acting as scribe for signing physician. Patient Condition at Discharge: Good Plan - Discharge Summary New Discharge Prescriptions: New Zinc Sulfate [Orazinc] 220 mg PO DAILY cap Ascorbic Acid [Vitamin C] 1,000 mg PO DAILY tab Aspirin EC [Ecotrin Low Dose] 81 mg PO BID #28 tab metFORMIN HCL [metFORMIN HCL ER] 500 mg PO DAILY #30 tab Pantoprazole [Protonix] 40 mg PO AC-BRKFST #30 tab Benzonatate [Tessalon Perles] 200 mg PO TID #30 cap Cholecalciferol [Vitamin D3 (125 Mcg = 5000 Iu)] 125 mcg PO DAILY tablet Dexamethasone [Decadron] 6 mg PO DAILY #5 tablet Continue Beclomethasone Dipropionate [Qvar 80mcg Redihaler] 1 puff INHALATION RT-BID Albuterol Inhaler [Ventolin Hfa Inhaler] 2 puff INHALATION RT-Q6H PRN PRN Reason: Shortness Of Breath Albuterol Nebulized [Ventolin Nebulized] 2.5 mg INHALATION RT-Q6H PRN PRN Reason: Shortness Of Breath Discharge Medication List Albuterol Inhaler [Ventolin Hfa Inhaler] 2 puff INHALATION RT-Q6H PRN 07/31/21 [History] Albuterol Nebulized [Ventolin Nebulized] 2.5 mg INHALATION RT-Q6H PRN 07/31/21 [History] Beclomethasone Dipropionate [Qvar 80mcg Redihaler] 1 puff INHALATION RT-BID 07/31/21 [History] Ascorbic Acid [Vitamin C] 1,000 mg PO DAILY tab 08/09/21 [Rx] Aspirin EC [Ecotrin Low Dose] 81 mg PO BID #28 tab 08/09/21 [Rx] Benzonatate [Tessalon Perles] 200 mg PO TID #30 cap 08/09/21 [Rx] Cholecalciferol [Vitamin D3 (125 Mcg = 5000 Iu)] 125 mcg PO DAILY tablet 08/09/21 [Rx] Dexamethasone [Decadron] 6 mg PO DAILY #5 tablet 08/09/21 [Rx] Pantoprazole [Protonix] 40 mg PO AC-BRKFST #30 tab 08/09/21 [Rx] Zinc Sulfate [Orazinc] 220 mg PO DAILY cap 08/09/21 [Rx] metFORMIN HCL [metFORMIN HCL ER] 500 mg PO DAILY #30 tab 08/09/21 [Rx] Follow up Appointment(s)/Referral(s): Loyd Nina DO [Doctor of Osteopathic Medicine] - 08/31/21 10:00 am (with Dr. Lopez) Juan Gardner MD [Primary Care Provider] - 1 Week (office did not answer at this time. please call to make follow-up appointment) Patient Instructions/Handouts: Coronavirus Disease 2019 (COVID-19) Discharge Disposition: HOME SELF-CARE
[2021-08-09 11:43] LABS: Glucose,Whole Blood 157 mg/dL (75-99)
[2021-08-09 12:12] VITALS: BP 146/74; PULSE 72; TEMP 96.6
== END 2021-08-09 15:48 | disposition home or self-care (01) | DRG 177 ==
LOC: EC 01:35 → 3SCARD 04:02
PROVIDERS: ADMIT Internal Medicine Geriatric Medicine; ATTEND Internal Medicine Geriatric Medicine
PROC: XW033E5 Introduction of Remdesivir Anti-infective into Peripheral Vein, Percutaneous Approach, New Technology Group 5 (ICD-10-PCS; principal; 2021-07-31)
PROC: XW0DXM6 Introduction of Baricitinib into Mouth and Pharynx, External Approach, New Technology Group 6 (ICD-10-PCS; 2021-08-01)
DX: U07.1 COVID-19 (principal); J12.82 Pneumonia due to coronavirus disease 2019; J96.01 Acute respiratory failure with hypoxia; Z68.43 Body mass index [BMI] 50.0-59.9, adult; D72.810 Lymphocytopenia; E11.65 Type 2 diabetes mellitus with hyperglycemia; E66.01 Morbid (severe) obesity due to excess calories; E83.52 Hypercalcemia; I10 Essential (primary) hypertension; J45.20 Mild intermittent asthma, uncomplicated; Z79.01 Long term (current) use of anticoagulants; Z79.4 Long term (current) use of insulin; Z79.899 Other long term (current) drug therapy; Z96.652 Presence of left artificial knee joint; R79.89 Other specified abnormal findings of blood chemistry; R74.8 Abnormal levels of other serum enzymes
CPT/HCPCS: 36415; 71045; 71046; 71275; 80053; 82306; 82330; 82728; 83036; 83605; 83615; 83735; 83970; 84145; 84484; 85025; 85379; 85610; 85652; 85730; 86140; 87635; 93005; 94640; 94760; 96365; 96375; 99285